=== PATIENT | female | born 1940 | race African-American/Black ===

== ENCOUNTER 2016-11-06 10:58 | Inpatient (IN) ==
[2016-11-06] MEDS ORDERED: ALBUTEROL/IPRATROPIUM 3 ML NEB RESP TX PRN (11:48)
[2016-11-06] MEDS ORDERED: ONDANSETRON 4 MG/2 ML VIAL IV PRN (11:48)
[2016-11-06] MEDS ORDERED: ACETAMINOPHEN 325 MG TABLET PO PRN (11:48)
--- NOTE | 2016-11-06 12:01 | Pulmonology History & Physical ---
History of Present Illness Chief complaint: RLL & RML pneumonia, outpt treatment failure History of present illness: SARA Pearl acting as scribe for Dr. Geo Jimenez. Ms. Boo is a 76 year old /Black female from [place], [place]. She was seen today [facility] for a previously scheduled three month follow up exam, but was found to have an acute RML and RLL infiltrate and a possible early lingular infiltrate also compatible with pneumonia. She had been seen in the Emergency Department Thursday11/02/16 with flu- like symptoms and fever and treated with Tamiflu and Prednisone and f/u with PCP in 2-3 days if no improvement. Today in the office she was hypoxic with o2 sat 89% on room air, normally she is anywhere from 98-99% on room air. She was very SOB and weak, unable to stand for lateral view CXR, cough, congestion, wheezing, and chills. She complained of cough, wheeze, chest congestion, chills. Because of her acute illness, multiple co-morbidities, and advanced age , she has been admitted for further evaluation and care. She reports increased shortness of breath and MORRISSEY of two days duration. She denies any cardiac angina or palpitations. She denies reflux or dysphagia. There has been no bleeding from any site. No change in bowel or bladder habits. No TIA symptoms or syncope. All other systems were reviewed and were negative. Allergies: Bactrim DS hurt her stomach. She does not tolerate Motrin or Benadryl. Cipro hurt her stomach. Cannot tolerate Hydrocodone. Home medications: See list. Immunizations: She takes yearly flu shots. She had a pneumovax in 2010. Past medical history/ Surgical history: [facility] hospitalization 08-02-07 through for RML and RLL pneumonia probably bacterial. She was treated with Merrem during her hospitalization. [facility] hospitalization 03/19/16-03/28/16 under the care of Dr. Jimenez for acute bacterial RML and RLL pneumonia treated with Zithromax and Rocephin initially but cleared after changing to Merrem and Fortaz. Asthma. Esophageal stricture. GERD. High blood pressure. Hypothyroidism. DJD. Gout. Pectus excavatum. History of microaspiration. Cholecystectomy. Near total thyroidectomy 02-23-12 for multinodular goiter. Surgery done by Dr. Marie. Bilateral cataract surgery by Dr. Asif August 2015. Social history: The patient never smoked. She, however, gets a good bit of cigarette exposure due to the fact that her whole family smokes. She does not use alcohol. Family history: Mother and brothers had high blood pressure. Past procedures: She had a barium swallow 12-27-15 which showed timo aspiration. Barium swallow done 02-07-15 showed persistent moderate narrowing of the upper esophagus at C5-C6 levels, a prominent cricopharyngeal muscle impression, and a small sliding hiatal hernia. Esophageal motility study done 07-15, impression was abnormal esophageal motility study with follow-up multiple tertiary contractions. Last esophageal dilatation was 08-15-[address] Bullard. Esophageal dilatation 06-01-[address] Bullard. E-scope done by 02-08-13 showed lower esophageal stricture which was dilated. C- scope done by Dr. Bullard 02-15-13 showed diverticula of the colon and poor prep. Bone densities done 07-02-11 showed AP spine T score of 0.0 and femur T- score of -0.1. Normal bone density. The patient gets yearly mammograms which have been negative for cancer. Laboratory: WBC 6900 with 41.3% segs and 46.2% lymphs. H&H 11.6/37. Electrolytes are normal with normal BUN and Creatinine. Mag is low normal at 1.8. TSH is 5 likely due to her acute illness but we will recheck this. Sputums are pending. CXR. Done 11/06/16 at [facility]. Acute RUL and RLL infiltrate with a possible early lingular infiltrate compatible with pneumonia. Very mild stable cardiomegaly which is accentuated by the patient's body habitus. Pulmonary arteries are top normal in size. There is no hilar adenopathy but the right hilum does contain dense calcifications. This is unchanged from previous studies. The mediastinum is normal. There are scattered areas of interstitial scarring in all five lobes of the lung. Lateral view was not done due to patient inability to stand for XR. Home Medications Medication Instructions Recorded Confirmed Type Clorazepate Dipotassium 3.75 mg PO TID PRN 01/25/15 11/06/16 History Diltiazem HCl [Diltiazem ER (24 360 mg PO DAILY 01/25/15 11/06/16 History hr)] Loratadine [Claritin] 10 mg PO DAILY 01/25/15 11/06/16 History Metoprolol Tartrate 25 mg PO BID 01/25/15 11/06/16 History Montelukast Tab [Singulair Tab] 10 mg PO DAILY 01/25/15 11/06/16 History Omeprazole [Prilosec] 40 mg PO BIDAC 01/25/15 11/06/16 History Theophylline ER Tab 300 mg PO BID W/MEALS 01/25/15 11/06/16 History Triamterene/Hydrochlorothiazid 1 each PO BID PRN 01/25/15 11/06/16 History [Triamterene-Hctz 37.5-25 mg Cp] Fluticasone/Vilanterol [Breo 1 puff INH DAILY 03/19/16 11/06/16 History Ellipta 100-25 Mcg INH] Allopurinol [Zyloprim] 100 mg PO DAILY #30 tablet 03/28/16 11/06/16 Rx Aspirin Chew Tab 81 mg PO DAILY tablet 03/28/16 11/06/16 Rx Benzonatate [Tessalon] 200 mg PO BID PRN #60 capsule 03/28/16 11/06/16 Rx Docusate Sodium Cap [Colace Cap] 200 mg PO DAILY PRN #0 capsule 03/28/16 Rx Magnesium Chloride [Slow Mag] 64 mg PO DAILY #60 tablet 03/28/16 11/06/16 Rx Albuterol Tab [Proventil Tab] 2 mg PO BID 11/02/16 11/06/16 History Iron (Carbonyl) [Feosol Natural 45 mg PO DAILY 11/02/16 11/06/16 History Release Tab] Levothyroxine Tab [Synthroid Tab] 125 mcg PO DAILY 11/02/16 11/06/16 History Oseltamivir Cap [Tamiflu Cap] 75 mg PO DAILY #10 capsule 11/02/16 11/06/16 Rx Potassium Chloride 10 meq PO DAILY 11/02/16 11/06/16 History predniSONE TAB [PredniSONE] 10 mg PO DAILY 11/02/16 11/06/16 History Allergies Allergy/AdvReac Type Severity Reaction Status Date / Time acetaminophen [From Lortab] Allergy Anxiety Verified 11/02/16 17:29 hydrocodone [From Lortab] Allergy Anxiety Verified 11/02/16 17:29 diphenhydramine AdvReac Dry Mucus Verified 11/02/16 17:29 [From Benadryl] Membranes sulfamethoxazole AdvReac Abdominal Verified 11/02/16 17:29 [From Bactrim] Pain trimethoprim [From Bactrim] AdvReac Abdominal Verified 11/02/16 17:29 Pain Medical,Surgical,& Family Hx - Medical History Cardio: History of: CHF, Hypertension Neurology: No history of: Seizures Endocrine: History of: Thyroid Disorder Respiratory: History of: Asthma Gastrointestinal: History of: GERD, GI Problems (dysphagia) Musculoskeletal: History of: Musculoskeletal Problems (shoulder and arms.) - Surgical History Cardiac Surgeries: Sugical HX of: Cardiac Catheterization HEENT Surgeries: Surgical HX of: Eye Surgery (bilat cataract), Thyroid Surgery ( Thyroidectomy) Abdominal Surgeries: Surgical HX of: Cholecystectomy - Social History Smoking Status: Never smoker Results - Labs CBC & BMP: 11/06/16 12:30 11/06/16 12:30 Lab Results: I have reviewed the past 24 hour labs Exam (Pulmonay) H&P - Constitutional Vitals: BP 131/73 Temp: 98.2 oral HR 62 RR 15 o2 98% on 2L/NC Exam: Psych: Oriented x 3; a pleasant and cooperative patient who is acutely ill appearing. HEENT: Pupils, irises, sclera, conjunctiva, and eyelids are normal. The face is symmetrical without rash or masses. Lips, tongue, buccal mucosa, soft and hard palates, and phayrnx are WNL. Neck: Symmetrical. Thyroid gland is surgically absent. Lymphatics: No submandibular, cervical, or supraclavicular adenopathy. Chest: Symmetrical and slightly kyphotic with mild pectus excavatum. There is significant LAW congestion and expiratory wheeze bilaterally. Breasts: Deferred CV: Regular with a slightly lateral PMI, positive S4, increased P2. There is no murmur, gallop, or rub. Arterial: Carotids with a fair upstroke. There is no bruit. Upper extremity pulses are palpable. Lower extremity pulses are palpable. Venous: Exam of the neck, upper, and lower extremities is normal Abd: No appreciable organomegaly, masses, tenderness, or bruit; Bowel sounds are positive x 4; The aorta was not palpated /Rectal: Deferred Extremities: No clubbing, cyanosis, edema, or obvious DVT Skin: No cancerous or infectious lesions of the exposed, examined skin; the perineal area was not examined M/S: Age appropriate loss of the normal curvature of the cervical, thoracic, and lumbar spine. Pectus excavatum is noted. Neurological: Cranial nerves are intact, Long tract motor function is intact; Sensory exam was not done; gait was not tested. The remainder of the exam was noncontributory. Impression: #1 Acute right middle and right lower lobe infiltrate with possible early lingular infiltrate, compatible pneumonia most likely bacterial component sputums are pending. #2 Shortness of breath with wheezing #3 GERD #4 Bronchitis with bronchospasm #5 Mild cardiomegaly #6 Hypothyroidism #7 See past history Plan #1 Admit to inpatient for further evaluation and treatment #2 IV antibiotics and steroids as ordered #3 Inhalation therapy with Duonebs QID and PRN #4 Sputum for gram stain C&S, labs as ordered #5 Repeat CXR in AM #6 Continue home meds as ordered #7 See orders.
--- NOTE | 2016-11-06 12:26 | EKG Report ---
Stationary ECG Study [facility] Test Date: 11/06/2016 12:24:19 PM Pat Name: LINH ARMENDARIZ Department: Room: 537 Gender: F Underwriting Assistant: TOSIN : 1940 Requested by: Za Marshall Order Number: [id number] Reading MD: AKBAR BATES Intervals [place] Rate: 59 P: 68 OR: 198 QRS: 98 QRSD: 81 T: 49 QT: 402 QTc: 402 Interpretive Statements (DR. AKBAR BATES TO INTERP) SINUS RHYTHM BORDERLINE RIGHT AXIS DEVIATION NONSPECIFIC T-WAVE ABNORMALITY Electronically Signed On 11-09-16 17:50:06 CDT by AKBAR BATES [email or web address]
[2016-11-06 12:39] LABS: Basophils % 0.4 % (0.0-0.8); Eosinophils # 0.3 10*3/uL (0.0-0.87); Eosinophils % 3.6 % (0.00-10.9); Hemoglobin 11.6 GM/DL (12.0-16.0); Immature Granulocytes % 0.6 %; Immature Granulocytes Absolute 0.04 #; Lymphocytes # 3.2 10*3/uL (1.4-4.0); Lymphocytes % 46.2 % (21.3-54.2); Mean Corpuscular HGB Conc 31.4 GM/DL (32-36); Mean Corpuscular Hemoglobin 30 PG (27-34); Mean Corpuscular Volume 96.1 FL (87-102); Mean Platelet Volume 10.1 FL (9.6-12.0); Monocytes # 0.6 10*3/uL (0.11-0.8); Monocytes % 7.9 % (1.7-12.7); Neutrophils # 2.9 10*3/uL (1.4-7.4); Neutrophils % 41.3 % (38.7-73.9); Platelet Count 203 T/CUMM (130-400); Red Blood Count 3.85 MC/CUMM (3.8-5.5); Red Cell Distribution Width 15.6 % (9.3-17.3); White Blood Count 6.9 T/CUMM (4-12)
[2016-11-06 13:10] LABS: Band Neutrophils 1 % (0-10); Eosinophils 5 % (0-10); Hypochromasia 1+; Lymphocytes 39 % (20-55); Platelet Estimate Adequate; Segmented Neutrophils 49 % (50-85); Total Cells Counted 100
[2016-11-06 13:25] LABS: Albumin 3.4 G/DL (3.4-5.0); Bilirubin,Total 0.4 MG/DL (0.2-1.0); Calcium 9.2 MG/DL (8.5-10.1); Magnesium 1.8 MG/DL (1.8-2.4); Osmolality,Calculated 288.7 MOS/KG (273-304); Potassium 4.1 MMOL/L (3.5-5.1); Thyroid Stimulating Hormone 5.99 uIU/ml (0.358-3.74); Total Protein 6.3 G/DL (6.4-8.3)
[2016-11-06] MEDS: ALBUTEROL/IPRATROPIUM 3 ML NEB RESP TX SCH ×2 (14:20→19:49)
[2016-11-06] MEDS: methylPREDNISolone SOD SUC 40 MG/1 ML VIAL IV SCH ×2 (16:13→23:50)
[2016-11-06] MEDS: CLINDAMYCIN INJ 300 MG in PREMIX 1 EACH IV SCH ×3 (16:18→23:52)
[2016-11-06] MEDS: MEROPENEM 500 MG in SODIUM CHLORIDE 0.9% 100 ML IV SCH ×2 (16:26→21:10)
[2016-11-06] MEDS: THEOPHYLLINE ER 300 MG TABLET PO SCH (17:03)
[2016-11-06 17:06] LABS: Apearance,Urine CLEAR (Clear); Bacteria,Urine Occasional /HPF (Few); Bilirubin,Urine Negative (Negative); Blood, Urine Negative (Negative); Glucose,Urine (UA) Negative (Negative); Ketones,Urine Negative (Negative); Nitrite,Urine Negative (Negative); Protein,Urine Negative; RBC,Urine 1 /HPF (0-4); Squamous Epithelial Cell,Urine Occasional /HPF (0-10); Urine Color Yellow (Yellow); Urine Specific Gravity 1.013 (1.001-1.035); Urine Urobilinogen < 2.0 EU/DL (0.2-1.0); WBC,Urine 2 /HPF (0-6)
[2016-11-06] MEDS: METOPROLOL TARTRATE 25 MG TABLET PO SCH (21:07)
[2016-11-06] MEDS: ALBUTEROL 2 MG TABLET PO SCH (21:07)
[2016-11-06] MEDS: MONTELUKAST 10 MG TABLET PO SCH (21:07)
[2016-11-07] MEDS: MEROPENEM 500 MG in SODIUM CHLORIDE 0.9% 100 ML IV SCH ×3 (04:15→20:56)
[2016-11-07 06:42] LABS: Basophils % 0.2 % (0.0-0.8); Hematocrit 33.9 VOL% (35.7-47.0); Hemoglobin 10.6 GM/DL (12.0-16.0); Immature Granulocytes Absolute 0.09 #; Lymphocytes # 1.2 10*3/uL (1.4-4.0); Lymphocytes % 26.7 % (21.3-54.2); Mean Corpuscular HGB Conc 31.3 GM/DL (32-36); Mean Corpuscular Hemoglobin 30 PG (27-34); Mean Corpuscular Volume 94.7 FL (87-102); Mean Platelet Volume 10.8 FL (9.6-12.0); Monocytes # 0.1 10*3/uL (0.11-0.8); Monocytes % 1.3 % (1.7-12.7); Neutrophils # 3.2 10*3/uL (1.4-7.4); Neutrophils % 69.8 % (38.7-73.9); Platelet Count 192 T/CUMM (130-400); Red Blood Count 3.58 MC/CUMM (3.8-5.5); Red Cell Distribution Width 15.5 % (9.3-17.3); White Blood Count 4.5 T/CUMM (4-12)
[2016-11-07] MEDS: CLINDAMYCIN INJ 300 MG in PREMIX 1 EACH IV SCH ×3 (06:50→17:19)
[2016-11-07] MEDS: LEVOTHYROXINE 125 MCG TABLET PO SCH (06:50)
[2016-11-07 07:04] LABS: Band Neutrophils 1 % (0-10); Hypochromasia 1+; Lymphocytes 13 % (20-55); Platelet Estimate Adequate; Segmented Neutrophils 85 % (50-85); Total Cells Counted 100
[2016-11-07 07:11] LABS: Calcium 8.7 MG/DL (8.5-10.1); Osmolality,Calculated 296.6 MOS/KG (273-304)
[2016-11-07] MEDS: ALBUTEROL/IPRATROPIUM 3 ML NEB RESP TX SCH ×4 (07:41→19:53)
--- NOTE | 2016-11-07 07:57 | XRay Report ---
Referring Physician: Geo Jimenez Exam: XR chest 1V portable Date: November 07, 2016 at 7:07 AM Reason: Shortness of breath Comparison: Chest one view portable March 28, 2016 Findings: The cardiac silhouette is again enlarged. The interstitial markings are prominent bilaterally, and there are bibasilar opacities. This is concerning for pulmonary edema and atelectasis, but superimposed pneumonia is not excluded. No pneumothorax is identified, but there is mild bilateral pleural fluid. The osseous structures appear stable. A surgical clip is noted at the right neck. Impression: There has been no significant change. PROCEDURE INTERPRETED AT [facility] DEPARTMENT OF RADIOLOGY Final Report Signed by: Dr. Natalia River
[2016-11-07] MEDS: DILTIAZEM CD 180 MG CAPSULE PO SCH (09:30)
[2016-11-07] MEDS: POTASSIUM CHLORIDE 10 MEQ TABLET PO SCH (09:33)
[2016-11-07] MEDS: ASPIRIN CHEW 81 MG TABLET PO SCH (09:33)
[2016-11-07] MEDS: CLORAZEPATE 3.75 MG TABLET PO PRN ×2 (09:33→20:57)
[2016-11-07] MEDS: DOCUSATE SODIUM 100 MG CAPSULE PO PRN (09:33)
[2016-11-07] MEDS: TRIAMTERENE/HCTZ 37.5-25 MG CAPSULE PO PRN ×2 (09:33→20:51)
[2016-11-07] MEDS: ALLOPURINOL 100 MG TABLET PO SCH (09:33)
[2016-11-07] MEDS: THEOPHYLLINE ER 300 MG TABLET PO SCH ×2 (09:34→17:19)
[2016-11-07] MEDS: IRON (CARBONYL) 45 MG TABLET PO SCH (09:34)
[2016-11-07] MEDS: PANTOPRAZOLE 40 MG TABLET PO SCH (09:34)
[2016-11-07] MEDS: MAGNESIUM CHLORIDE 64 MG TABLET PO SCH (09:34)
[2016-11-07] MEDS: MONTELUKAST 10 MG TABLET PO SCH ×2 (11:01→20:56)
[2016-11-07] MEDS: METOPROLOL TARTRATE 25 MG TABLET PO SCH ×2 (11:01→20:56)
[2016-11-07] MEDS: methylPREDNISolone SOD SUC 40 MG/1 ML VIAL IV SCH (12:19)
--- NOTE | 2016-11-07 13:24 | Pulmonology Progress Note ---
Pulmonary - PN: Subj Interval history: Henri Pedro, ANP-BC, GNP-BC, acting as scribe for Dr. Geo Jimenez Mrs. Boo is a 76-year-old -[place] female who is [facility] for an acute right middle lobe and right lower lobe infiltrate and possible early lingular infiltrate compatible with pneumonia. Patient was seen today along with Brii Garcia RN. The patient is in isolation cart outside of her room. When asked about this, the patient had told nursing staff that she was influenza positive. She was seen at [facility] on 11/02/2016. Influenza a and B were both negative. The patient was treated prophylactically with Tamiflu 75 mg daily for 5 days. Without a positive test, the patient's isolation cart can be removed. Today's chest x-ray continues to show bibasilar infiltrates. We will repeat a chest x-ray on Thursday. Ms. Fields feels that she is breathing slightly better. We will continue her present treatment. Note, she is receiving albuterol tablets, inhalation therapy , Solu-Medrol, Singulair, PPI, theophylline, and IV antibiotics of Cleocin and Merrem. Sputum Gram stain showed many gram-positive cocci, few gram-negative rods, and few gram-positive rods. Sputum culture is pending. Blood cultures are negative at 1 day. Urine cultures growing no organisms. Medications have been reviewed. We made no changes today. Labs been reviewed. White count is 4500 with a normal differential; H&H 10.6/ 33.9; platelet count 192,000; creatinine 1.20, BUN 20, sodium 146, potassium 5.0 ; TSH was elevated at 5.990 however free T4 was normal at 1.10; liver function tests within normal limits; BNP 6; calcium 8.7, albumin 3.4, total protein 6.3; theophylline level 17.9. Exam (Progress Note) - Constitutional Vitals: Period Temp Pulse Resp BP Sys/Mayers Pulse Ox Last 24 Hr 97.2 F-99.0 F 55-82 15-22 112-140/54-75 89-100 Exam: Chest... See above Heart no gallop Abdomen is nontender and nondistended; bowel sounds are positive 4 Extremities with nothing to suggest acute deep venous femoral phlebitis Psychiatric oriented 3 Neurologic long-term motor function is intact Plan: Continue present treatment. Repeat chest x-ray and CBC on Thursday. See orders. Results - Labs CBC & BMP: 11/07/16 05:26 11/07/16 05:25
[2016-11-08] MEDS: CLINDAMYCIN INJ 300 MG in PREMIX 1 EACH IV SCH ×4 (01:01→17:30)
[2016-11-08] MEDS: methylPREDNISolone SOD SUC 40 MG/1 ML VIAL IV SCH ×2 (01:02→13:52)
[2016-11-08] MEDS: MEROPENEM 500 MG in SODIUM CHLORIDE 0.9% 100 ML IV SCH ×3 (04:10→20:30)
[2016-11-08] MEDS: ALBUTEROL 2 MG TABLET PO SCH ×4 (05:14→20:30)
[2016-11-08] MEDS: LEVOTHYROXINE 125 MCG TABLET PO SCH (06:30)
[2016-11-08 06:37] LABS: Basophils % 0.1 % (0.0-0.8); Hematocrit 31.4 VOL% (35.7-47.0); Hemoglobin 9.9 GM/DL (12.0-16.0); Immature Granulocytes % 5.5 %; Immature Granulocytes Absolute 0.64 #; Lymphocytes # 1.7 10*3/uL (1.4-4.0); Lymphocytes % 14.5 % (21.3-54.2); Mean Corpuscular HGB Conc 31.5 GM/DL (32-36); Mean Corpuscular Hemoglobin 30 PG (27-34); Mean Corpuscular Volume 95.2 FL (87-102); Mean Platelet Volume 10.3 FL (9.6-12.0); Monocytes # 0.2 10*3/uL (0.11-0.8); Monocytes % 1.9 % (1.7-12.7); Platelet Count 192 T/CUMM (130-400); Red Cell Distribution Width 15.3 % (9.3-17.3); White Blood Count 11.6 T/CUMM (4-12)
[2016-11-08 07:05] LABS: Lymphocytes 9 % (20-55); Metamyelocytes 1 %; Segmented Neutrophils 87 % (50-85); Total Cells Counted 100
[2016-11-08 07:06] LABS: Hypochromasia 2+; Platelet Estimate Normal
[2016-11-08 07:11] LABS: Calcium 8.6 MG/DL (8.5-10.1); Osmolality,Calculated 294.8 MOS/KG (273-304); Potassium 4.9 MMOL/L (3.5-5.1)
[2016-11-08] MEDS: ALBUTEROL/IPRATROPIUM 3 ML NEB RESP TX SCH ×4 (07:18→19:54)
[2016-11-08] MEDS: MONTELUKAST 10 MG TABLET PO SCH ×2 (08:54→20:30)
[2016-11-08] MEDS: MAGNESIUM CHLORIDE 64 MG TABLET PO SCH (08:54)
[2016-11-08] MEDS: ALLOPURINOL 100 MG TABLET PO SCH (08:55)
[2016-11-08] MEDS: THEOPHYLLINE ER 300 MG TABLET PO SCH ×2 (08:55→16:28)
[2016-11-08] MEDS: DILTIAZEM CD 180 MG CAPSULE PO SCH (08:55)
[2016-11-08] MEDS: POTASSIUM CHLORIDE 10 MEQ TABLET PO SCH (08:55)
[2016-11-08] MEDS: IRON (CARBONYL) 45 MG TABLET PO SCH (08:55)
[2016-11-08] MEDS: PANTOPRAZOLE 40 MG TABLET PO SCH (08:57)
[2016-11-08] MEDS: ASPIRIN CHEW 81 MG TABLET PO SCH (08:58)
[2016-11-08] MEDS: METOPROLOL TARTRATE 25 MG TABLET PO SCH ×2 (10:29→20:30)
--- NOTE | 2016-11-08 14:32 | Pulmonology Progress Note ---
Pulmonary - PN: Subj Interval history: Mrs. Boo is a 76-year-old -[place] female who is admitted 11/06/2016 [facility] for an acute right middle lobe and right lower lobe infiltrate and possible early lingular infiltrate compatible with pneumonia. Patient was seen today along with Brii Garcia RN. The patient is in isolation cart outside of her room. When asked about this, the patient had told nursing staff that she was influenza positive. She was seen at [facility] on 11/02/2016. Influenza a and B were both negative. The patient was treated prophylactically with Tamiflu 75 mg daily for 5 days. Without a positive test, the patient's isolation cart can be removed. Today's chest x-ray continues to show bibasilar infiltrates. We will repeat a chest x-ray on Thursday. Ms. Fields feels that she is breathing slightly better. We will continue her present treatment. Note, she is receiving albuterol tablets, inhalation therapy , Solu-Medrol, Singulair, PPI, theophylline, and IV antibiotics of Cleocin and Merrem. Sputum Gram stain showed many gram-positive cocci, few gram-negative rods, and few gram-positive rods. Sputum culture is pending. Blood cultures are negative at 1 day. Urine cultures growing no organisms. Medications have been reviewed. We made no changes today. Labs been reviewed. White count is 4500 with a normal differential; H&H 10.6/ 33.9; platelet count 192,000; creatinine 1.20, BUN 20, sodium 146, potassium 5.0 ; TSH was elevated at 5.990 however free T4 was normal at 1.10; liver function tests within normal limits; BNP 6; calcium 8.7, albumin 3.4, total protein 6.3; theophylline level 17.9. 11/08/2016. Patient continues to improve. Her breathing is better every day. She is mobilized and thick tenacious brownish sputum. So far she has no positive cultures. White blood cell count is 11,678 segs and 14.5 lymphocytes. H&H is 9.9/31.4. Platelets are 192,000. Electrolytes are normal. Creatinine is 1.1 with a BUN of 30. Last theophylline level was 17.9. Physical exam. Vital signs. See below Psychiatric. Oriented 3 Neurologic. Cranial nerves are intact with chronic hoarseness. Long track motor functions intact. Neck. Symmetrical. No meningismus Lymphatics. No submandibular cervical supraclavicular or epitrochlear adenopathy. Chest. Inspiratory squeaks at the right base. Slight large airway congestion on the right. No wheezes. No chest wall tenderness. Heart. No gallop. Abdomen. Nondistended. Positive bowel sounds Extremities. Nothing to suggest deep venous thrombophlebitis. Musculoskeletal. Age-appropriate loss normal curvature cervical thoracic lumbar spine Skin of the face hands showed no infectious or cancerous lesions. The remainder the physical exam is negative Plan. Number continue present regimen. Patient is making good improvement. 2. In a few days will need follow-up CBC and chest x-ray Exam (Progress Note) - Constitutional Vitals: Period Temp Pulse Resp BP Sys/Mayers Pulse Ox Last 24 Hr 97.4 F-98.6 F 59-83 16-20 128-151/55-77 93-100 Results - Labs CBC & BMP: 11/08/16 06:05 11/08/16 06:05
[2016-11-08] MEDS: TRIAMTERENE/HCTZ 37.5-25 MG CAPSULE PO PRN (20:30)
[2016-11-08] MEDS: CLORAZEPATE 3.75 MG TABLET PO PRN (20:30)
[2016-11-08] MEDS: DOCUSATE SODIUM 100 MG CAPSULE PO PRN (20:30)
[2016-11-09] MEDS: methylPREDNISolone SOD SUC 40 MG/1 ML VIAL IV SCH ×2 (00:35→11:41)
[2016-11-09] MEDS: CLINDAMYCIN INJ 300 MG in PREMIX 1 EACH IV SCH ×4 (00:35→17:01)
[2016-11-09] MEDS: MEROPENEM 500 MG in SODIUM CHLORIDE 0.9% 100 ML IV SCH (04:57)
[2016-11-09] MEDS: LEVOTHYROXINE 125 MCG TABLET PO SCH (06:38)
[2016-11-09] MEDS: ALBUTEROL/IPRATROPIUM 3 ML NEB RESP TX SCH ×4 (07:43→19:33)
[2016-11-09 08:03] LABS: Basophils % 0.2 % (0.0-0.8); Hematocrit 33.8 VOL% (35.7-47.0); Hemoglobin 10.8 GM/DL (12.0-16.0); Immature Granulocytes % 10.2 %; Immature Granulocytes Absolute 1.31 #; Lymphocytes % 7.8 % (21.3-54.2); Mean Corpuscular Hemoglobin 30 PG (27-34); Mean Corpuscular Volume 94.7 FL (87-102); Monocytes # 0.2 10*3/uL (0.11-0.8); Monocytes % 1.6 % (1.7-12.7); NRBC # 0.02 10*3/uL; Neutrophils # 10.3 10*3/uL (1.4-7.4); Neutrophils % 80.2 % (38.7-73.9); Platelet Count 234 T/CUMM (130-400); Red Blood Count 3.57 MC/CUMM (3.8-5.5); Red Cell Distribution Width 15.5 % (9.3-17.3); White Blood Count 12.8 T/CUMM (4-12)
[2016-11-09 08:25] LABS: Band Neutrophils 5 % (0-10); Hypochromasia 1+; Lymphocytes 6 % (20-55); Ovalocytes Slight; Platelet Estimate Adequate; Segmented Neutrophils 88 % (50-85); Total Cells Counted 100
[2016-11-09 08:28] LABS: Calcium 9.2 MG/DL (8.5-10.1); Osmolality,Calculated 296.8 MOS/KG (273-304); Potassium 4.6 MMOL/L (3.5-5.1)
[2016-11-09] MEDS: THEOPHYLLINE ER 300 MG TABLET PO SCH ×2 (09:21→17:04)
[2016-11-09] MEDS: MAGNESIUM CHLORIDE 64 MG TABLET PO SCH (09:21)
[2016-11-09] MEDS: IRON (CARBONYL) 45 MG TABLET PO SCH (09:21)
[2016-11-09] MEDS: ALBUTEROL 2 MG TABLET PO SCH ×2 (09:21→20:05)
[2016-11-09] MEDS: MONTELUKAST 10 MG TABLET PO SCH ×2 (09:21→20:05)
[2016-11-09] MEDS: POTASSIUM CHLORIDE 10 MEQ TABLET PO SCH (09:21)
[2016-11-09] MEDS: ALLOPURINOL 100 MG TABLET PO SCH (09:21)
[2016-11-09] MEDS: ASPIRIN CHEW 81 MG TABLET PO SCH (09:22)
[2016-11-09] MEDS: BENZONATATE 100 MG CAPSULE PO PRN ×2 (09:22→17:04)
[2016-11-09] MEDS: METOPROLOL TARTRATE 25 MG TABLET PO SCH ×2 (09:22→20:05)
[2016-11-09] MEDS: PANTOPRAZOLE 40 MG TABLET PO SCH (09:22)
[2016-11-09] MEDS: DILTIAZEM CD 180 MG CAPSULE PO SCH (09:29)
[2016-11-09] MEDS: VANCOMYCIN INJ 1,000 MG in SODIUM CHLORIDE 0.9% 250 ML IV SCH (12:52)
--- NOTE | 2016-11-09 13:15 | Pulmonology Progress Note ---
Pulmonary - PN: Subj Interval history: Mrs. Boo is a 76-year-old -[place] female who is admitted 11/06/2016 [facility] for an acute right middle lobe and right lower lobe infiltrate and possible early lingular infiltrate compatible with pneumonia. Patient was seen today along with Brii Garcia RN. The patient is in isolation cart outside of her room. When asked about this, the patient had told nursing staff that she was influenza positive. She was seen at [place] ER on 11/02/2016. Influenza a and B were both negative. The patient was treated prophylactically with Tamiflu 75 mg daily for 5 days. Without a positive test, the patient's isolation cart can be removed. Today's chest x-ray continues to show bibasilar infiltrates. We will repeat a chest x-ray on Thursday. Ms. Fields feels that she is breathing slightly better. We will continue her present treatment. Note, she is receiving albuterol tablets, inhalation therapy , Solu-Medrol, Singulair, PPI, theophylline, and IV antibiotics of Cleocin and Merrem. Sputum Gram stain showed many gram-positive cocci, few gram-negative rods, and few gram-positive rods. Sputum culture is pending. Blood cultures are negative at 1 day. Urine cultures growing no organisms. Medications have been reviewed. We made no changes today. Labs been reviewed. White count is 4500 with a normal differential; H&H 10.6/ 33.9; platelet count 192,000; creatinine 1.20, BUN 20, sodium 146, potassium 5.0 ; TSH was elevated at 5.990 however free T4 was normal at 1.10; liver function tests within normal limits; BNP 6; calcium 8.7, albumin 3.4, total protein 6.3; theophylline level 17.9. 11/08/2016. Patient continues to improve. Her breathing is better every day. She is mobilized and thick tenacious brownish sputum. So far she has no positive cultures. White blood cell count is 11,678 segs and 14.5 lymphocytes. H&H is 9.9/31.4. Platelets are 192,000. Electrolytes are normal. Creatinine is 1.1 with a BUN of 30. Last theophylline level was 17.9. 11/09/2016. Patient is a good bit of large airway congestion over her right upper and right lower lung. Sputum's have come back today growing methicillin- resistant staph aureus. This is exquisitely sensitive to Cleocin which she is on. I have added vancomycin for the time being. I have stopped meropenem. Follow-up chest x-ray has been ordered for tomorrow. Creatinine is 1.2. Electrolytes are normal. White blood cell count is 12,800 with 86 8 lymphs. H& H is stable at 10.8/33.8 and platelets of 234,000 Physical exam. Vital signs. See below Psychiatric. Oriented 3 Neurologic. Cranial nerves are intact with chronic hoarseness. Long track motor functions intact. Neck. Symmetrical. No meningismus Lymphatics. No submandibular cervical supraclavicular or epitrochlear adenopathy. Chest. Inspiratory squeaks at the right base. Slight large airway congestion on the right. No wheezes. No chest wall tenderness. Heart. No gallop. Abdomen. Nondistended. Positive bowel sounds Extremities. Nothing to suggest deep venous thrombophlebitis. Musculoskeletal. Age-appropriate loss normal curvature cervical thoracic lumbar spine Skin of the face hands showed no infectious or cancerous lesions. The remainder the physical exam is negative Plan. #1. See my note 11/09/2016. About Exam (Progress Note) - Constitutional Vitals: Period Temp Pulse Resp BP Sys/Mayers Pulse Ox Last 24 Hr 97.4 F-98.2 F 65-80 16-18 118-142/58-69 94-99 Results - Labs CBC & BMP: 11/09/16 07:46 11/09/16 07:46
[2016-11-09] MEDS: CLORAZEPATE 3.75 MG TABLET PO PRN (20:05)
[2016-11-09] MEDS: TRIAMTERENE/HCTZ 37.5-25 MG CAPSULE PO PRN (20:05)
[2016-11-10] MEDS: CLINDAMYCIN INJ 300 MG in PREMIX 1 EACH IV SCH ×4 (00:21→17:13)
[2016-11-10] MEDS: methylPREDNISolone SOD SUC 40 MG/1 ML VIAL IV SCH ×2 (00:22→13:47)
[2016-11-10] MEDS: LEVOTHYROXINE 125 MCG TABLET PO SCH (06:22)
[2016-11-10 06:56] LABS: Basophils % 0.3 % (0.0-0.8); Hematocrit 32.6 VOL% (35.7-47.0); Hemoglobin 10.3 GM/DL (12.0-16.0); Immature Granulocytes % 12.9 %; Immature Granulocytes Absolute 1.59 #; Lymphocytes # 1.4 10*3/uL (1.4-4.0); Lymphocytes % 10.9 % (21.3-54.2); Mean Corpuscular HGB Conc 31.6 GM/DL (32-36); Mean Corpuscular Hemoglobin 30 PG (27-34); Mean Corpuscular Volume 94.8 FL (87-102); Mean Platelet Volume 10.1 FL (9.6-12.0); Monocytes # 0.3 10*3/uL (0.11-0.8); Monocytes % 2.7 % (1.7-12.7); NRBC # 0.03 10*3/uL; Neutrophils % 73.2 % (38.7-73.9); Platelet Count 247 T/CUMM (130-400); Red Blood Count 3.44 MC/CUMM (3.8-5.5); Red Cell Distribution Width 15.7 % (9.3-17.3); White Blood Count 12.3 T/CUMM (4-12)
[2016-11-10 07:46] LABS: Hypochromasia 1+; Lymphocytes 13 % (20-55); Microcytosis 1+; Myelocytes 3 %; Segmented Neutrophils 80 % (50-85); Total Cells Counted 100
[2016-11-10 07:47] LABS: Acanthocytes Few; Ovalocytes Slight; Platelet Estimate Adequate
[2016-11-10] MEDS: ALBUTEROL/IPRATROPIUM 3 ML NEB RESP TX SCH ×4 (07:52→19:26)
[2016-11-10] MEDS: THEOPHYLLINE ER 300 MG TABLET PO SCH ×2 (08:18→16:52)
[2016-11-10] MEDS: IRON (CARBONYL) 45 MG TABLET PO SCH (08:18)
[2016-11-10] MEDS: METOPROLOL TARTRATE 25 MG TABLET PO SCH ×2 (08:18→22:19)
[2016-11-10] MEDS: MONTELUKAST 10 MG TABLET PO SCH ×2 (08:18→22:19)
[2016-11-10] MEDS: MAGNESIUM CHLORIDE 64 MG TABLET PO SCH (08:19)
[2016-11-10] MEDS: PANTOPRAZOLE 40 MG TABLET PO SCH (08:19)
[2016-11-10] MEDS: POTASSIUM CHLORIDE 10 MEQ TABLET PO SCH (08:19)
[2016-11-10] MEDS: ASPIRIN CHEW 81 MG TABLET PO SCH (08:19)
[2016-11-10] MEDS: ALBUTEROL 2 MG TABLET PO SCH ×2 (08:19→22:20)
[2016-11-10] MEDS: ALLOPURINOL 100 MG TABLET PO SCH (08:19)
[2016-11-10] MEDS: DILTIAZEM CD 180 MG CAPSULE PO SCH (08:20)
--- NOTE | 2016-11-10 09:34 | XRay Report ---
XR chest 1V portable Indication: Pneumonia. Chest one view: Comparison 11/07/2016. Cardiomegaly, normal mediastinal contour and calcified atheromatous disease are stable. Cluster of calcified nodules within the right middle lobe again noted as well. Given variation in technique, bibasilar infiltrates or atelectasis are stable. No new infiltrates are seen. Impression: No appreciable change overall. PROCEDURE INTERPRETED AT [facility] DEPARTMENT OF RADIOLOGY Final Report Signed by: Jossue Mckeon M.D.
--- NOTE | 2016-11-10 12:44 | Pulmonology Progress Note ---
Pulmonary - PN: Subj Interval history: Henri Pedro, ANP-BC, GNP-BC, acting as scribe for Dr. Geo Jimenez Mrs. Boo is a 76-year-old -[place] female who is admitted 11/[facility] for an acute right middle lobe and right lower lobe infiltrate and possible early lingular infiltrate compatible with pneumonia. Patient was seen today along with Jane Rosales RN. She was seen at [facility] ER on 11/02/2016. Influenza a and B were both negative. The patient was treated prophylactically with Tamiflu 75 mg daily for 5 days. Today's chest x-ray continues to show a RLL infiltrate, but the previously noted LLL infiltrate has nearly resolved. Note, she is receiving albuterol tablets, inhalation therapy, Solu-Medrol, Singulair, PPI, theophylline, and IV antibiotics of Cleocin and Vancomycin. Sputum Gram stain showed many gram-positive cocci, few gram-negative rods, and few gram-positive rods. Sputum culture grew MRSA. Blood cultures are negative at day three. Urine cultures growing no organisms. Medications have been reviewed. We made no changes today. Labs been reviewed. White count is 12,300 with 73.2% segs; H&H 10.3/32.6; platelet count 247,000 Exam (Progress Note) - Constitutional Vitals: Period Temp Pulse Resp BP Sys/Mayers Pulse Ox Last 24 Hr 97.7 F-97.9 F 52-88 17-18 119-132/52-69 96-100 Exam: Chest much less wheeze; still with loose LAW congestion Heart no gallop Abdomen is nontender and nondistended; bowel sounds are positive 4 Extremities with nothing to suggest acute deep venous femoral phlebitis Psychiatric oriented 3 Neurologic long-term motor function is intact Plan: Continue present treatment including Cleocin and Vancomycin for MRSA in sputum. See orders. Results - Labs CBC & BMP: 11/10/16 06:17 11/09/16 07:46
[2016-11-10] MEDS: VANCOMYCIN INJ 1,000 MG in SODIUM CHLORIDE 0.9% 250 ML IV SCH (13:47)
[2016-11-11] MEDS: methylPREDNISolone SOD SUC 40 MG/1 ML VIAL IV SCH ×2 (01:01→11:25)
[2016-11-11] MEDS: CLINDAMYCIN INJ 300 MG in PREMIX 1 EACH IV SCH ×4 (01:01→16:59)
[2016-11-11] MEDS: ALBUTEROL/IPRATROPIUM 3 ML NEB RESP TX SCH ×4 (07:50→19:19)
[2016-11-11] MEDS: LEVOTHYROXINE 125 MCG TABLET PO SCH (08:12)
[2016-11-11] MEDS: IRON (CARBONYL) 45 MG TABLET PO SCH (09:03)
[2016-11-11] MEDS: THEOPHYLLINE ER 300 MG TABLET PO SCH ×2 (09:04→17:00)
[2016-11-11] MEDS: POTASSIUM CHLORIDE 10 MEQ TABLET PO SCH (09:05)
[2016-11-11] MEDS: MONTELUKAST 10 MG TABLET PO SCH ×2 (09:05→21:58)
[2016-11-11] MEDS: METOPROLOL TARTRATE 25 MG TABLET PO SCH ×2 (09:05→21:59)
[2016-11-11] MEDS: DILTIAZEM CD 180 MG CAPSULE PO SCH (09:05)
[2016-11-11] MEDS: PANTOPRAZOLE 40 MG TABLET PO SCH (09:05)
[2016-11-11] MEDS: ASPIRIN CHEW 81 MG TABLET PO SCH (09:05)
[2016-11-11] MEDS: ALLOPURINOL 100 MG TABLET PO SCH (09:06)
[2016-11-11] MEDS: MAGNESIUM CHLORIDE 64 MG TABLET PO SCH (09:09)
[2016-11-11] MEDS: ALBUTEROL 2 MG TABLET PO SCH ×2 (09:30→21:58)
--- NOTE | 2016-11-11 11:11 | Pulmonology Progress Note ---
Pulmonary - PN: Subj Interval history: JAN Pearl-Valentine acting as scribe for Dr. Geo Jimenez Mrs. Boo is a 76-year-old -Citizen Of [place] female who is admitted 11/[facility] for an acute right middle lobe and right lower lobe infiltrate and possible early lingular infiltrate compatible with pneumonia. She was seen at [facility] ER on 11/02/2016. Influenza a and B were both negative. The patient was treated prophylactically with Tamiflu 75 mg daily for 5 days. Patient was seen today along with Jane Rosales RN. She is doing well today has been up and ambulatory with physical therapy. Today's chest x-ray continues to show a RLL infiltrate that is resolving. The previously noted LLL infiltrate has resolved. She is receiving albuterol tablets, inhalation therapy, Solu-Medrol, Singulair, PPI, theophylline, and IV antibiotics of Cleocin and Vancomycin. Sputum Gram stain showed many gram-positive cocci, few gram-negative rods, and few gram-positive rods. Sputum culture grew MRSA. Blood cultures are negative. Urine cultures growing no organisms. Medications have been reviewed. We made no changes today. Labs been reviewed. White count is 12,300 with 73.2% segs; H&H 10.3/32.6; platelet count 247,000. Exam (Progress Note) - Constitutional Vitals: Period Temp Pulse Resp BP Sys/Mayers Pulse Ox Last 24 Hr 97.7 F-98.7 F 61-85 15-20 126-168/66-89 95-100 Exam: Chest Slight wheezing that is improved still with loose LAW congestion. Heart no gallop Abdomen is nontender and nondistended; bowel sounds are positive 4 Extremities with nothing to suggest acute deep venous thrombophlebitis. Psychiatric oriented 3 Neurologic long-term motor function is intact Plan: Repeat CXR tomorrow. Continue present treatment including Cleocin and Vancomycin for MRSA in sputum. See orders. Results - Labs CBC & BMP: 11/10/16 06:17 11/09/16 07:46
[2016-11-11] MEDS: VANCOMYCIN INJ 1,000 MG in SODIUM CHLORIDE 0.9% 250 ML IV SCH (13:25)
--- NOTE | 2016-11-11 13:30 | Physician Query Form ---
CLICK EDIT DOCUMENT TO SELECT QUERY ANSWER --> OK --> SIGN Sammi Jules RN [employer] W) [phone] (f) [phone] [email or web address] PROVIDERS: Make your selection(s) from the choices in EACH section by typing an "x" and enter comments in the comment section. Please use your independent medical judgment in providing your response. This request does not imply that any particular answer is desired or expected. CLINICAL INDICATORS: (Providers should not edit this section) Based on documentation of "Acute Right lower lobe and Right middle lobe pneumonia" "Sputums have come back today growing methicillin resistant staph aureus" "This is exquisitely sensitive to Cleocin which she is on. I have added vancomycin for the time being" Based on the above, could you clarify the appropriate diagnosis, if significant , that supports the above abnormalities and additional evaluation, monitoring, and/or treatment rendered: (X ) Treating for MRSA Pneumonia ( ) NOT Treating for MRSA Pneumonia ( ) Other, please specify: ( ) Clinically unable to determine COMMENTS: Use of terms such as suspected, likely, or probable (associated with a specific diagnosis that is being evaluated, monitored, or treated as if it exists) are acceptable and can be restated in the discharge summary if not ruled out. [facility]
[2016-11-12] MEDS: methylPREDNISolone SOD SUC 40 MG/1 ML VIAL IV SCH ×2 (00:56→11:39)
[2016-11-12] MEDS: CLINDAMYCIN INJ 300 MG in PREMIX 1 EACH IV SCH ×4 (00:59→17:31)
--- NOTE | 2016-11-12 05:45 | Pulmonology Progress Note ---
Pulmonary - PN: Subj Interval history: Mrs. Boo is a 76-year-old -Greek female who is admitted 11/06/2016 [facility] for an acute right middle lobe and right lower lobe infiltrate and possible early lingular infiltrate compatible with pneumonia. Patient was seen today along with Brii Garcia RN. The patient is in isolation cart outside of her room. When asked about this, the patient had told nursing staff that she was influenza positive. She was seen at [place]'s ER on 11/02/2016. Influenza a and B were both negative. The patient was treated prophylactically with Tamiflu 75 mg daily for 5 days. Without a positive test, the patient's isolation cart can be removed. Today's chest x-ray continues to show bibasilar infiltrates. We will repeat a chest x-ray on Thursday. Ms. Fields feels that she is breathing slightly better. We will continue her present treatment. Note, she is receiving albuterol tablets, inhalation therapy , Solu-Medrol, Singulair, PPI, theophylline, and IV antibiotics of Cleocin and Merrem. Sputum Gram stain showed many gram-positive cocci, few gram-negative rods, and few gram-positive rods. Sputum culture is pending. Blood cultures are negative at 1 day. Urine cultures growing no organisms. Medications have been reviewed. We made no changes today. Labs been reviewed. White count is 4500 with a normal differential; H&H 10.6/ 33.9; platelet count 192,000; creatinine 1.20, BUN 20, sodium 146, potassium 5.0 ; TSH was elevated at 5.990 however free T4 was normal at 1.10; liver function tests within normal limits; BNP 6; calcium 8.7, albumin 3.4, total protein 6.3; theophylline level 17.9. 11/08/2016. Patient continues to improve. Her breathing is better every day. She is mobilized and thick tenacious brownish sputum. So far she has no positive cultures. White blood cell count is 11,678 segs and 14.5 lymphocytes. H&H is 9.9/31.4. Platelets are 192,000. Electrolytes are normal. Creatinine is 1.1 with a BUN of 30. Last theophylline level was 17.9. 11/09/2016. Patient is a good bit of large airway congestion over her right upper and right lower lung. Sputum's have come back today growing methicillin- resistant staph aureus. This is exquisitely sensitive to Cleocin which she is on. I have added vancomycin for the time being. I have stopped meropenem. Follow-up chest x-ray has been ordered for tomorrow. Creatinine is 1.2. Electrolytes are normal. White blood cell count is 12,800 with 86 8 lymphs. H& H is stable at 10.8/33.8 and platelets of 234,000 11/12/2016 this patient is being treated for methicillin-resistant staph aureus pneumonia. She has underlying bronchospastic disease. She says she is beginning to feel a lot better. She has chest x-ray and labs scheduled for today but these are not yet done. Medicines have been reviewed no changes have been made. Physical exam. Vital signs. See below Psychiatric. Oriented 3 Neurologic. Cranial nerves are intact with chronic hoarseness. Long track motor functions intact. Neck. Symmetrical. No meningismus Lymphatics. No submandibular cervical supraclavicular or epitrochlear adenopathy. Chest. Inspiratory squeaks at the right base. Slight large airway congestion on the right. No wheezes. No chest wall tenderness. Heart. No gallop. Abdomen. Nondistended. Positive bowel sounds Extremities. Nothing to suggest deep venous thrombophlebitis. Musculoskeletal. Age-appropriate loss normal curvature cervical thoracic lumbar spine Skin of the face hands showed no infectious or cancerous lesions. The remainder the physical exam is negative Plan. #1. See my note 11/09/2016. 2. See my note 11/12/2016. MRSA pneumonia. Improved. Exam (Progress Note) - Constitutional Vitals: Period Temp Pulse Resp BP Sys/Mayers Pulse Ox Last 24 Hr 97.7 F-98.3 F 61-87 18-20 133-168/65-89 97-100 Results - Labs CBC & BMP: 11/10/16 06:17 11/09/16 07:46
[2016-11-12] MEDS: LEVOTHYROXINE 125 MCG TABLET PO SCH (06:57)
[2016-11-12] MEDS: ALBUTEROL/IPRATROPIUM 3 ML NEB RESP TX SCH ×4 (07:45→20:07)
--- NOTE | 2016-11-12 08:22 | XRay Report ---
Exam: XR chest 2V Indication: Pneumonia, cardiomegaly Comparison study: 11/10/2016 Findings: Coaxial is mildly enlarged, similar to prior. There is slight improved aeration within the lung bases with residual patchy basilar opacities may represent residual infectious/inflammatory infiltrates and trace pleural effusions. Upper lungs are predominantly clear. Punctate nodular opacities within the right lower lobe are decreased in prominence from prior. There is no pneumothorax. Osseous structures appear stable from prior. Cholecystectomy clips are noted. Impression: Partial clearing of basilar opacities with stable cardiomegaly. PROCEDURE INTERPRETED AT [facility] DEPARTMENT OF RADIOLOGY Final Report Signed by: Jabier Miranda
[2016-11-12] MEDS: THEOPHYLLINE ER 300 MG TABLET PO SCH ×2 (09:06→17:31)
[2016-11-12] MEDS: DILTIAZEM CD 180 MG CAPSULE PO SCH (09:06)
[2016-11-12] MEDS: ALBUTEROL 2 MG TABLET PO SCH ×2 (09:06→21:49)
[2016-11-12] MEDS: ASPIRIN CHEW 81 MG TABLET PO SCH (09:08)
[2016-11-12] MEDS: POTASSIUM CHLORIDE 10 MEQ TABLET PO SCH (09:08)
[2016-11-12] MEDS: MONTELUKAST 10 MG TABLET PO SCH ×2 (09:08→21:49)
[2016-11-12] MEDS: METOPROLOL TARTRATE 25 MG TABLET PO SCH ×2 (09:08→21:49)
[2016-11-12] MEDS: MAGNESIUM CHLORIDE 64 MG TABLET PO SCH (09:08)
[2016-11-12] MEDS: PANTOPRAZOLE 40 MG TABLET PO SCH (09:08)
[2016-11-12] MEDS: ALLOPURINOL 100 MG TABLET PO SCH (09:08)
[2016-11-12] MEDS: IRON (CARBONYL) 45 MG TABLET PO SCH (09:08)
[2016-11-12] MEDS: VANCOMYCIN INJ 1,000 MG in SODIUM CHLORIDE 0.9% 250 ML IV SCH (14:09)
[2016-11-12] MEDS: NON-FORMULARY MEDICATION (Fluticasone/Vilanterol [Breo Ellipta 100-25 Mcg Inh] 1 PUFF) INH SCH (15:12)
[2016-11-13] MEDS: methylPREDNISolone SOD SUC 40 MG/1 ML VIAL IV SCH ×2 (00:36→11:52)
[2016-11-13] MEDS: CLINDAMYCIN INJ 300 MG in PREMIX 1 EACH IV SCH ×4 (00:36→17:00)
[2016-11-13] MEDS: LEVOTHYROXINE 125 MCG TABLET PO SCH (06:34)
[2016-11-13] MEDS: ALBUTEROL/IPRATROPIUM 3 ML NEB RESP TX SCH ×4 (07:35→20:24)
[2016-11-13] MEDS: ALLOPURINOL 100 MG TABLET PO SCH (09:44)
[2016-11-13] MEDS: ASPIRIN CHEW 81 MG TABLET PO SCH (09:44)
[2016-11-13] MEDS: METOPROLOL TARTRATE 25 MG TABLET PO SCH ×2 (09:44→20:55)
[2016-11-13] MEDS: PANTOPRAZOLE 40 MG TABLET PO SCH (09:44)
[2016-11-13] MEDS: MAGNESIUM CHLORIDE 64 MG TABLET PO SCH (09:44)
[2016-11-13] MEDS: IRON (CARBONYL) 45 MG TABLET PO SCH (09:44)
[2016-11-13] MEDS: DILTIAZEM CD 180 MG CAPSULE PO SCH (09:44)
[2016-11-13] MEDS: THEOPHYLLINE ER 300 MG TABLET PO SCH ×2 (09:45→16:55)
[2016-11-13] MEDS: POTASSIUM CHLORIDE 10 MEQ TABLET PO SCH (09:45)
[2016-11-13] MEDS: MONTELUKAST 10 MG TABLET PO SCH ×2 (09:45→20:55)
[2016-11-13] MEDS: ALBUTEROL 2 MG TABLET PO SCH ×2 (09:45→20:55)
--- NOTE | 2016-11-13 10:22 | Pulmonology Progress Note ---
Pulmonary - PN: Subj Interval history: Henri Pedro, ANP-BC, GNP-BC, acting as scribe for Dr. Geo Jimenez Mrs. Boo is a 76-year-old -Zimbabwean female who is admitted 11/06/2016 from [facility] for an acute right middle lobe and right lower lobe infiltrate and possible early lingular infiltrate compatible with pneumonia. Patient was seen today along with Jane Rosales RN. She was seen at [place]'s ER on 11/02/2016. Influenza a and B were both negative. The patient was treated prophylactically with Tamiflu 75 mg daily for 5 days. Most recent chest x-ray showed bibasilar infiltrates. Note, she is receiving albuterol tablets, inhalation therapy, Solu-Medrol, Singulair, PPI, theophylline , and IV antibiotics of Cleocin and Vancomycin. She, however, states her breathing has markedly improved. Sputum Gram stain showed many gram-positive cocci, few gram-negative rods, and few gram-positive rods. Sputum culture grew MRSA. Blood cultures are negative at day five. Urine cultures growing no organisms. Medications have been reviewed. We made no changes today. Labs been reviewed. No new labs were drawn today. micrographics services supervisor inquired about swing bed placement on discharge. The patient has been significantly ill and is too weak to care for herself at home at the present time. She was agreeable to swing bed placement and has requested [facility] swing bed. A referral has been sent and we are awaiting response back. Exam (Progress Note) - Constitutional Vitals: Period Temp Pulse Resp BP Sys/Mayers Pulse Ox Last 24 Hr 96.6 F-98.9 F 58-88 16-20 126-147/55-80 92-100 Exam: Chest much less wheeze; still with loose LAW congestion Heart no gallop Abdomen is nontender and nondistended; bowel sounds are positive 4 Extremities with nothing to suggest acute deep venous femoral phlebitis Psychiatric oriented 3 Neurologic long-term motor function is intact Plan: Continue present treatment including Cleocin and Vancomycin for MRSA in sputum. Await swing bed decision. Repeat CXR, CBC, and BMP in the morning. See orders. Results - Labs CBC & BMP: 11/10/16 06:17 11/09/16 07:46
[2016-11-13] MEDS: VANCOMYCIN INJ 1,000 MG in SODIUM CHLORIDE 0.9% 250 ML IV SCH (12:24)
[2016-11-14] MEDS: methylPREDNISolone SOD SUC 40 MG/1 ML VIAL IV SCH ×3 (01:54→23:24)
[2016-11-14] MEDS: CLINDAMYCIN INJ 300 MG in PREMIX 1 EACH IV SCH ×6 (01:55→23:24)
[2016-11-14 05:41] LABS: Basophils % 0.1 % (0.0-0.8); Hematocrit 30.4 VOL% (35.7-47.0); Immature Granulocytes % 6.4 %; Immature Granulocytes Absolute 0.77 #; Lymphocytes % 8.1 % (21.3-54.2); Mean Corpuscular HGB Conc 32.9 GM/DL (32-36); Mean Corpuscular Hemoglobin 30 PG (27-34); Mean Corpuscular Volume 91.8 FL (87-102); Mean Platelet Volume 9.9 FL (9.6-12.0); Monocytes # 0.4 10*3/uL (0.11-0.8); Monocytes % 3.5 % (1.7-12.7); NRBC # 0.04 10*3/uL; Neutrophils # 9.8 10*3/uL (1.4-7.4); Neutrophils % 81.9 % (38.7-73.9); Platelet Count 256 T/CUMM (130-400); Red Blood Count 3.31 MC/CUMM (3.8-5.5); Red Cell Distribution Width 16.1 % (9.3-17.3)
[2016-11-14 06:08] LABS: Band Neutrophils 4 % (0-10); Lymphocytes 9 % (20-55); Segmented Neutrophils 85 % (50-85); Total Cells Counted 100
[2016-11-14 06:09] LABS: Burr Cells Slight; Hypochromasia 1+; Microcytosis 1+; Ovalocytes Slight; Platelet Estimate Adequate
[2016-11-14 06:10] LABS: Calcium 9.1 MG/DL (8.5-10.1); Magnesium 2.1 MG/DL (1.8-2.4); Osmolality,Calculated 302.6 MOS/KG (273-304); Potassium 4.9 MMOL/L (3.5-5.1)
[2016-11-14] MEDS: LEVOTHYROXINE 125 MCG TABLET PO SCH (06:53)
[2016-11-14] MEDS: ALBUTEROL/IPRATROPIUM 3 ML NEB RESP TX SCH ×5 (08:02→19:33)
[2016-11-14] MEDS: DILTIAZEM CD 180 MG CAPSULE PO SCH (08:35)
[2016-11-14] MEDS: THEOPHYLLINE ER 300 MG TABLET PO SCH ×2 (08:35→16:19)
[2016-11-14] MEDS: ASPIRIN CHEW 81 MG TABLET PO SCH (08:36)
[2016-11-14] MEDS: MAGNESIUM CHLORIDE 64 MG TABLET PO SCH (08:36)
[2016-11-14] MEDS: METOPROLOL TARTRATE 25 MG TABLET PO SCH ×2 (08:36→21:05)
[2016-11-14] MEDS: MONTELUKAST 10 MG TABLET PO SCH ×2 (08:36→21:05)
[2016-11-14] MEDS: IRON (CARBONYL) 45 MG TABLET PO SCH (08:36)
[2016-11-14] MEDS: ALBUTEROL 2 MG TABLET PO SCH ×2 (08:36→21:05)
[2016-11-14] MEDS: PANTOPRAZOLE 40 MG TABLET PO SCH (08:36)
[2016-11-14] MEDS: ALLOPURINOL 100 MG TABLET PO SCH (08:36)
[2016-11-14] MEDS: POTASSIUM CHLORIDE 10 MEQ TABLET PO SCH (08:37)
--- NOTE | 2016-11-14 09:02 | XRay Report ---
XR chest 2V Date: 11/14/2016 4:00 AM History: Pneumonia Comparison: 11/12/2016 Technique: PA and lateral chest Findings: The heart is minimally enlarged calculation aortic knob. Persistent diffuse parenchymal findings in the lower lung zones with small pleural effusions. Symmetric pleural scarring at the lung apices. Stable mediastinum. Osteopenia with degenerative changes. Prior cholecystectomy. Impression: Fairly stable atelectasis/infiltration/edema with small pleural effusions and underlying chronic scarring. PROCEDURE INTERPRETED AT [facility] DEPARTMENT OF RADIOLOGY Final Report Signed by: Dr. Sindhu George
--- NOTE | 2016-11-14 10:10 | Pulmonology Progress Note ---
Pulmonary - PN: Subj Interval history: Henri Pedro, ANP-BC, GNP-BC, acting as scribe for Dr. Geo Jimenez Mrs. Boo is a 76-year-old -[place] female who is admitted 11/06/2016 from [facility] for an acute right middle lobe and right lower lobe infiltrate and possible early lingular infiltrate compatible with pneumonia. Patient was seen today along with Jane Rosales RN. She was seen at [place]'s ER on 11/02/2016. Influenza a and B were both negative. The patient was treated prophylactically with Tamiflu 75 mg daily for 5 days. Her CXR is improving. She states her breathing has markedly improved. Sputum Gram stain showed many gram-positive cocci, few gram-negative rods, and few gram-positive rods. Sputum culture grew MRSA. Blood cultures were negative at day five. Urine cultures growing no organisms. Medications have been reviewed. We made no changes today. She continues on Solumedrol 20mg IV Q12H, Cleocin, and Merrem. Labs been reviewed. No new labs were drawn today. business services representative inquired about swing bed placement on discharge. The patient has been significantly ill and is too weak to care for herself at home at the present time. She was agreeable to swing bed placement and [facility]. A referral has been sent and we are awaiting response back. I 've informed her that if she cannot be accepted today then she will be here at least until Thursday. She is agreeable. She has a history of swallowing difficulties. She states her swallowing is doing okay, but asked about thickened liquids. I will order this. Exam (Progress Note) - Constitutional Vitals: Period Temp Pulse Resp BP Sys/Mayers Pulse Ox Last 24 Hr 97.6 F-98.7 F 60-79 18-22 133-145/57-72 96-100 Exam: Chest is wheeze free; still with mild loose LAW congestion Heart no gallop Abdomen is nontender and nondistended; bowel sounds are positive 4 Extremities with nothing to suggest acute deep venous femoral phlebitis Psychiatric oriented 3 Neurologic long-term motor function is intact Plan: Continue present treatment including Cleocin and Vancomycin for MRSA in sputum. Await swing bed decision. See orders. Results - Labs CBC & BMP: 11/14/16 05:24 11/14/16 05:24
[2016-11-14] MEDS: VANCOMYCIN INJ 1,000 MG in SODIUM CHLORIDE 0.9% 250 ML IV SCH (12:21)
[2016-11-14] MEDS: CLORAZEPATE 3.75 MG TABLET PO PRN (16:19)
[2016-11-15] MEDS: CLINDAMYCIN INJ 300 MG in PREMIX 1 EACH IV SCH ×4 (06:15→23:16)
[2016-11-15] MEDS: LEVOTHYROXINE 125 MCG TABLET PO SCH (06:15)
[2016-11-15] MEDS: ALBUTEROL/IPRATROPIUM 3 ML NEB RESP TX SCH ×4 (07:50→19:59)
[2016-11-15] MEDS: MONTELUKAST 10 MG TABLET PO SCH ×2 (09:04→20:23)
[2016-11-15] MEDS: IRON (CARBONYL) 45 MG TABLET PO SCH (09:04)
[2016-11-15] MEDS: METOPROLOL TARTRATE 25 MG TABLET PO SCH ×2 (09:04→20:23)
[2016-11-15] MEDS: ASPIRIN CHEW 81 MG TABLET PO SCH (09:04)
[2016-11-15] MEDS: PANTOPRAZOLE 40 MG TABLET PO SCH (09:04)
[2016-11-15] MEDS: ALLOPURINOL 100 MG TABLET PO SCH (09:04)
[2016-11-15] MEDS: POTASSIUM CHLORIDE 10 MEQ TABLET PO SCH (09:04)
[2016-11-15] MEDS: THEOPHYLLINE ER 300 MG TABLET PO SCH ×2 (09:04→17:05)
[2016-11-15] MEDS: MAGNESIUM CHLORIDE 64 MG TABLET PO SCH (09:04)
--- NOTE | 2016-11-15 09:07 | Pulmonology Progress Note ---
Pulmonary - PN: Subj Interval history: Patient is a 76-year-old black lady that came in with mild pneumonia. She has a history of asthma and hypertension and hypothyroidism. She feels like her breathing is doing okay and she is not wheezing too badly. She is tolerating her treatments. She says she had a fairly good night. Exam (Progress Note) - Constitutional Vitals: Period Temp Pulse Resp BP Sys/Mayers Pulse Ox Last 24 Hr 97.5 F-98.8 F 55-87 18-20 122-140/59-87 96-100 General appearance: normal weight, no acute distress - Head Head exam: Present: normal inspection, normocephalic - Eye Eye exam: Present: EOMI. Absent: scleral icterus Pupils: Present: MELBA - ENT ENT exam: Present: normal exam - Neck Neck exam: Present: normal inspection. Absent: lymphadenopathy, thyromegaly - Respiratory Respiratory exam: Present: rhonchi, other (She has pectus excavatum. She has fairly good breath sounds bilaterally). Absent: accessory muscle use, wheezes - Cardiovascular Cardiovascular exam: Present: regular rate and rhythm. Absent: gallop, systolic murmur - GI/Abdominal GI/Abdominal exam: Present: normal bowel sounds, soft. Absent: organomegaly, tenderness - Extremities Exam Extremities exam: Absent: calf tenderness, edema - Neurological Exam Neurological exam: Present: alert, oriented X3 - Psychiatric Psychiatric exam: Present: normal affect - Skin Skin exam: Present: warm, dry Results - Labs CBC & BMP: 11/14/16 05:24 11/14/16 05:24 Assessment and Plan (1) Right upper lobe pneumonia Status: Acute Assessment and plan: The patient has MRSA growing on sputum. She will continue with her antibiotics. She says she is feeling better. Current Visit: No (2) Chronic asthma Status: Acute Assessment and plan: She is getting respiratory therapy but she seemed to be breathing well Current Visit: No (3) Hypertension Status: Acute Assessment and plan: She will continue with her blood pressure medicines. Current Visit: No (4) GERD (gastroesophageal reflux disease) Status: Acute Assessment and plan: She will continue with antireflux measures. Current Visit: No
[2016-11-15] MEDS: DILTIAZEM CD 180 MG CAPSULE PO SCH (09:47)
[2016-11-15] MEDS: ALBUTEROL 2 MG TABLET PO SCH ×2 (09:47→20:23)
[2016-11-15] MEDS: VANCOMYCIN INJ 1,000 MG in SODIUM CHLORIDE 0.9% 250 ML IV SCH (11:16)
[2016-11-15] MEDS: methylPREDNISolone SOD SUC 40 MG/1 ML VIAL IV SCH ×2 (11:17→23:13)
[2016-11-16] MEDS: CLINDAMYCIN INJ 300 MG in PREMIX 1 EACH IV SCH ×4 (06:23→23:46)
[2016-11-16] MEDS: LEVOTHYROXINE 125 MCG TABLET PO SCH (06:23)
[2016-11-16] MEDS: ALBUTEROL/IPRATROPIUM 3 ML NEB RESP TX SCH ×4 (07:38→20:14)
[2016-11-16] MEDS: DILTIAZEM CD 180 MG CAPSULE PO SCH (08:59)
[2016-11-16] MEDS: THEOPHYLLINE ER 300 MG TABLET PO SCH ×2 (08:59→17:41)
[2016-11-16] MEDS: IRON (CARBONYL) 45 MG TABLET PO SCH (08:59)
[2016-11-16] MEDS: ALBUTEROL 2 MG TABLET PO SCH ×2 (08:59→20:51)
[2016-11-16] MEDS: MAGNESIUM CHLORIDE 64 MG TABLET PO SCH (08:59)
[2016-11-16] MEDS: METOPROLOL TARTRATE 25 MG TABLET PO SCH ×2 (08:59→20:51)
[2016-11-16] MEDS: MONTELUKAST 10 MG TABLET PO SCH ×2 (08:59→20:51)
[2016-11-16] MEDS: ASPIRIN CHEW 81 MG TABLET PO SCH (09:00)
[2016-11-16] MEDS: PANTOPRAZOLE 40 MG TABLET PO SCH (09:00)
[2016-11-16] MEDS: ALLOPURINOL 100 MG TABLET PO SCH (09:00)
[2016-11-16] MEDS: POTASSIUM CHLORIDE 10 MEQ TABLET PO SCH (09:00)
--- NOTE | 2016-11-16 10:47 | Pulmonology Progress Note ---
Pulmonary - PN: Subj Interval history: Patient is a 76-year-old black lady that came in with mild pneumonia. She has a history of asthma and hypertension and hypothyroidism. She feels like her breathing is doing okay and she is not wheezing too badly. She is tolerating her treatments. She says she had a fairly good night. Today she is sitting up eating breakfast and says she feels much better. She still has a mild cough but overall her breathing is improving. Exam (Progress Note) - Constitutional Vitals: Period Temp Pulse Resp BP Sys/Mayers Pulse Ox Last 24 Hr 97.6 F-99 F 57-89 16-20 123-165/55-74 95-100 Exam: General appearance: normal weight, no acute distress, she looks comfortable sitting up in bed today. - Head Head exam: Present: normal inspection, normocephalic - Eye Eye exam: Present: EOMI. Absent: scleral icterus Pupils: Present: MELBA - ENT ENT exam: Present: normal exam - Neck Neck exam: Present: normal inspection. Absent: lymphadenopathy, thyromegaly - Respiratory Respiratory exam: Present: rhonchi, she has some mild crackles in the bases. other (She has pectus excavatum. She has fairly good breath sounds bilaterally) . Absent: accessory muscle use, wheezes - Cardiovascular Cardiovascular exam: Present: regular rate and rhythm. Absent: gallop, systolic murmur - GI/Abdominal GI/Abdominal exam: Present: normal bowel sounds, soft. Absent: organomegaly, tenderness - Extremities Exam Extremities exam: Absent: calf tenderness, edema - Neurological Exam Neurological exam: Present: alert, oriented X3, no focal deficits. - Psychiatric Psychiatric exam: Present: normal affect - Skin Skin exam: Present: warm, dry Results - Labs CBC & BMP: 11/14/16 05:24 11/14/16 05:24 Assessment and Plan (1) Right upper lobe pneumonia Status: Acute Assessment and plan: The patient has MRSA growing on sputum. She will continue with her antibiotics. She says she is feeling better. She feels like her breathing is better Current Visit: No (2) Chronic asthma Status: Acute Assessment and plan: She is getting respiratory therapy but she seemed to be breathing well. She is not really having any wheezing at present. Current Visit: No (3) Hypertension Status: Acute Assessment and plan: She will continue with her blood pressure medicines. Current Visit: No (4) GERD (gastroesophageal reflux disease) Status: Acute Assessment and plan: She will continue with antireflux measures. Current Visit: No
[2016-11-16] MEDS: methylPREDNISolone SOD SUC 40 MG/1 ML VIAL IV SCH ×2 (11:23→23:43)
[2016-11-16] MEDS: VANCOMYCIN INJ 1,000 MG in SODIUM CHLORIDE 0.9% 250 ML IV SCH (12:02)
[2016-11-17] MEDS: CLINDAMYCIN INJ 300 MG in PREMIX 1 EACH IV SCH ×3 (05:33→23:47)
[2016-11-17] MEDS: LEVOTHYROXINE 125 MCG TABLET PO SCH (05:59)
[2016-11-17] MEDS: ALBUTEROL/IPRATROPIUM 3 ML NEB RESP TX SCH ×4 (07:40→19:24)
[2016-11-17] MEDS: METOPROLOL TARTRATE 25 MG TABLET PO SCH ×2 (09:52→20:40)
[2016-11-17] MEDS: MAGNESIUM CHLORIDE 64 MG TABLET PO SCH (09:52)
[2016-11-17] MEDS: IRON (CARBONYL) 45 MG TABLET PO SCH (09:52)
[2016-11-17] MEDS: ALLOPURINOL 100 MG TABLET PO SCH (09:52)
[2016-11-17] MEDS: THEOPHYLLINE ER 300 MG TABLET PO SCH ×2 (09:52→17:04)
[2016-11-17] MEDS: PANTOPRAZOLE 40 MG TABLET PO SCH (09:52)
[2016-11-17] MEDS: ASPIRIN CHEW 81 MG TABLET PO SCH (09:53)
[2016-11-17] MEDS: MONTELUKAST 10 MG TABLET PO SCH ×2 (09:53→20:40)
[2016-11-17] MEDS: POTASSIUM CHLORIDE 10 MEQ TABLET PO SCH (09:53)
[2016-11-17] MEDS: DILTIAZEM CD 180 MG CAPSULE PO SCH (09:55)
[2016-11-17] MEDS: ALBUTEROL 2 MG TABLET PO SCH ×2 (09:59→20:40)
--- NOTE | 2016-11-17 09:59 | XRay Report ---
History: Pneumonia Date: 11/17/2016 Study: Chest x-ray PA and lateral Comparison exam: 11/14/2016 There is continued cardiomegaly. The mediastinal contours are unchanged. The pulmonary vasculature is not engorged. There is persistent but improving mild hazy right lower lung infiltrate on the current exam. There is persistent but improving platelike atelectasis in the right lower lobe. Platelike scar and/or atelectasis in the left lower lobe is noted as before. There is no interval worsening. The osseous structures are unchanged. Impression: Mildly improved right basilar pneumonia and atelectasis compared to the previous study PROCEDURE INTERPRETED AT [facility] DEPARTMENT OF RADIOLOGY Final Report Signed by: Dr. Cady Linda
--- NOTE | 2016-11-17 10:22 | Pulmonology Progress Note ---
Pulmonary - PN: Subj Interval history: Henri Pedro, ANP-BC, GNP-BC, acting as scribe for Dr. Geo Jimenez Mrs. Boo is a 76-year-old -Sudanese female who is admitted 11/06/2016 from [facility] for an acute right middle lobe and right lower lobe infiltrate and possible early lingular infiltrate compatible with pneumonia. Patient was seen today along with Brii Garcia RN. She was seen at [place]'s ER on 11/02/2016. Influenza a and B were both negative. The patient was treated prophylactically with Tamiflu 75 mg daily for 5 days. She has done well since without any complaints of body aches. Her CXR is improving. She states her breathing has markedly improved. Today's CXR is pending. Sputum Gram stain showed many gram-positive cocci, few gram-negative rods, and few gram-positive rods. Sputum culture grew MRSA. She has been on Cleocin and Vancomycin. At discharge, she will continue Cleocin for a few more days. She will not require Vancomycin on discharge. 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 She has been seen previously from a GI standpoint by Dr. Bullard and more recently by Dr. Ramos. In the past she refused PEG tube placement. Last week I asked for thickened liquids on her trays, and I'm unsure if this is being done. We will ask speech therapy to see her today for any more recommendations they may have. Blood cultures were negative at day five. Urine cultures grew no organisms. Medications have been reviewed. We made no changes today. She continues on Solumedrol 20mg IV Q12H, Cleocin, and Vancomycin. Pharmacology is managing the Vancomycin. Note, she has not had a trough level since 11/12/16 and at that time it was 13.3. Labs been reviewed. No new labs were drawn today. account services analyst inquired about swing bed placement on discharge. The patient has been significantly ill and is too weak to care for herself at home at the present time. She was agreeable to swing bed placement and has requested [facility] swing bed. A referral has been sent and we are awaiting response back. I 've been told today that we are awaiting her insurance to approve placement. Exam (Progress Note) - Constitutional Vitals: Period Temp Pulse Resp BP Sys/Mayers Pulse Ox Last 24 Hr 97.5 F-99.2 F 55-89 18-20 130-156/59-72 95-100 Exam: Chest is wheeze free; still with mild loose LAW congestion Heart no gallop Abdomen is nontender and nondistended; bowel sounds are positive 4 Extremities with nothing to suggest acute deep venous thrombophlebitis Psychiatric oriented 3 Neurologic long-term motor function is intact Plan: Continue present treatment including Cleocin and Vancomycin for MRSA in sputum. Await swing bed decision. Speech therapy consult today for evaluation and treatment. See orders. Results - Labs CBC & BMP: 11/14/16 05:24 11/14/16 05:24
[2016-11-17] MEDS: methylPREDNISolone SOD SUC 40 MG/1 ML VIAL IV SCH ×2 (12:08→23:47)
[2016-11-17] MEDS: VANCOMYCIN INJ 1,000 MG in SODIUM CHLORIDE 0.9% 250 ML IV SCH (15:43)
[2016-11-18] MEDS: LEVOTHYROXINE 125 MCG TABLET PO SCH (06:56)
[2016-11-18] MEDS: CLINDAMYCIN INJ 300 MG in PREMIX 1 EACH IV SCH ×2 (06:56→14:30)
[2016-11-18] MEDS: ALBUTEROL/IPRATROPIUM 3 ML NEB RESP TX SCH ×2 (07:46→11:22)
--- NOTE | 2016-11-18 09:39 | Pulmonology Progress Note ---
Pulmonary - PN: Subj Interval history: Henri Pedro, ANP-BC, GNP-BC, acting as scribe for Dr. Geo Jimenez Mrs. Boo was seen today along with her daughter and Brii Garcia RN. Mrs. Boo has been accepted by [facility] swing bed today. She states that her breathing is markedly improved since admission. She no longer has a productive cough. At discharge, we will continue Cleocin and Doxycycline for another 10 days. She was seen by speech therapy yesterday. It has been recommended that she has nectar consistency liquids. CXR yesterday showed a faint amount of infiltrate on the right. It is lagging behind her clinical improvement. Medications have been reviewed. Labs have been reviewed. No new labs were drawn today. Exam (Progress Note) - Constitutional Vitals: Period Temp Pulse Resp BP Sys/Mayers Pulse Ox Last 24 Hr 97.8 F-98.5 F 52-83 16-20 127-153/52-73 96-100 Exam: Chest is wheeze free; still with mild loose LAW congestion Heart no gallop Abdomen is nontender and nondistended; bowel sounds are positive 4 Extremities with nothing to suggest acute deep venous thrombophlebitis Psychiatric oriented 3 Neurologic long-term motor function is intact Plan: [facility] Please see the discharge summary for more information. Results - Labs CBC & BMP: 11/14/16 05:24 11/14/16 05:24 Specialty Discharge - Follow Up or Referrals
--- NOTE | 2016-11-18 09:40 | Discharge Summary ---
Hospital Course - Hospital Course Hospital Course: Henri Pedro, ANP-BC, GNP-BC, acting as scribe for Dr. Geo Jimenez Mrs. Boo is a 76-year-old -[place] female who is admitted 11/06/2016 [facility] for an acute right middle lobe and right lower lobe infiltrate and possible early lingular infiltrate compatible with pneumonia. Sputum Gram stain showed many gram-positive cocci, few gram-negative rods, and few gram-positive rods. Sputum culture grew MRSA. She has been on Cleocin and Vancomycin. At discharge, she will continue Cleocin and doxycycline for 10 more days. Cleocin has an REGINALDO of less than 0.5 and tetracycline has an REGINALDO of less than 4. She was seen at [facility] on 11/02/2016 (prior to admission). Influenza A and B were both negative. The patient was treated prophylactically with Tamiflu 75 mg daily for 5 days. She has done well since without any complaints of body aches. Her CXR is improving. Chest x-ray done 11/18/2016 continues to show a faint infiltrate on the right, but this is lagging behind clinical improvement. 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 She has been seen previously from a GI standpoint by Dr. Bullard and more recently by Dr. Ramos. In the past she refused PEG tube placement. She was seen in consultation by speech therapy and it was recommended that the patient have nectar consistency liquids. Blood cultures grew no organisms. Urine culture grew no organisms. Cold agglutinins were negative at 1:8. Legionella was negative. The patient has been accepted in transfer to swing bed today. She has been severely and acutely ill and will benefit from continued physical therapy efforts prior to discharge to her home. At discharge, white count is 12,000 with 81.9% segs, 8.1% lymphs, and 3.5% monos ; H&H 10.0/30.4 with normal indices and top normal red blood cell distribution width; platelet count 256,000; creatinine 1.00, BUN 40, sodium 146, potassium 4.9, magnesium 2.1; liver function tests within normal limits; calcium 9.1, albumin 3.4, total protein 6.3; BNP 6; TSH was elevated at 5.990 but free T4 was normal at 1.10; theophylline level on 11/06/2016 was 17.9; urinalysis showed no evidence of infection. For more information regarding Mrs. Boo's past medical history, surgical history, social history, family history, past procedures, admit labs, admit x- rays and admit exam, please see the admission note dated 11/06/2016. Impression: #1 Acute right middle and right lower lobe infiltrate with possible early lingular infiltrate compatible with pneumonia and secondary to MRSA; improved #2 Acute bronchitis with acute bronchospasm #3 GERD #4 Asthma #5 Mild cardiomegaly #6 Hypothyroidism #7 DJD #8 See past history Plan: Cleocin 300 mg p.o. 3 times daily 10 days, Doxycycline 100 mg p.o. twice daily 10 days, albuterol 2 mg p.o. twice daily, allopurinol 100 mg p.o. daily, Tranxene 3.75 mg p.o. 3 times daily as needed, Tessalon 200 mg p.o. twice daily as needed cough, chewable aspirin 81 mg p.o. daily, Colace 200 mg p.o. daily as needed, diltiazem ER 360 mg p.o. daily, Synthroid 125 g p.o. daily, Feosol 45 mg p.o. daily, Brio elliptical 100/25 g 1 inhalation daily, metoprolol tartrate 25 mg p.o. twice daily, Slow-Mag 64 mg p.o. daily, Claritin 10 mg p.o. daily, Prilosec 40 mg p.o. twice daily before meals, Singulair 10 mg p.o. twice daily, theophylline 300 mg p.o. twice daily with meals, K-Dur 10 mEq p.o. daily , Mucinex 600 mg p.o. twice daily, Dyazide 1 capsule p.o. twice daily as needed , DuoNeb's 4 times daily and as needed, and prednisone 20 mg p.o. daily for 10 days then 10 mg p.o. daily until her follow-up appointment at our clinic. She has been scheduled to see in Ema Marshall, nurse practitioner, in approximately 2 months with a CBC, BMP, and chest x-ray. She can be seen sooner as needed. Specialty Discharge - Follow Up or Referrals Follow up with: Ema Marshall CFNP [Advanced Practice Nurse] - (Two months with CBC, BMP, and CXR ) Discharge Plan - Discharge Data Disposition: Swing Bed, Hos Based, [facility] Condition at Discharge: Stable - Discharge Medications New Albuterol/Ipratropium Neb [Duoneb] 3 ml RESP TX RT QID Albuterol/Ipratropium Neb [Duoneb] 3 ml RESP TX RT Q4H PRN #0 PRN Reason: Shortness Of Breath/Wheezing Benzonatate [Tessalon] 200 mg PO TID PRN #0 capsule PRN Reason: Cough Clorazepate [Tranxene] 3.75 mg PO TID PRN #0 tablet PRN Reason: Anxiety Docusate Sodium Cap [Colace Cap] 100 mg PO BID PRN #0 capsule PRN Reason: Constipation Doxycycline Hyclate 100 mg PO BID #20 tablet Clindamycin Cap [Cleocin Cap] 300 mg PO Q8HR #30 capsule Montelukast Tab [Singulair Tab] 10 mg PO BID tablet Continue Omeprazole [Prilosec] 40 mg PO BIDAC Theophylline ER Tab 300 mg PO BID W/MEALS Clorazepate Dipotassium 3.75 mg PO TID PRN PRN Reason: Anxiety Diltiazem HCl [Diltiazem ER (24 hr)] 360 mg PO DAILY Triamterene/Hydrochlorothiazid [Triamterene-Hctz 37.5-25 mg Cp] 1 each PO BID PRN PRN Reason: Edema Metoprolol Tartrate 25 mg PO BID Loratadine [Claritin] 10 mg PO DAILY Fluticasone/Vilanterol [Breo Ellipta 100-25 Mcg INH] 1 puff INH DAILY Allopurinol [Zyloprim] 100 mg PO DAILY #30 tablet Aspirin Chew Tab 81 mg PO DAILY tablet Benzonatate [Tessalon] 200 mg PO BID PRN #60 capsule PRN Reason: Cough Docusate Sodium Cap [Colace Cap] 200 mg PO DAILY PRN #0 capsule PRN Reason: Constipation Magnesium Chloride [Slow Mag] 64 mg PO DAILY #60 tablet Iron (Carbonyl) [Feosol Natural Release Tab] 45 mg PO DAILY Albuterol Tab [Proventil Tab] 2 mg PO BID Potassium Chloride 10 meq PO DAILY Changed predniSONE TAB [PredniSONE] 10 mg PO DIRECTED #60 tablet Discontinued Montelukast Tab [Singulair Tab] 10 mg PO DAILY Levothyroxine Tab [Synthroid Tab] 125 mcg PO DAILY Oseltamivir Cap [Tamiflu Cap] 75 mg PO DAILY #10 capsule - Follow Up or Referral - Forms/Instructions Instructions: Asthma (DC), Pneumonia (DC) Exam - Constitutional Vitals: Period Temp Pulse Resp BP Sys/Mayers Pulse Ox Last 24 Hr 97.8 F-98.5 F 52-83 16-20 127-153/52-73 96-100 DS: Provider Date of admission: 11/06/16 11:48 Primary care physician: Geo Jimenez MD Attending physician on admission: Geo Jimenez MD Consults: 11/06/16 12:40 Consult to Physical Therapy [CONS] Routine Reason for Physical Therapy: Evaluate and Treat 11/06/16 12:46 Consult to Pharmacy [CONS] Routine Reason for Pharmacy Consult: Adjust Meds Renal Funct 11/09/16 11:06 Consult to Pharmacy [CONS] Routine Reason for Pharmacy Consult: Dose/Manage Vancomycin Discharging clinician: NAI Monzon
[2016-11-18] MEDS: THEOPHYLLINE ER 300 MG TABLET PO SCH (09:44)
[2016-11-18] MEDS: DILTIAZEM CD 180 MG CAPSULE PO SCH (09:45)
[2016-11-18] MEDS: ALLOPURINOL 100 MG TABLET PO SCH (09:47)
[2016-11-18] MEDS: PANTOPRAZOLE 40 MG TABLET PO SCH (09:47)
[2016-11-18] MEDS: ALBUTEROL 2 MG TABLET PO SCH (09:47)
[2016-11-18] MEDS: MAGNESIUM CHLORIDE 64 MG TABLET PO SCH (09:47)
[2016-11-18] MEDS: IRON (CARBONYL) 45 MG TABLET PO SCH (09:47)
[2016-11-18] MEDS: POTASSIUM CHLORIDE 10 MEQ TABLET PO SCH (09:47)
[2016-11-18] MEDS: MONTELUKAST 10 MG TABLET PO SCH (09:47)
[2016-11-18] MEDS: ASPIRIN CHEW 81 MG TABLET PO SCH (09:47)
[2016-11-18] MEDS: METOPROLOL TARTRATE 25 MG TABLET PO SCH (09:47)
[2016-11-18 12:20] VITALS: BP 137/58
[2016-11-18] MEDS: methylPREDNISolone SOD SUC 40 MG/1 ML VIAL IV SCH (14:30)
== END 2016-11-18 12:30 | disposition swing bed (61) | DRG 179 ==
LOC: N.5E 11:36
PROVIDERS: ADMIT Internal Medicine Pulmonary Disease; ATTEND Internal Medicine Pulmonary Disease

== ENCOUNTER 2017-07-21 06:23 | Observation (INO) ==
[2017-07-21] MEDS ORDERED: ENOXAPARIN 100 MG/ML SYRINGE SUBCUT STA (06:40)
[2017-07-21] MEDS ORDERED: ONDANSETRON 4 MG/2 ML VIAL IV STA (06:40)
[2017-07-21] MEDS ORDERED: ASPIRIN 325 MG TABLET PO STA (06:40)
[2017-07-21] MEDS ORDERED: ALUM/MAG/SIMETH/LIDO VISC 1:1 30 ML BOTTLE PO STA (06:40)
[2017-07-21 06:48] LABS: Basophils % 0.3 % (0.0-0.8); Eosinophils # 0.1 10*3/uL (0.0-0.87); Eosinophils % 1.3 % (0.00-10.9); Hematocrit 33.4 VOL% (35.7-47.0); Hemoglobin 11.1 GM/DL (12.0-16.0); Immature Granulocytes % 0.4 %; Immature Granulocytes Absolute 0.04 #; Lymphocytes # 2.2 10*3/uL (1.4-4.0); Lymphocytes % 24.4 % (21.3-54.2); Mean Corpuscular HGB Conc 33.2 GM/DL (32-36); Mean Corpuscular Hemoglobin 31 PG (27-34); Mean Corpuscular Volume 94.6 FL (87-102); Mean Platelet Volume 10.3 FL (9.6-12.0); Monocytes # 0.7 10*3/uL (0.11-0.8); Neutrophils # 5.9 10*3/uL (1.4-7.4); Neutrophils % 65.6 % (38.7-73.9); Platelet Count 186 T/CUMM (130-400); Red Blood Count 3.53 MC/CUMM (3.8-5.5); Red Cell Distribution Width 14.3 % (9.3-17.3)
[2017-07-21 06:52] LABS: INR 0.9; PT Patient Result 9.7 SECS; Partial Thromboplastin Time 27.3 SECS (0-40)
[2017-07-21] MEDS ORDERED: ENOXAPARIN 80 MG/0.8 ML SYRINGE SUBCUT ONE (07:02)
[2017-07-21] MEDS ORDERED: ALUM/MAG/SIMETH/LIDO VISC 1:1 30 ML BOTTLE PO ONE (07:02)
[2017-07-21] MEDS ORDERED: ONDANSETRON 4 MG/2 ML VIAL ONE (07:02)
[2017-07-21] MEDS ORDERED: ASPIRIN 325 MG TABLET ONE (07:02)
[2017-07-21 07:26] LABS: Albumin 3.1 G/DL (3.4-5.0); Bilirubin,Total 0.5 MG/DL (0.2-1.0); Osmolality,Calculated 288.8 MOS/KG (273-304); Potassium 3.9 MMOL/L (3.5-5.1); Total Protein 5.7 G/DL (6.4-8.3)
[2017-07-21] MEDS ORDERED: ONDANSETRON 4 MG/2 ML VIAL IV PRN (09:01)
[2017-07-21] MEDS ORDERED: ALBUTEROL/IPRATROPIUM 3 ML NEB RESP TX PRN (17:21)
[2017-07-21] MEDS ORDERED: CLORAZEPATE 3.75 MG TABLET PO PRN (17:21)
[2017-07-21] MEDS ORDERED: ALREX BOTH EYES PRN (17:28)
[2017-07-21] MEDS ORDERED: ALBUTEROL 2.5 MG/3 ML NEB RESP TX PRN (17:28)
[2017-07-21] MEDS: ALBUTEROL 2 MG TABLET PO SCH (21:15)
[2017-07-21] MEDS: METOPROLOL TARTRATE 25 MG TABLET PO SCH (21:15)
[2017-07-21] MEDS: cycloSPORINE OPH EMUL 1 VIAL BOTH EYES SCH (21:15)
[2017-07-21 23:50] LABS: Apearance,Urine CLEAR (Clear); Bilirubin,Urine Negative (Negative); Blood, Urine Negative (Negative); Glucose,Urine (UA) Negative (Negative); Ketones,Urine Negative (Negative); Mucus,Urine Occasional /LPF (Occasional); Nitrite,Urine Negative (Negative); Protein,Urine Negative; RBC,Urine <1 /HPF (0-4); Renal Epithelial Cells,Urine Occasional /HPF (<1); Squamous Epithelial Cell,Urine Occasional /HPF (0-10); Urine Color Yellow (Yellow); Urine Specific Gravity 1.011 (1.001-1.035); Urine Urobilinogen < 2.0 EU/DL (0.2-1.0); WBC,Urine 1 /HPF (0-6)
[2017-07-22 05:56] LABS: Basophils # 0.1 10*3/uL (0.0-0.2); Basophils % 0.9 % (0.0-0.8); Eosinophils # 0.1 10*3/uL (0.0-0.87); Eosinophils % 2.2 % (0.00-10.9); Hemoglobin 11.1 GM/DL (12.0-16.0); Immature Granulocytes % 0.4 %; Immature Granulocytes Absolute 0.02 #; Lymphocytes # 2.6 10*3/uL (1.4-4.0); Lymphocytes % 46.7 % (21.3-54.2); Mean Corpuscular HGB Conc 32.6 GM/DL (32-36); Mean Corpuscular Hemoglobin 31 PG (27-34); Mean Corpuscular Volume 95.8 FL (87-102); Mean Platelet Volume 10.8 FL (9.6-12.0); Monocytes # 0.4 10*3/uL (0.11-0.8); Monocytes % 7.7 % (1.7-12.7); Neutrophils # 2.3 10*3/uL (1.4-7.4); Neutrophils % 42.1 % (38.7-73.9); Platelet Count 174 T/CUMM (130-400); Red Blood Count 3.55 MC/CUMM (3.8-5.5); Red Cell Distribution Width 14.2 % (9.3-17.3); White Blood Count 5.6 T/CUMM (4-12)
[2017-07-22] MEDS ORDERED: LEVOTHYROXINE 125 MCG TABLET PO SCH (06:30)
[2017-07-22 06:45] LABS: CKMB % 11.9 %; Troponin I Only < 0.015 NG/ML (0.00-0.045)
[2017-07-22 07:01] LABS: Osmolality,Calculated 288.7 MOS/KG (273-304); Thyroid Stimulating Hormone 0.328 uIU/ml (0.358-3.74)
[2017-07-22] MEDS ORDERED: POTASSIUM CHLORIDE 10 MEQ TABLET PO SCH (09:00)
[2017-07-22] MEDS ORDERED: ASPIRIN CHEW 81 MG TABLET PO SCH (09:00)
[2017-07-22] MEDS ORDERED: FERROUS SULFATE 325 MG TABLET PO SCH (09:00)
[2017-07-22] MEDS ORDERED: NON-FORMULARY MEDICATION (Fluticasone/Vilanterol [Breo Ellipta 100-25 Mcg Inh] 1 PUFF) INH SCH (09:00)
[2017-07-22] MEDS ORDERED: DILTIAZEM CD 240 MG CAPSULE PO SCH (09:00)
[2017-07-22] MEDS ORDERED: MONTELUKAST 10 MG TABLET PO SCH (09:00)
[2017-07-22] MEDS ORDERED: PANTOPRAZOLE 40 MG TABLET PO SCH (09:00)
[2017-07-22] MEDS ORDERED: MAGNESIUM CHLORIDE 64 MG TABLET PO SCH (09:00)
[2017-07-22] MEDS ORDERED: THEOPHYLLINE ER 300 MG TABLET PO SCH (09:00)
[2017-07-22] MEDS: METOPROLOL TARTRATE 25 MG TABLET PO SCH (09:51)
[2017-07-22] MEDS: ALBUTEROL 2 MG TABLET PO SCH (09:51)
[2017-07-22] MEDS: cycloSPORINE OPH EMUL 1 VIAL BOTH EYES SCH (09:52)
[2017-07-22 12:26] VITALS: BP 128/70
[2017-07-22] MEDS ORDERED: DICLOFENAC 1% GEL 100 GM TUBE TOP SCH (13:00)
== END 2017-07-22 13:30 | disposition home or self-care (01) ==
LOC: N.EDINP 06:23 → N.ED 06:23 → N.EDINP 09:55 → N.2E 10:08
PROVIDERS: ADMIT Internal Medicine; ATTEND Internal Medicine

== ENCOUNTER 2018-07-31 16:32 | Inpatient (IN) ==
[2018-07-31 17:17] LABS: Basophils # 0.1 10*3/uL (0.0-0.2); Basophils % 0.4 % (0.0-0.8); Hemoglobin 11.1 GM/DL (12.0-16.0); Immature Granulocytes % 0.4 %; Immature Granulocytes Absolute 0.05 #; Lymphocytes % 16.2 % (21.3-54.2); Mean Corpuscular HGB Conc 31.7 GM/DL (32-36); Mean Corpuscular Hemoglobin 30 PG (27-34); Mean Corpuscular Volume 95.6 FL (87-102); Mean Platelet Volume 10.2 FL (9.6-12.0); Monocytes # 0.7 10*3/uL (0.11-0.8); Monocytes % 5.4 % (1.7-12.7); Neutrophils # 9.3 10*3/uL (1.4-7.4); Neutrophils % 77.6 % (38.7-73.9); Platelet Count 217 T/CUMM (130-400); Red Blood Count 3.66 MC/CUMM (3.8-5.5); Red Cell Distribution Width 14.2 % (9.3-17.3)
[2018-07-31 17:40] LABS: Albumin 3.4 G/DL (3.4-5.0); Bilirubin,Total 0.4 MG/DL (0.2-1.0); Calcium 9.8 MG/DL (8.5-10.1); Lactic Acid 1.7 MMOL/L (0.4-2.0); Osmolality,Calculated 285.1 MOS/KG (273-304); Potassium 4.1 MMOL/L (3.5-5.1)
[2018-07-31 17:50] LABS: Apearance,Urine CLEAR (Clear); Bilirubin,Urine Negative (Negative); Blood, Urine Negative (Negative); Glucose,Urine (UA) Negative (Negative); Ketones,Urine Negative (Negative); Mucus,Urine Occasional /LPF (Occasional); Nitrite,Urine Negative (Negative); Protein,Urine Negative; RBC,Urine <1 /HPF (0-4); Squamous Epithelial Cell,Urine Occasional /HPF (0-10); Urine Color Yellow (Yellow); Urine Urobilinogen < 2.0 EU/DL (0.2-1.0); WBC,Urine 1 /HPF (0-6)
[2018-07-31] MEDS ORDERED: IBUPROFEN 600 MG TABLET PO STA (18:05)
[2018-07-31] MEDS ORDERED: IBUPROFEN 100 MG/5 ML UDCUP ONE (18:16)
[2018-07-31] MEDS ORDERED: LEVOFLOXACIN INJ 500 MG in PREMIX 1 EACH IV STA (18:37)
[2018-07-31] MEDS ORDERED: methylPREDNISolone SOD SUC 125 MG/2 ML VIAL IV STA (18:38)
[2018-07-31] MEDS ORDERED: ALBUTEROL/IPRATROPIUM 3 ML NEB RESP TX STA (18:39)
[2018-07-31] MEDS ORDERED: CLORAZEPATE 3.75 MG TABLET PO PRN (21:30)
[2018-07-31] MEDS ORDERED: TRIAMTERENE/HCTZ 37.5-25 MG CAPSULE PO PRN (21:30)
[2018-07-31] MEDS ORDERED: CARBOXYMETHYLCELLULOSE 1% OPH SOLN BOTH EYES PRN (21:30)
[2018-07-31] MEDS ORDERED: guaiFENesin/DM ER 600-30 MG TABLET PO PRN (21:30)
[2018-07-31] MEDS ORDERED: IBUPROFEN 600 MG TABLET PO PRN (21:30)
[2018-07-31] MEDS ORDERED: MICONAZOLE 2% CREAM 57 GM TUBE TOP PRN (21:30)
[2018-07-31] MEDS ORDERED: ONDANSETRON 4 MG/2 ML VIAL IV PRN (21:30)
[2018-07-31] MEDS: cefTRIAXone 1,000 MG in SYRINGE 1 EACH IV SCH (22:15)
[2018-07-31 22:21] LABS: Hemoglobin A1C 5.5 % (4.2-6.3); Theophylline 9.4 UG/ML (10-20)
[2018-07-31 22:26] LABS: Thyroid Stimulating Hormone 0.129 uIU/ml (0.358-3.74); Troponin I 0.027 NG/ML (0.00-0.045)
[2018-07-31] MEDS: METOPROLOL TARTRATE 50 MG TABLET PO SCH (22:28)
[2018-07-31] MEDS: FAMOTIDINE 20 MG TABLET PO SCH (22:28)
[2018-07-31] MEDS: ENOXAPARIN 40 MG/0.4 ML SYRINGE SUBCUT SCH (22:33)
[2018-07-31] MEDS: AZITHROMYCIN INJ 500 MG in SODIUM CHLORIDE 0.9% 250 ML IV SCH (23:55)
[2018-07-31] MEDS: THEOPHYLLINE ER 300 MG TABLET PO SCH (23:59)
[2018-08-01] MEDS: prednisoLONE ACETATE 1% OPH SUSP 5 ML BOTTLE LEFT EYE SCH ×5 (00:01→23:10)
[2018-08-01] MEDS: cycloSPORINE OPH EMUL 1 VIAL BOTH EYES SCH ×3 (00:02→23:19)
[2018-08-01] MEDS: ALBUTEROL/IPRATROPIUM 3 ML NEB RESP TX SCH ×4 (00:41→19:22)
[2018-08-01] MEDS ORDERED: methylPREDNISolone SOD SUC 40 MG/1 ML VIAL IV SCH (03:00)
[2018-08-01 06:13] LABS: Basophils % 0.2 % (0.0-0.8); Hemoglobin 10.4 GM/DL (12.0-16.0); Immature Granulocytes % 0.5 %; Immature Granulocytes Absolute 0.09 #; Lymphocytes % 11.4 % (21.3-54.2); Mean Corpuscular HGB Conc 31.5 GM/DL (32-36); Mean Corpuscular Hemoglobin 30 PG (27-34); Mean Corpuscular Volume 95.4 FL (87-102); Mean Platelet Volume 10.8 FL (9.6-12.0); Monocytes # 0.2 10*3/uL (0.11-0.8); Neutrophils # 14.8 10*3/uL (1.4-7.4); Neutrophils % 86.9 % (38.7-73.9); Platelet Count 193 T/CUMM (130-400); Red Blood Count 3.46 MC/CUMM (3.8-5.5); Red Cell Distribution Width 14.3 % (9.3-17.3); White Blood Count 17.1 T/CUMM (4-12)
[2018-08-01] MEDS: LEVOTHYROXINE 112 MCG TABLET PO SCH (06:35)
[2018-08-01 06:38] LABS: Alanine Aminotransferase 15 U/L (13-56); Albumin 2.8 G/DL (3.4-5.0); Alkaline Phosphatase 50 U/L (45-117); Aspartate Amino Transferase 26 U/L (0-37); Blood Urea Nitrogen 22 MG/DL (7-18); Calcium 9.1 MG/DL (8.5-10.1); Cholesterol 170 MG/DL (50-200); Glucose 133 MG/DL (74-106); HDL Cholesterol 70 MG/DL (40-60); Osmolality,Calculated 285.3 MOS/KG (273-304); Potassium 4.3 MMOL/L (3.5-5.1); Risk Ratio 2.43; Sodium 141 MMOL/L (136-145); Total Protein 6.5 G/DL (6.4-8.3); Triglycerides 54 MG/DL (2-150); Troponin I < 0.015 NG/ML (0.00-0.045); VLDL CHOLESTEROL 10.8 MG/DL
[2018-08-01] MEDS: ALLOPURINOL 100 MG TABLET PO SCH (08:39)
[2018-08-01] MEDS: PANTOPRAZOLE 40 MG TABLET PO SCH (08:39)
[2018-08-01] MEDS: ALBUTEROL 2 MG TABLET PO SCH ×3 (08:39→23:09)
[2018-08-01] MEDS: MAGNESIUM CHLORIDE 64 MG TABLET PO SCH (08:39)
[2018-08-01] MEDS: CHOLECALCIFEROL 400 UNIT TABLET PO SCH (08:39)
[2018-08-01] MEDS: FAMOTIDINE 20 MG TABLET PO SCH ×2 (08:39→23:10)
[2018-08-01] MEDS: MONTELUKAST 10 MG TABLET PO SCH (08:40)
[2018-08-01] MEDS: amLODIPine 5 MG TABLET PO SCH (08:40)
[2018-08-01] MEDS: ASPIRIN EC 81 MG TABLET PO SCH (08:40)
[2018-08-01] MEDS: FERROUS SULFATE 325 MG TABLET PO SCH (08:40)
[2018-08-01] MEDS: METOPROLOL TARTRATE 50 MG TABLET PO SCH ×2 (08:40→23:09)
[2018-08-01] MEDS: THEOPHYLLINE ER 300 MG TABLET PO SCH ×2 (08:41→16:34)
[2018-08-01] MEDS ORDERED: NON-FORMULARY MEDICATION (Fluticasone/Vilanterol [Breo Ellipta 100-25 Mcg Inh] 1 PUFF) INH SCH (09:00)
[2018-08-01] MEDS ORDERED: BISACODYL 10 MG SUPP RECTAL PRN (14:36)
[2018-08-01] MEDS: POLYETHYLENE GLYCOL POWDER 17 GM PACK PO SCH (14:56)
[2018-08-01] MEDS: methylPREDNISolone SOD SUC 40 MG/1 ML VIAL IV SCH (14:56)
[2018-08-01] MEDS: cefTRIAXone 1,000 MG in SYRINGE 1 EACH IV SCH (22:55)
[2018-08-01] MEDS: AZITHROMYCIN INJ 500 MG in SODIUM CHLORIDE 0.9% 250 ML IV SCH (23:05)
[2018-08-01] MEDS: BENZONATATE 100 MG CAPSULE PO PRN (23:09)
[2018-08-01] MEDS: ENOXAPARIN 40 MG/0.4 ML SYRINGE SUBCUT SCH (23:11)
[2018-08-02] MEDS: ALBUTEROL/IPRATROPIUM 3 ML NEB RESP TX SCH ×4 (00:23→20:04)
[2018-08-02] MEDS: methylPREDNISolone SOD SUC 40 MG/1 ML VIAL IV SCH ×2 (02:39→17:19)
[2018-08-02] MEDS: LEVOTHYROXINE 112 MCG TABLET PO SCH (06:10)
[2018-08-02] MEDS: ASPIRIN EC 81 MG TABLET PO SCH (11:13)
[2018-08-02] MEDS: FERROUS SULFATE 325 MG TABLET PO SCH (11:13)
[2018-08-02] MEDS: MONTELUKAST 10 MG TABLET PO SCH (11:13)
[2018-08-02] MEDS: THEOPHYLLINE ER 300 MG TABLET PO SCH ×2 (11:13→17:19)
[2018-08-02] MEDS: PANTOPRAZOLE 40 MG TABLET PO SCH (11:14)
[2018-08-02] MEDS: MAGNESIUM CHLORIDE 64 MG TABLET PO SCH (11:14)
[2018-08-02] MEDS: FAMOTIDINE 20 MG TABLET PO SCH ×2 (11:14→21:40)
[2018-08-02] MEDS: CHOLECALCIFEROL 400 UNIT TABLET PO SCH (11:14)
[2018-08-02] MEDS: DOCUSATE SODIUM 100 MG CAPSULE PO SCH (11:14)
[2018-08-02] MEDS: METOPROLOL TARTRATE 50 MG TABLET PO SCH ×2 (11:14→21:40)
[2018-08-02] MEDS: ALBUTEROL 2 MG TABLET PO SCH ×2 (11:14→21:40)
[2018-08-02] MEDS: POLYETHYLENE GLYCOL POWDER 17 GM PACK PO SCH (11:15)
[2018-08-02] MEDS: cycloSPORINE OPH EMUL 1 VIAL BOTH EYES SCH ×2 (11:15→21:41)
[2018-08-02] MEDS: prednisoLONE ACETATE 1% OPH SUSP 5 ML BOTTLE LEFT EYE SCH ×4 (11:15→21:41)
[2018-08-02] MEDS: ALLOPURINOL 100 MG TABLET PO SCH (11:15)
[2018-08-02] MEDS: amLODIPine 5 MG TABLET PO SCH (11:15)
[2018-08-02 11:49] LABS: Basophils % 0.1 % (0.0-0.8); Hematocrit 36.7 VOL% (35.7-47.0); Hemoglobin 11.6 GM/DL (12.0-16.0); Immature Granulocytes % 0.8 %; Immature Granulocytes Absolute 0.12 #; Lymphocytes # 0.9 10*3/uL (1.4-4.0); Lymphocytes % 6.4 % (21.3-54.2); Mean Corpuscular HGB Conc 31.6 GM/DL (32-36); Mean Corpuscular Hemoglobin 30 PG (27-34); Mean Corpuscular Volume 95.1 FL (87-102); Mean Platelet Volume 10.2 FL (9.6-12.0); Monocytes # 0.2 10*3/uL (0.11-0.8); Monocytes % 1.3 % (1.7-12.7); Neutrophils # 13.1 10*3/uL (1.4-7.4); Neutrophils % 91.4 % (38.7-73.9); Platelet Count 217 T/CUMM (130-400); Red Blood Count 3.86 MC/CUMM (3.8-5.5); Red Cell Distribution Width 14.6 % (9.3-17.3); White Blood Count 14.3 T/CUMM (4-12)
[2018-08-02 12:14] LABS: Band Neutrophils 1 % (0-10); Hypochromasia 1+; Lymphocytes 9 % (20-55); Platelet Estimate Adequate; Segmented Neutrophils 89 % (50-85); Total Cells Counted 100
[2018-08-02 12:16] LABS: Calcium 9.2 MG/DL (8.5-10.1); Osmolality,Calculated 292.8 MOS/KG (273-304); Potassium 3.9 MMOL/L (3.5-5.1)
[2018-08-02] MEDS: AZITHROMYCIN 250 MG TABLET PO SCH (21:41)
[2018-08-02] MEDS: cefTRIAXone 1,000 MG in SYRINGE 1 EACH IV SCH (21:42)
[2018-08-03] MEDS: ALBUTEROL/IPRATROPIUM 3 ML NEB RESP TX SCH ×4 (00:13→19:23)
[2018-08-03 04:00] LABS: Basophils % 0.1 % (0.0-0.8); Hematocrit 35.1 VOL% (35.7-47.0); Hemoglobin 10.9 GM/DL (12.0-16.0); Immature Granulocytes Absolute 0.11 #; Lymphocytes % 8.9 % (21.3-54.2); Mean Corpuscular HGB Conc 31.1 GM/DL (32-36); Mean Corpuscular Hemoglobin 29 PG (27-34); Mean Corpuscular Volume 94.4 FL (87-102); Mean Platelet Volume 11.2 FL (9.6-12.0); Monocytes # 0.1 10*3/uL (0.11-0.8); Monocytes % 1.2 % (1.7-12.7); Neutrophils # 9.7 10*3/uL (1.4-7.4); Neutrophils % 88.8 % (38.7-73.9); Platelet Count 236 T/CUMM (130-400); Red Blood Count 3.72 MC/CUMM (3.8-5.5); Red Cell Distribution Width 14.6 % (9.3-17.3)
[2018-08-03 04:22] LABS: Calcium 9.2 MG/DL (8.5-10.1); Osmolality,Calculated 293.7 MOS/KG (273-304); Potassium 4.2 MMOL/L (3.5-5.1)
[2018-08-03] MEDS: LEVOTHYROXINE 112 MCG TABLET PO SCH (06:13)
[2018-08-03] MEDS ORDERED: LIDOCAINE 2% 5 ML VIAL ONE (10:00)
[2018-08-03] MEDS ORDERED: PROPOFOL 200 MG/20 ML VIAL IV ONE (10:00)
[2018-08-03] MEDS: POLYETHYLENE GLYCOL POWDER 17 GM PACK PO SCH (10:20)
[2018-08-03] MEDS: cycloSPORINE OPH EMUL 1 VIAL BOTH EYES SCH ×2 (10:20→21:57)
[2018-08-03] MEDS: prednisoLONE ACETATE 1% OPH SUSP 5 ML BOTTLE LEFT EYE SCH ×4 (10:20→21:57)
[2018-08-03] MEDS: PANTOPRAZOLE 40 MG TABLET PO SCH (10:21)
[2018-08-03] MEDS: ASPIRIN EC 81 MG TABLET PO SCH (10:21)
[2018-08-03] MEDS: THEOPHYLLINE ER 300 MG TABLET PO SCH (10:21)
[2018-08-03] MEDS: amLODIPine 5 MG TABLET PO SCH (10:21)
[2018-08-03] MEDS: DOCUSATE SODIUM 100 MG CAPSULE PO SCH (10:21)
[2018-08-03] MEDS: METOPROLOL TARTRATE 50 MG TABLET PO SCH ×2 (10:21→21:53)
[2018-08-03] MEDS: ALLOPURINOL 100 MG TABLET PO SCH (10:21)
[2018-08-03] MEDS: FAMOTIDINE 20 MG TABLET PO SCH ×2 (10:21→21:52)
[2018-08-03] MEDS: MONTELUKAST 10 MG TABLET PO SCH (10:21)
[2018-08-03] MEDS: ALBUTEROL 2 MG TABLET PO SCH ×2 (10:21→21:53)
[2018-08-03] MEDS: FERROUS SULFATE 325 MG TABLET PO SCH (10:21)
[2018-08-03] MEDS: MAGNESIUM CHLORIDE 64 MG TABLET PO SCH (10:22)
[2018-08-03] MEDS: CHOLECALCIFEROL 400 UNIT TABLET PO SCH (10:22)
[2018-08-03] MEDS: methylPREDNISolone SOD SUC 40 MG/1 ML VIAL IV SCH ×2 (10:22→21:53)
[2018-08-03] MEDS: AZITHROMYCIN 250 MG TABLET PO SCH (21:53)
[2018-08-03] MEDS: cefTRIAXone 1,000 MG in SYRINGE 1 EACH IV SCH (21:56)
[2018-08-04] MEDS: ALBUTEROL/IPRATROPIUM 3 ML NEB RESP TX SCH ×4 (00:01→20:30)
[2018-08-04 05:53] LABS: Hematocrit 33.1 VOL% (35.7-47.0); Hemoglobin 10.2 GM/DL (12.0-16.0); Immature Granulocytes Absolute 0.07 #; Lymphocytes % 13.6 % (21.3-54.2); Mean Corpuscular HGB Conc 30.8 GM/DL (32-36); Mean Corpuscular Hemoglobin 30 PG (27-34); Mean Corpuscular Volume 95.7 FL (87-102); Mean Platelet Volume 11.4 FL (9.6-12.0); Monocytes # 0.1 10*3/uL (0.11-0.8); Monocytes % 0.8 % (1.7-12.7); Neutrophils # 6.1 10*3/uL (1.4-7.4); Neutrophils % 84.6 % (38.7-73.9); Platelet Count 240 T/CUMM (130-400); Red Blood Count 3.46 MC/CUMM (3.8-5.5); Red Cell Distribution Width 14.7 % (9.3-17.3); White Blood Count 7.2 T/CUMM (4-12)
[2018-08-04] MEDS: LEVOTHYROXINE 112 MCG TABLET PO SCH (06:10)
[2018-08-04 06:25] LABS: Calcium 8.8 MG/DL (8.5-10.1); Osmolality,Calculated 297.6 MOS/KG (273-304); Potassium 4.4 MMOL/L (3.5-5.1)
[2018-08-04] MEDS: FERROUS SULFATE 325 MG TABLET PO SCH (08:47)
[2018-08-04] MEDS: methylPREDNISolone SOD SUC 40 MG/1 ML VIAL IV SCH ×2 (08:47→21:27)
[2018-08-04] MEDS: DOCUSATE SODIUM 100 MG CAPSULE PO SCH (08:47)
[2018-08-04] MEDS: amLODIPine 5 MG TABLET PO SCH (08:47)
[2018-08-04] MEDS: THEOPHYLLINE ER 300 MG TABLET PO SCH ×2 (08:48→16:31)
[2018-08-04] MEDS: ALBUTEROL 2 MG TABLET PO SCH ×2 (08:48→22:39)
[2018-08-04] MEDS: PANTOPRAZOLE 40 MG TABLET PO SCH (08:48)
[2018-08-04] MEDS: MAGNESIUM CHLORIDE 64 MG TABLET PO SCH (08:48)
[2018-08-04] MEDS: METOPROLOL TARTRATE 50 MG TABLET PO SCH ×2 (08:48→22:40)
[2018-08-04] MEDS: FAMOTIDINE 20 MG TABLET PO SCH ×2 (08:48→22:40)
[2018-08-04] MEDS: MONTELUKAST 10 MG TABLET PO SCH (08:48)
[2018-08-04] MEDS: POLYETHYLENE GLYCOL POWDER 17 GM PACK PO SCH (08:49)
[2018-08-04] MEDS: ASPIRIN EC 81 MG TABLET PO SCH (08:49)
[2018-08-04] MEDS: CHOLECALCIFEROL 400 UNIT TABLET PO SCH (08:49)
[2018-08-04] MEDS: ALLOPURINOL 100 MG TABLET PO SCH (08:49)
[2018-08-04] MEDS: prednisoLONE ACETATE 1% OPH SUSP 5 ML BOTTLE LEFT EYE SCH ×4 (08:49→22:39)
[2018-08-04] MEDS: cycloSPORINE OPH EMUL 1 VIAL BOTH EYES SCH ×2 (08:49→22:38)
[2018-08-04] MEDS: DICLOFENAC 1.3% PATCH 5/PACK TRANSDERM SCH ×2 (11:52→22:25)
[2018-08-04] MEDS: cefTRIAXone 1,000 MG in SYRINGE 1 EACH IV SCH (22:29)
[2018-08-04] MEDS: AZITHROMYCIN 250 MG TABLET PO SCH (22:39)
[2018-08-05] MEDS: ALBUTEROL/IPRATROPIUM 3 ML NEB RESP TX SCH ×4 (00:14→19:10)
[2018-08-05 04:59] LABS: Basophils % 0.2 % (0.0-0.8); Hematocrit 37.2 VOL% (35.7-47.0); Hemoglobin 11.6 GM/DL (12.0-16.0); Immature Granulocytes % 2.8 %; Immature Granulocytes Absolute 0.25 #; Lymphocytes # 1.5 10*3/uL (1.4-4.0); Lymphocytes % 16.2 % (21.3-54.2); Mean Corpuscular HGB Conc 31.2 GM/DL (32-36); Mean Corpuscular Hemoglobin 29 PG (27-34); Mean Corpuscular Volume 94.2 FL (87-102); Mean Platelet Volume 10.8 FL (9.6-12.0); Monocytes # 0.2 10*3/uL (0.11-0.8); Monocytes % 1.9 % (1.7-12.7); NRBC # 0.02 10*3/uL; Neutrophils # 7.2 10*3/uL (1.4-7.4); Neutrophils % 78.9 % (38.7-73.9); Platelet Count 261 T/CUMM (130-400); Red Blood Count 3.95 MC/CUMM (3.8-5.5); Red Cell Distribution Width 14.4 % (9.3-17.3); White Blood Count 9.1 T/CUMM (4-12)
[2018-08-05 05:12] LABS: INR 0.9; PT Patient Result 9.5 SECS; Partial Thromboplastin Time 25.6 SECS (0-40)
[2018-08-05] MEDS: LEVOTHYROXINE 112 MCG TABLET PO SCH (06:29)
[2018-08-05] MEDS ORDERED: BENZONATATE 100 MG CAPSULE PO ONE (08:00)
[2018-08-05] MEDS ORDERED: diphenhydrAMINE 50 MG/1 ML VIAL IM ONE (08:00)
[2018-08-05] MEDS ORDERED: MIDAZOLAM 2 MG/2 ML VIAL ONE (08:10)
[2018-08-05] MEDS ORDERED: LIDOCAINE 1% 20 ML VIAL MISC INJ ONE (08:30)
[2018-08-05] MEDS ORDERED: LIDOCAINE 2% VISCOUS 100 ML BOTTLE SWISH/SPIT ONE (08:30)
[2018-08-05] MEDS ORDERED: LIDOCAINE 2% 20 ML VIAL RESP TX ONE (08:30)
[2018-08-05] MEDS: DICLOFENAC 1.3% PATCH 5/PACK TRANSDERM SCH ×2 (11:39→22:39)
[2018-08-05] MEDS: MAGNESIUM CHLORIDE 64 MG TABLET PO SCH (11:40)
[2018-08-05] MEDS: CHOLECALCIFEROL 400 UNIT TABLET PO SCH (11:40)
[2018-08-05] MEDS: THEOPHYLLINE ER 300 MG TABLET PO SCH ×2 (11:40→16:24)
[2018-08-05] MEDS: ASPIRIN EC 81 MG TABLET PO SCH (11:40)
[2018-08-05] MEDS: FAMOTIDINE 20 MG TABLET PO SCH ×2 (11:40→22:31)
[2018-08-05] MEDS: POLYETHYLENE GLYCOL POWDER 17 GM PACK PO SCH (11:40)
[2018-08-05] MEDS: FERROUS SULFATE 325 MG TABLET PO SCH (11:40)
[2018-08-05] MEDS: MONTELUKAST 10 MG TABLET PO SCH (11:40)
[2018-08-05] MEDS: amLODIPine 5 MG TABLET PO SCH (11:40)
[2018-08-05] MEDS: METOPROLOL TARTRATE 50 MG TABLET PO SCH ×2 (11:40→22:31)
[2018-08-05] MEDS: ALBUTEROL 2 MG TABLET PO SCH ×2 (11:40→22:31)
[2018-08-05] MEDS: methylPREDNISolone SOD SUC 40 MG/1 ML VIAL IV SCH ×2 (11:41→22:00)
[2018-08-05] MEDS: ALLOPURINOL 100 MG TABLET PO SCH (11:41)
[2018-08-05] MEDS: PANTOPRAZOLE 40 MG TABLET PO SCH (11:41)
[2018-08-05] MEDS: prednisoLONE ACETATE 1% OPH SUSP 5 ML BOTTLE LEFT EYE SCH ×4 (11:41→22:30)
[2018-08-05] MEDS: DOCUSATE SODIUM 100 MG CAPSULE PO SCH (11:41)
[2018-08-05] MEDS: cycloSPORINE OPH EMUL 1 VIAL BOTH EYES SCH ×2 (11:42→22:32)
[2018-08-05] MEDS: cefTRIAXone 1,000 MG in SYRINGE 1 EACH IV SCH (22:05)
[2018-08-05] MEDS: BENZONATATE 100 MG CAPSULE PO PRN (22:31)
[2018-08-05] MEDS: ENOXAPARIN 40 MG/0.4 ML SYRINGE SUBCUT SCH (22:42)
[2018-08-06] MEDS: ALBUTEROL/IPRATROPIUM 3 ML NEB RESP TX SCH ×4 (00:57→20:53)
[2018-08-06] MEDS: LEVOTHYROXINE 112 MCG TABLET PO SCH (07:10)
[2018-08-06] MEDS: DICLOFENAC 1.3% PATCH 5/PACK TRANSDERM SCH (09:52)
[2018-08-06] MEDS: THEOPHYLLINE ER 300 MG TABLET PO SCH ×2 (09:53→18:18)
[2018-08-06] MEDS: ASPIRIN EC 81 MG TABLET PO SCH (09:53)
[2018-08-06] MEDS: cycloSPORINE OPH EMUL 1 VIAL BOTH EYES SCH ×2 (09:53→21:48)
[2018-08-06] MEDS: FERROUS SULFATE 325 MG TABLET PO SCH (09:53)
[2018-08-06] MEDS: DOCUSATE SODIUM 100 MG CAPSULE PO SCH (09:53)
[2018-08-06] MEDS: MAGNESIUM CHLORIDE 64 MG TABLET PO SCH (09:53)
[2018-08-06] MEDS: amLODIPine 5 MG TABLET PO SCH (09:54)
[2018-08-06] MEDS: ALBUTEROL 2 MG TABLET PO SCH ×2 (09:54→21:48)
[2018-08-06] MEDS: CHOLECALCIFEROL 400 UNIT TABLET PO SCH (09:54)
[2018-08-06] MEDS: ALLOPURINOL 100 MG TABLET PO SCH (09:54)
[2018-08-06] MEDS: prednisoLONE ACETATE 1% OPH SUSP 5 ML BOTTLE LEFT EYE SCH ×4 (09:54→21:48)
[2018-08-06] MEDS: POLYETHYLENE GLYCOL POWDER 17 GM PACK PO SCH (09:54)
[2018-08-06] MEDS: MONTELUKAST 10 MG TABLET PO SCH (09:54)
[2018-08-06] MEDS: methylPREDNISolone SOD SUC 40 MG/1 ML VIAL IV SCH ×2 (09:54→22:04)
[2018-08-06] MEDS: PANTOPRAZOLE 40 MG TABLET PO SCH (09:54)
[2018-08-06] MEDS: FAMOTIDINE 20 MG TABLET PO SCH ×2 (09:54→21:48)
[2018-08-06] MEDS: METOPROLOL TARTRATE 50 MG TABLET PO SCH ×2 (09:54→21:48)
[2018-08-06] MEDS: ALBUTEROL 2.5 MG/3 ML NEB RESP TX PRN (16:29)
[2018-08-06] MEDS: DORNASE ALFA 2.5 MG/2.5 ML VIAL RESP TX SCH (20:54)
[2018-08-06] MEDS: cefTRIAXone 1,000 MG in SYRINGE 1 EACH IV SCH (21:47)
[2018-08-06] MEDS: ENOXAPARIN 40 MG/0.4 ML SYRINGE SUBCUT SCH (21:48)
[2018-08-07] MEDS: DICLOFENAC 1.3% PATCH 5/PACK TRANSDERM SCH ×3 (00:35→21:48)
[2018-08-07] MEDS: ALBUTEROL/IPRATROPIUM 3 ML NEB RESP TX SCH ×4 (01:06→19:17)
[2018-08-07 05:39] LABS: Prealbumin 20.8 MG/DL (20-40)
[2018-08-07] MEDS: LEVOTHYROXINE 112 MCG TABLET PO SCH (06:37)
[2018-08-07] MEDS: DORNASE ALFA 2.5 MG/2.5 ML VIAL RESP TX SCH ×2 (07:06→19:17)
[2018-08-07] MEDS: FAMOTIDINE 20 MG TABLET PO SCH ×2 (09:56→21:47)
[2018-08-07] MEDS: PANTOPRAZOLE 40 MG TABLET PO SCH (09:56)
[2018-08-07] MEDS: THEOPHYLLINE ER 300 MG TABLET PO SCH ×2 (09:56→16:32)
[2018-08-07] MEDS: prednisoLONE ACETATE 1% OPH SUSP 5 ML BOTTLE LEFT EYE SCH ×4 (09:57→21:47)
[2018-08-07] MEDS: CHOLECALCIFEROL 400 UNIT TABLET PO SCH (09:57)
[2018-08-07] MEDS: ASPIRIN EC 81 MG TABLET PO SCH (09:57)
[2018-08-07] MEDS: METOPROLOL TARTRATE 50 MG TABLET PO SCH ×2 (09:57→21:47)
[2018-08-07] MEDS: amLODIPine 5 MG TABLET PO SCH (09:57)
[2018-08-07] MEDS: FERROUS SULFATE 325 MG TABLET PO SCH (09:57)
[2018-08-07] MEDS: MAGNESIUM CHLORIDE 64 MG TABLET PO SCH (09:57)
[2018-08-07] MEDS: ALLOPURINOL 100 MG TABLET PO SCH (09:57)
[2018-08-07] MEDS: DOCUSATE SODIUM 100 MG CAPSULE PO SCH (09:57)
[2018-08-07] MEDS: MONTELUKAST 10 MG TABLET PO SCH (09:57)
[2018-08-07] MEDS: ALBUTEROL 2 MG TABLET PO SCH ×2 (09:57→21:47)
[2018-08-07] MEDS: POLYETHYLENE GLYCOL POWDER 17 GM PACK PO SCH (09:58)
[2018-08-07] MEDS: cycloSPORINE OPH EMUL 1 VIAL BOTH EYES SCH ×2 (09:58→21:47)
[2018-08-07] MEDS: methylPREDNISolone SOD SUC 40 MG/1 ML VIAL IV SCH ×2 (10:21→21:49)
[2018-08-07] MEDS: ALBUTEROL 2.5 MG/3 ML NEB RESP TX PRN ×2 (10:44→17:10)
[2018-08-07] MEDS: cefTRIAXone 1,000 MG in SYRINGE 1 EACH IV SCH (21:46)
[2018-08-07] MEDS: ENOXAPARIN 40 MG/0.4 ML SYRINGE SUBCUT SCH (21:47)
[2018-08-08] MEDS: ALBUTEROL/IPRATROPIUM 3 ML NEB RESP TX SCH ×5 (00:27→19:23)
[2018-08-08 04:55] LABS: Basophils % 0.2 % (0.0-0.8); Hematocrit 38.6 VOL% (35.7-47.0); Hemoglobin 11.8 GM/DL (12.0-16.0); Immature Granulocytes % 4.8 %; Immature Granulocytes Absolute 0.57 #; Lymphocytes # 1.6 10*3/uL (1.4-4.0); Lymphocytes % 13.9 % (21.3-54.2); Mean Corpuscular HGB Conc 30.6 GM/DL (32-36); Mean Corpuscular Hemoglobin 29 PG (27-34); Mean Corpuscular Volume 94.6 FL (87-102); Mean Platelet Volume 10.9 FL (9.6-12.0); Monocytes # 0.6 10*3/uL (0.11-0.8); Monocytes % 5.3 % (1.7-12.7); Neutrophils # 8.9 10*3/uL (1.4-7.4); Neutrophils % 75.8 % (38.7-73.9); Platelet Count 300 T/CUMM (130-400); Red Blood Count 4.08 MC/CUMM (3.8-5.5); Red Cell Distribution Width 14.6 % (9.3-17.3); White Blood Count 11.8 T/CUMM (4-12)
[2018-08-08 05:25] LABS: Calcium 8.9 MG/DL (8.5-10.1); Potassium 4.5 MMOL/L (3.5-5.1)
[2018-08-08] MEDS: LEVOTHYROXINE 112 MCG TABLET PO SCH (06:33)
[2018-08-08] MEDS: DORNASE ALFA 2.5 MG/2.5 ML VIAL RESP TX SCH ×3 (06:50→19:24)
[2018-08-08 07:04] LABS: Band Neutrophils 3 % (0-10); Hypochromasia Slight; Lymphocytes 12 % (20-55); Segmented Neutrophils 81 % (50-85)
[2018-08-08 07:05] LABS: Platelet Estimate Normal; Total Cells Counted 100
[2018-08-08] MEDS: DICLOFENAC 1.3% PATCH 5/PACK TRANSDERM SCH ×2 (09:36→22:22)
[2018-08-08] MEDS: prednisoLONE ACETATE 1% OPH SUSP 5 ML BOTTLE LEFT EYE SCH ×4 (09:37→22:22)
[2018-08-08] MEDS: POLYETHYLENE GLYCOL POWDER 17 GM PACK PO SCH (09:37)
[2018-08-08] MEDS: PANTOPRAZOLE 40 MG TABLET PO SCH (09:37)
[2018-08-08] MEDS: cycloSPORINE OPH EMUL 1 VIAL BOTH EYES SCH ×2 (09:37→22:24)
[2018-08-08] MEDS: DOCUSATE SODIUM 100 MG CAPSULE PO SCH (09:37)
[2018-08-08] MEDS: amLODIPine 5 MG TABLET PO SCH (09:38)
[2018-08-08] MEDS: CHOLECALCIFEROL 400 UNIT TABLET PO SCH (09:38)
[2018-08-08] MEDS: FAMOTIDINE 20 MG TABLET PO SCH ×2 (09:38→22:21)
[2018-08-08] MEDS: ALBUTEROL 2 MG TABLET PO SCH ×2 (09:38→22:21)
[2018-08-08] MEDS: THEOPHYLLINE ER 300 MG TABLET PO SCH ×2 (09:38→16:56)
[2018-08-08] MEDS: MAGNESIUM CHLORIDE 64 MG TABLET PO SCH (09:38)
[2018-08-08] MEDS: METOPROLOL TARTRATE 50 MG TABLET PO SCH ×2 (09:38→22:22)
[2018-08-08] MEDS: ASPIRIN EC 81 MG TABLET PO SCH (09:38)
[2018-08-08] MEDS: ALLOPURINOL 100 MG TABLET PO SCH (09:38)
[2018-08-08] MEDS: MONTELUKAST 10 MG TABLET PO SCH (09:38)
[2018-08-08] MEDS: methylPREDNISolone SOD SUC 40 MG/1 ML VIAL IV SCH ×2 (09:38→22:24)
[2018-08-08] MEDS: FERROUS SULFATE 325 MG TABLET PO SCH (09:38)
[2018-08-08] MEDS: ALBUTEROL 2.5 MG/3 ML NEB RESP TX PRN ×2 (15:25→15:45)
[2018-08-08] MEDS: cefTRIAXone 1,000 MG in SYRINGE 1 EACH IV SCH (22:22)
[2018-08-09] MEDS: ALBUTEROL/IPRATROPIUM 3 ML NEB RESP TX SCH ×4 (00:18→20:05)
[2018-08-09 05:07] LABS: Basophils % 0.4 % (0.0-0.8); Eosinophils % 0.1 % (0.00-10.9); Hematocrit 37.9 VOL% (35.7-47.0); Hemoglobin 11.9 GM/DL (12.0-16.0); Immature Granulocytes % 6.2 %; Immature Granulocytes Absolute 0.53 #; Lymphocytes # 1.1 10*3/uL (1.4-4.0); Lymphocytes % 13.2 % (21.3-54.2); Mean Corpuscular HGB Conc 31.4 GM/DL (32-36); Mean Corpuscular Hemoglobin 30 PG (27-34); Mean Platelet Volume 10.3 FL (9.6-12.0); Monocytes # 0.3 10*3/uL (0.11-0.8); Neutrophils # 6.6 10*3/uL (1.4-7.4); Neutrophils % 77.1 % (38.7-73.9); Platelet Count 281 T/CUMM (130-400); Red Blood Count 3.99 MC/CUMM (3.8-5.5); Red Cell Distribution Width 14.7 % (9.3-17.3); White Blood Count 8.5 T/CUMM (4-12)
[2018-08-09 05:14] LABS: INR 0.9; PT Patient Result 9.3 SECS
[2018-08-09 05:41] LABS: Band Neutrophils 2 % (0-10); Hypochromasia 1+; Lymphocytes 18 % (20-55); Platelet Estimate Adequate; Segmented Neutrophils 77 % (50-85); Total Cells Counted 100
[2018-08-09 05:44] LABS: Calcium 8.9 MG/DL (8.5-10.1); Osmolality,Calculated 288.1 MOS/KG (273-304); Potassium 5.1 MMOL/L (3.5-5.1)
[2018-08-09] MEDS ORDERED: ceFAZolin 1,000 MG in SYRINGE 1 EACH IV ONE (06:00)
[2018-08-09] MEDS: DORNASE ALFA 2.5 MG/2.5 ML VIAL RESP TX SCH ×2 (07:20→20:05)
[2018-08-09] MEDS ORDERED: BENZONATATE 100 MG CAPSULE PO ONE (08:00)
[2018-08-09] MEDS ORDERED: diphenhydrAMINE 50 MG/1 ML VIAL IM ONE (08:00)
[2018-08-09] MEDS ORDERED: LIDOCAINE 1% 20 ML VIAL MISC INJ ONE (08:30)
[2018-08-09] MEDS ORDERED: LIDOCAINE 2% VISCOUS 100 ML BOTTLE SWISH/SPIT ONE (08:30)
[2018-08-09] MEDS ORDERED: LIDOCAINE 2% 20 ML VIAL RESP TX ONE (08:30)
[2018-08-09] MEDS ORDERED: PROPOFOL 200 MG/20 ML VIAL IV ONE (08:50)
[2018-08-09] MEDS ORDERED: ETOMIDATE 20 MG/10 ML VIAL IV ONE (08:50)
[2018-08-09] MEDS ORDERED: LIDOCAINE 100 MG/5 ML SYRINGE ONE (08:50)
[2018-08-09] MEDS: prednisoLONE ACETATE 1% OPH SUSP 5 ML BOTTLE LEFT EYE SCH ×4 (10:51→21:32)
[2018-08-09] MEDS: FERROUS SULFATE 325 MG TABLET PO SCH (13:19)
[2018-08-09] MEDS: ASPIRIN EC 81 MG TABLET PO SCH (13:19)
[2018-08-09] MEDS: ALLOPURINOL 100 MG TABLET PO SCH (13:20)
[2018-08-09] MEDS: METOPROLOL TARTRATE 50 MG TABLET PO SCH ×2 (13:20→21:29)
[2018-08-09] MEDS: ALBUTEROL 2 MG TABLET PO SCH ×2 (13:20→21:30)
[2018-08-09] MEDS: THEOPHYLLINE ER 300 MG TABLET PO SCH ×2 (13:20→18:11)
[2018-08-09] MEDS: amLODIPine 5 MG TABLET PO SCH (13:20)
[2018-08-09] MEDS: MAGNESIUM CHLORIDE 64 MG TABLET PO SCH (13:21)
[2018-08-09] MEDS: methylPREDNISolone SOD SUC 40 MG/1 ML VIAL IV SCH ×2 (13:21→21:30)
[2018-08-09] MEDS: DOCUSATE SODIUM 100 MG CAPSULE PO SCH (13:21)
[2018-08-09] MEDS: MONTELUKAST 10 MG TABLET PO SCH (13:21)
[2018-08-09] MEDS: CHOLECALCIFEROL 400 UNIT TABLET PO SCH (13:22)
[2018-08-09] MEDS: LEVOTHYROXINE 112 MCG TABLET PO SCH (13:22)
[2018-08-09] MEDS: cycloSPORINE OPH EMUL 1 VIAL BOTH EYES SCH ×2 (13:23→21:32)
[2018-08-09] MEDS: LANSOPRAZOLE ODT 30 MG TABLET PEG SCH (13:23)
[2018-08-09] MEDS: DICLOFENAC 1.3% PATCH 5/PACK TRANSDERM SCH ×2 (13:23→21:47)
[2018-08-09] MEDS: POLYETHYLENE GLYCOL POWDER 17 GM PACK PO SCH (13:23)
[2018-08-09] MEDS: LEVOFLOXACIN INJ 250 MG in PREMIX 1 EACH IV SCH (13:24)
[2018-08-09] MEDS: FAMOTIDINE 20 MG TABLET PO SCH (14:03)
[2018-08-09] MEDS: PANTOPRAZOLE 40 MG TABLET PO SCH (14:03)
[2018-08-10] MEDS: ALBUTEROL/IPRATROPIUM 3 ML NEB RESP TX SCH ×4 (02:20→19:07)
[2018-08-10 05:47] LABS: Basophils % 0.2 % (0.0-0.8); Hematocrit 36.7 VOL% (35.7-47.0); Hemoglobin 11.5 GM/DL (12.0-16.0); Immature Granulocytes % 3.2 %; Lymphocytes # 1.1 10*3/uL (1.4-4.0); Lymphocytes % 11.6 % (21.3-54.2); Mean Corpuscular HGB Conc 31.3 GM/DL (32-36); Mean Corpuscular Hemoglobin 30 PG (27-34); Mean Corpuscular Volume 94.8 FL (87-102); Mean Platelet Volume 10.5 FL (9.6-12.0); Monocytes # 0.1 10*3/uL (0.11-0.8); Monocytes % 1.5 % (1.7-12.7); Neutrophils # 7.7 10*3/uL (1.4-7.4); Neutrophils % 83.5 % (38.7-73.9); Platelet Count 293 T/CUMM (130-400); Red Blood Count 3.87 MC/CUMM (3.8-5.5); Red Cell Distribution Width 14.6 % (9.3-17.3); White Blood Count 9.2 T/CUMM (4-12)
[2018-08-10 06:31] LABS: Calcium 8.8 MG/DL (8.5-10.1); Osmolality,Calculated 289.5 MOS/KG (273-304); Potassium 4.5 MMOL/L (3.5-5.1)
[2018-08-10] MEDS: LEVOTHYROXINE 112 MCG TABLET PO SCH (06:33)
[2018-08-10] MEDS: DORNASE ALFA 2.5 MG/2.5 ML VIAL RESP TX SCH ×2 (07:36→19:07)
[2018-08-10] MEDS: prednisoLONE ACETATE 1% OPH SUSP 5 ML BOTTLE LEFT EYE SCH ×4 (10:56→22:04)
[2018-08-10] MEDS: cycloSPORINE OPH EMUL 1 VIAL BOTH EYES SCH ×2 (10:56→22:06)
[2018-08-10] MEDS: CHOLECALCIFEROL 400 UNIT TABLET PO SCH (10:57)
[2018-08-10] MEDS: DOCUSATE SODIUM 100 MG CAPSULE PO SCH (10:57)
[2018-08-10] MEDS: THEOPHYLLINE ER 300 MG TABLET PO SCH ×2 (10:57→17:49)
[2018-08-10] MEDS: ALLOPURINOL 100 MG TABLET PO SCH (10:57)
[2018-08-10] MEDS: MAGNESIUM CHLORIDE 64 MG TABLET PO SCH (10:57)
[2018-08-10] MEDS: amLODIPine 5 MG TABLET PO SCH (10:57)
[2018-08-10] MEDS: FERROUS SULFATE 325 MG TABLET PO SCH (10:57)
[2018-08-10] MEDS: LANSOPRAZOLE ODT 30 MG TABLET PEG SCH (10:57)
[2018-08-10] MEDS: MONTELUKAST 10 MG TABLET PO SCH (10:57)
[2018-08-10] MEDS: ALBUTEROL 2 MG TABLET PO SCH ×2 (10:57→22:05)
[2018-08-10] MEDS: ASPIRIN EC 81 MG TABLET PO SCH (10:58)
[2018-08-10] MEDS: METOPROLOL TARTRATE 50 MG TABLET PO SCH ×2 (10:58→22:08)
[2018-08-10] MEDS: methylPREDNISolone SOD SUC 40 MG/1 ML VIAL IV SCH ×2 (10:58→22:08)
[2018-08-10] MEDS: POLYETHYLENE GLYCOL POWDER 17 GM PACK PO SCH (10:58)
[2018-08-10] MEDS: DICLOFENAC 1.3% PATCH 5/PACK TRANSDERM SCH ×2 (10:59→22:06)
[2018-08-10] MEDS: LEVOFLOXACIN INJ 250 MG in PREMIX 1 EACH IV SCH (12:40)
[2018-08-10] MEDS: FLUCONAZOLE 100 MG TABLET PO SCH (12:40)
[2018-08-10] MEDS ORDERED: METOPROLOL TARTRATE 5 MG/5 ML VIAL IV STA (21:25)
[2018-08-10] MEDS: LEVALBUTEROL 1.25 MG/3 ML NEB RESP TX SCH (23:03)
[2018-08-11] MEDS: BENZONATATE 100 MG CAPSULE PO PRN (00:04)
[2018-08-11] MEDS: LEVALBUTEROL 1.25 MG/3 ML NEB RESP TX SCH ×3 (02:51→11:55)
[2018-08-11 05:31] LABS: Basophils % 0.3 % (0.0-0.8); Hematocrit 37.7 VOL% (35.7-47.0); Hemoglobin 11.9 GM/DL (12.0-16.0); Immature Granulocytes % 4.6 %; Immature Granulocytes Absolute 0.47 #; Lymphocytes # 0.9 10*3/uL (1.4-4.0); Lymphocytes % 8.7 % (21.3-54.2); Mean Corpuscular HGB Conc 31.6 GM/DL (32-36); Mean Corpuscular Hemoglobin 30 PG (27-34); Mean Platelet Volume 10.1 FL (9.6-12.0); Monocytes # 0.1 10*3/uL (0.11-0.8); Monocytes % 1.1 % (1.7-12.7); Neutrophils # 8.7 10*3/uL (1.4-7.4); Neutrophils % 85.3 % (38.7-73.9); Platelet Count 302 T/CUMM (130-400); Red Blood Count 4.01 MC/CUMM (3.8-5.5); Red Cell Distribution Width 14.4 % (9.3-17.3); White Blood Count 10.2 T/CUMM (4-12)
[2018-08-11 05:42] LABS: INR 0.9; PT Patient Result 9.4 SECS; Partial Thromboplastin Time 25.8 SECS (0-40)
[2018-08-11] MEDS: LEVOTHYROXINE 112 MCG TABLET PO SCH (06:36)
[2018-08-11] MEDS: DORNASE ALFA 2.5 MG/2.5 ML VIAL RESP TX SCH (07:19)
[2018-08-11] MEDS ORDERED: diphenhydrAMINE 50 MG/1 ML VIAL IM ONE (08:00)
[2018-08-11] MEDS ORDERED: LIDOCAINE 1% 20 ML VIAL MISC INJ ONE (08:30)
[2018-08-11] MEDS ORDERED: LIDOCAINE 2% VISCOUS 100 ML BOTTLE SWISH/SPIT ONE (08:30)
[2018-08-11] MEDS ORDERED: LIDOCAINE 2% 20 ML VIAL RESP TX ONE (08:30)
[2018-08-11] MEDS ORDERED: MIDAZOLAM 2 MG/2 ML VIAL ONE (08:32)
[2018-08-11] MEDS: prednisoLONE ACETATE 1% OPH SUSP 5 ML BOTTLE LEFT EYE SCH ×2 (11:36→12:07)
[2018-08-11] MEDS: DICLOFENAC 1.3% PATCH 5/PACK TRANSDERM SCH (11:37)
[2018-08-11] MEDS: MAGNESIUM CHLORIDE 64 MG TABLET PO SCH (11:53)
[2018-08-11] MEDS: POLYETHYLENE GLYCOL POWDER 17 GM PACK PO SCH (11:53)
[2018-08-11] MEDS: ALBUTEROL 2 MG TABLET PO SCH (11:53)
[2018-08-11] MEDS: THEOPHYLLINE ER 300 MG TABLET PO SCH (11:53)
[2018-08-11] MEDS: CHOLECALCIFEROL 400 UNIT TABLET PO SCH (11:53)
[2018-08-11] MEDS: ALLOPURINOL 100 MG TABLET PO SCH (11:54)
[2018-08-11] MEDS: amLODIPine 5 MG TABLET PO SCH (11:54)
[2018-08-11] MEDS: LANSOPRAZOLE ODT 30 MG TABLET PEG SCH (11:54)
[2018-08-11] MEDS: MONTELUKAST 10 MG TABLET PO SCH (11:54)
[2018-08-11] MEDS: FLUCONAZOLE 100 MG TABLET PO SCH (11:54)
[2018-08-11] MEDS: METOPROLOL TARTRATE 50 MG TABLET PO SCH (11:55)
[2018-08-11] MEDS: DOCUSATE SODIUM 100 MG CAPSULE PO SCH (11:55)
[2018-08-11] MEDS: methylPREDNISolone SOD SUC 40 MG/1 ML VIAL IV SCH (11:55)
[2018-08-11] MEDS: FERROUS SULFATE 325 MG TABLET PO SCH (11:55)
[2018-08-11] MEDS: ASPIRIN EC 81 MG TABLET PO SCH (11:56)
[2018-08-11] MEDS: cycloSPORINE OPH EMUL 1 VIAL BOTH EYES SCH (11:56)
[2018-08-11] MEDS: LEVOFLOXACIN INJ 250 MG in PREMIX 1 EACH IV SCH (11:56)
[2018-08-11 12:01] VITALS: BP 122/74
== END 2018-08-11 14:55 | disposition swing bed (61) | DRG 166 ==
LOC: N.ED 16:32 → SUATTDRO 19:34 → N.EDINP 19:34 → N.2E 20:11
PROVIDERS: ADMIT Internal Medicine; ATTEND Internal Medicine Cardiovascular Disease
PROC: EGDWPEG (ICD-10-PCS; 2018-08-09 08:05)

== ENCOUNTER 2018-10-22 05:05 | Inpatient (IN) ==
[2018-10-22] MEDS ORDERED: ALBUTEROL/IPRATROPIUM 3 ML NEB RESP TX STA (06:11)
[2018-10-22 06:25] LABS: Basophils % 0.2 % (0.0-0.8); Eosinophils % 0.1 % (0.00-10.9); Hematocrit 41.2 VOL% (35.7-47.0); Hemoglobin 12.4 GM/DL (12.0-16.0); Immature Granulocytes % 0.4 %; Immature Granulocytes Absolute 0.07 #; Lymphocytes # 1.6 10*3/uL (1.4-4.0); Lymphocytes % 9.1 % (21.3-54.2); Mean Corpuscular HGB Conc 30.1 GM/DL (32-36); Mean Corpuscular Hemoglobin 31 PG (27-34); Mean Corpuscular Volume 101.5 FL (87-102); Mean Platelet Volume 12.2 FL (9.6-12.0); Monocytes # 0.8 10*3/uL (0.11-0.8); Monocytes % 4.3 % (1.7-12.7); Neutrophils # 15.2 10*3/uL (1.4-7.4); Neutrophils % 85.9 % (38.7-73.9); Platelet Count 103 T/CUMM (130-400); Red Blood Count 4.06 MC/CUMM (3.8-5.5); Red Cell Distribution Width 15.7 % (9.3-17.3); White Blood Count 17.6 T/CUMM (4-12)
[2018-10-22 06:36] LABS: Apearance,Urine CLEAR (Clear); Bilirubin,Urine Negative (Negative); Blood, Urine Negative (Negative); Glucose,Urine (UA) Negative (Negative); Ketones,Urine Negative (Negative); Nitrite,Urine Negative (Negative); Protein,Urine 30 MG/DL; RBC,Urine 1 /HPF (0-4); Urine Color Yellow (Yellow); Urine Specific Gravity 1.023 (1.001-1.035); Urine Urobilinogen < 2.0 EU/DL (0.2-1.0); WBC,Urine 1 /HPF (0-6)
[2018-10-22 06:43] LABS: Band Neutrophils 4 % (0-10); Hypochromasia 1+; Lymphocytes 12 % (20-55); Ovalocytes Slight; Platelet Estimate Decreased; Segmented Neutrophils 83 % (50-85); Total Cells Counted 100
[2018-10-22 06:59] LABS: Albumin 2.8 G/DL (3.4-5.0); Bilirubin,Total 0.4 MG/DL (0.2-1.0); Calcium 9.6 MG/DL (8.5-10.1); Osmolality,Calculated 290.4 MOS/KG (273-304); Potassium 4.3 MMOL/L (3.5-5.1); Total Protein 6.5 G/DL (6.4-8.3)
[2018-10-22] MEDS ORDERED: cefTRIAXone 1,000 MG in SODIUM CHLORIDE 0.9% 100 ML IV STA (08:18)
[2018-10-22 09:46] LABS: ABG Base Excess 10.9 MMOL/L (-2.5-2.5); ABG HCO3 34.6 MMOL/L (20-26); ABG Oxygen Saturation 91.9 % (95-100); ABG PO2 63.6 MM HG (80-95); ABG TCO2 36.8 MMOL/L (23-27)
[2018-10-22] MEDS ORDERED: ALBUTEROL 2.5 MG/3 ML NEB RESP TX STA (09:56)
[2018-10-22] MEDS ORDERED: FUROSEMIDE 40 MG/4 ML VIAL IV STA (09:56)
[2018-10-22 09:59] LABS: ABG PCO2 82.2 MM HG (35-48)
[2018-10-22] MEDS ORDERED: ONDANSETRON 4 MG/2 ML VIAL IV PRN (12:07)
[2018-10-22 12:35] LABS: ABG HCO3 35.7 MMOL/L (20-26); ABG Oxygen Saturation 93.2 % (95-100); ABG PH 7.377 (7.35-7.45); ABG PO2 62.8 MM HG (80-95); ABG TCO2 35.8 MMOL/L (23-27); Pt O2 Delivery Device Other
[2018-10-22] MEDS ORDERED: CARBOXYMETHYLCELLULOSE 1% OPH SOLN BOTH EYES PRN (12:35)
[2018-10-22] MEDS ORDERED: TRIAMTERENE/HCTZ 37.5-25 MG CAPSULE PEG PRN (12:35)
[2018-10-22 12:36] LABS: ABG PCO2 69.2 MM HG (35-48)
[2018-10-22] MEDS ORDERED: BENZONATATE 100 MG CAPSULE PO PRN (12:39)
[2018-10-22] MEDS ORDERED: NITROGLYCERIN SL 0.4 MG TABLET SL PRN (12:39)
[2018-10-22 12:40] LABS: Risk Ratio 1.85; Thyroid Stimulating Hormone 4.23 uIU/ml (0.358-3.74); VLDL CHOLESTEROL 15.8 MG/DL
[2018-10-22] MEDS: methylPREDNISolone SOD SUC 125 MG/2 ML VIAL IV SCH ×2 (13:55→21:47)
[2018-10-22] MEDS: LEVOFLOXACIN INJ 500 MG in PREMIX 1 EACH IV SCH (14:03)
[2018-10-22] MEDS: ALBUTEROL/IPRATROPIUM 3 ML NEB RESP TX SCH ×2 (14:10→18:40)
[2018-10-22 14:12] LABS: Troponin I 0.016 NG/ML (0.00-0.045)
[2018-10-22] MEDS ORDERED: prednisoLONE ACETATE 1% OPH SUSP 5 ML BOTTLE ONE (15:01)
[2018-10-22] MEDS: prednisoLONE ACETATE 1% OPH SUSP 5 ML BOTTLE LEFT EYE SCH ×3 (15:02→21:50)
[2018-10-22] MEDS: PIPERACILLIN/TAZOBACTAM 3,375 MG in SODIUM CHLORIDE 0.9% 100 ML IV SCH (17:38)
[2018-10-22] MEDS: THEOPHYLLINE 5.33 MG/ML 30 ML/BOTTLE PEG SCH (21:49)
[2018-10-22] MEDS: METOPROLOL TARTRATE 50 MG TABLET PEG SCH (21:50)
[2018-10-22] MEDS: ENOXAPARIN 40 MG/0.4 ML SYRINGE SUBCUT SCH (21:50)
[2018-10-22] MEDS: cycloSPORINE OPH EMUL 1 VIAL BOTH EYES SCH (21:50)
[2018-10-23] MEDS: ALBUTEROL/IPRATROPIUM 3 ML NEB RESP TX SCH ×7 (00:13→23:38)
[2018-10-23 00:37] LABS: Troponin I < 0.015 NG/ML (0.00-0.045)
[2018-10-23] MEDS: PIPERACILLIN/TAZOBACTAM 3,375 MG in SODIUM CHLORIDE 0.9% 100 ML IV SCH ×3 (03:48→18:30)
[2018-10-23] MEDS: methylPREDNISolone SOD SUC 125 MG/2 ML VIAL IV SCH ×3 (05:10→21:21)
[2018-10-23 05:12] LABS: Calcium 9.7 MG/DL (8.5-10.1); Osmolality,Calculated 296.4 MOS/KG (273-304); Potassium 4.3 MMOL/L (3.5-5.1)
[2018-10-23 05:29] LABS: Prealbumin 18.5 MG/DL (20-40)
[2018-10-23 06:04] LABS: Basophils % 0.2 % (0.0-0.8); Hematocrit 39.7 VOL% (35.7-47.0); Immature Granulocytes % 0.4 %; Immature Granulocytes Absolute 0.07 #; Lymphocytes # 0.7 10*3/uL (1.4-4.0); Lymphocytes % 3.7 % (21.3-54.2); Mean Corpuscular HGB Conc 30.2 GM/DL (32-36); Mean Corpuscular Hemoglobin 30 PG (27-34); Mean Corpuscular Volume 100.3 FL (87-102); Mean Platelet Volume 11.4 FL (9.6-12.0); Monocytes # 0.1 10*3/uL (0.11-0.8); Monocytes % 0.6 % (1.7-12.7); Neutrophils # 18.9 10*3/uL (1.4-7.4); Neutrophils % 95.1 % (38.7-73.9); Platelet Count 122 T/CUMM (130-400); Red Blood Count 3.96 MC/CUMM (3.8-5.5); Red Cell Distribution Width 15.8 % (9.3-17.3); White Blood Count 19.8 T/CUMM (4-12)
[2018-10-23 06:40] LABS: Band Neutrophils 13 % (0-10); Lymphocytes 2 % (20-55); Segmented Neutrophils 85 % (50-85); Total Cells Counted 100
[2018-10-23 06:41] LABS: Hypochromasia 1+; Macrocytosis Slight
[2018-10-23] MEDS: LEVOTHYROXINE 112 MCG TABLET PEG SCH (07:42)
[2018-10-23] MEDS: MONTELUKAST 10 MG TABLET PEG SCH (09:33)
[2018-10-23] MEDS: ASPIRIN EC 325 MG TABLET PO SCH (09:33)
[2018-10-23] MEDS: CHOLECALCIFEROL 400 UNIT TABLET PEG SCH (09:33)
[2018-10-23] MEDS: METOPROLOL TARTRATE 50 MG TABLET PEG SCH ×2 (09:33→21:21)
[2018-10-23] MEDS: MAGNESIUM OXIDE 400 MG TABLET PEG SCH (09:33)
[2018-10-23] MEDS: ALLOPURINOL 100 MG TABLET PEG SCH (09:33)
[2018-10-23] MEDS: FUROSEMIDE 40 MG/4 ML VIAL IV SCH ×2 (09:34→18:24)
[2018-10-23] MEDS: amLODIPine 5 MG TABLET PEG SCH (09:34)
[2018-10-23] MEDS ORDERED: DEXTROSE 50% 25 GM/50 ML SYRINGE IV PRN (09:41)
[2018-10-23] MEDS ORDERED: GLUCAGON 1 MG VIAL IM PRN (09:41)
[2018-10-23] MEDS: THEOPHYLLINE 5.33 MG/ML 30 ML/BOTTLE PEG SCH ×2 (10:00→21:29)
[2018-10-23] MEDS: cycloSPORINE OPH EMUL 1 VIAL BOTH EYES SCH ×2 (10:01→21:31)
[2018-10-23] MEDS: CLORAZEPATE 3.75 MG TABLET PEG PRN ×2 (10:03→21:21)
[2018-10-23] MEDS: prednisoLONE ACETATE 1% OPH SUSP 5 ML BOTTLE LEFT EYE SCH ×4 (11:08→21:31)
[2018-10-23] MEDS: ROSUVASTATIN 10 MG TABLET PO SCH (11:19)
[2018-10-23] MEDS: LEVOFLOXACIN INJ 500 MG in PREMIX 1 EACH IV SCH ×2 (13:10→14:36)
[2018-10-23] MEDS: INSULIN REGULAR 100 UNIT/ML SUBCUT SCH ×2 (13:11→18:24)
[2018-10-23] MEDS: ENOXAPARIN 40 MG/0.4 ML SYRINGE SUBCUT SCH (21:21)
[2018-10-24] MEDS: INSULIN REGULAR 100 UNIT/ML SUBCUT SCH ×4 (00:05→18:45)
[2018-10-24] MEDS: PIPERACILLIN/TAZOBACTAM 3,375 MG in SODIUM CHLORIDE 0.9% 100 ML IV SCH ×3 (02:17→17:54)
[2018-10-24] MEDS: ALBUTEROL/IPRATROPIUM 3 ML NEB RESP TX SCH ×6 (03:45→23:08)
[2018-10-24] MEDS: methylPREDNISolone SOD SUC 125 MG/2 ML VIAL IV SCH ×3 (04:22→21:28)
[2018-10-24 04:47] LABS: Basophils % 0.2 % (0.0-0.8); Hematocrit 38.7 VOL% (35.7-47.0); Hemoglobin 11.6 GM/DL (12.0-16.0); Immature Granulocytes % 0.4 %; Immature Granulocytes Absolute 0.08 #; Lymphocytes # 0.5 10*3/uL (1.4-4.0); Lymphocytes % 2.8 % (21.3-54.2); Mean Corpuscular Hemoglobin 30 PG (27-34); Mean Corpuscular Volume 101.3 FL (87-102); Mean Platelet Volume 11.7 FL (9.6-12.0); Monocytes # 0.5 10*3/uL (0.11-0.8); Monocytes % 2.6 % (1.7-12.7); Neutrophils # 17.5 10*3/uL (1.4-7.4); Platelet Count 135 T/CUMM (130-400); Red Blood Count 3.82 MC/CUMM (3.8-5.5); Red Cell Distribution Width 15.4 % (9.3-17.3); White Blood Count 18.6 T/CUMM (4-12)
[2018-10-24 05:16] LABS: Band Neutrophils 2 % (0-10); Hypochromasia 1+; Lymphocytes 3 % (20-55); Macrocytosis Slight; Segmented Neutrophils 93 % (50-85); Total Cells Counted 100
[2018-10-24 05:36] LABS: Blood Urea Nitrogen 49 MG/DL (7-18); Calcium 9.5 MG/DL (8.5-10.1); Glucose 153 MG/DL (74-106); Osmolality,Calculated 301.8 MOS/KG (273-304); Potassium 3.1 MMOL/L (3.5-5.1); Sodium 144 MMOL/L (136-145)
[2018-10-24] MEDS: LEVOTHYROXINE 112 MCG TABLET PEG SCH (06:07)
[2018-10-24 07:29] LABS: ABG Base Excess 20.9 MMOL/L (-2.5-2.5); ABG HCO3 45.6 MMOL/L (20-26); ABG Oxygen Saturation 98.4 % (95-100); ABG PH 7.367 (7.35-7.45); ABG TCO2 46.3 MMOL/L (23-27)
[2018-10-24 07:33] LABS: ABG PCO2 90.1 MM HG (35-48)
[2018-10-24] MEDS ORDERED: FUROSEMIDE 20 MG/2 ML VIAL ONE (08:23)
[2018-10-24] MEDS: MONTELUKAST 10 MG TABLET PEG SCH (09:05)
[2018-10-24] MEDS: amLODIPine 5 MG TABLET PEG SCH (09:05)
[2018-10-24] MEDS: POTASSIUM CHLORIDE 20 MEQ/15 ML UDCUP PEG SCH ×3 (09:05→17:30)
[2018-10-24] MEDS: METOPROLOL TARTRATE 50 MG TABLET PEG SCH ×2 (09:05→21:27)
[2018-10-24] MEDS: FUROSEMIDE 40 MG/4 ML VIAL IV SCH ×2 (09:05→17:30)
[2018-10-24] MEDS: CHOLECALCIFEROL 400 UNIT TABLET PEG SCH (09:05)
[2018-10-24] MEDS: MAGNESIUM OXIDE 400 MG TABLET PEG SCH (09:05)
[2018-10-24] MEDS: CLORAZEPATE 3.75 MG TABLET PEG PRN ×3 (09:05→21:27)
[2018-10-24] MEDS: ROSUVASTATIN 10 MG TABLET PO SCH (09:05)
[2018-10-24] MEDS: ASPIRIN EC 325 MG TABLET PO SCH (09:05)
[2018-10-24] MEDS: ALLOPURINOL 100 MG TABLET PEG SCH (09:05)
[2018-10-24] MEDS: cycloSPORINE OPH EMUL 1 VIAL BOTH EYES SCH ×2 (09:06→21:39)
[2018-10-24] MEDS: THEOPHYLLINE 5.33 MG/ML 30 ML/BOTTLE PEG SCH ×2 (09:06→21:35)
[2018-10-24] MEDS: prednisoLONE ACETATE 1% OPH SUSP 5 ML BOTTLE LEFT EYE SCH ×4 (09:07→21:38)
[2018-10-24] MEDS: LEVOFLOXACIN INJ 500 MG in PREMIX 1 EACH IV SCH (15:05)
[2018-10-24] MEDS: ENOXAPARIN 40 MG/0.4 ML SYRINGE SUBCUT SCH (21:27)
[2018-10-25] MEDS: INSULIN REGULAR 100 UNIT/ML SUBCUT SCH ×4 (00:06→18:22)
[2018-10-25] MEDS: PIPERACILLIN/TAZOBACTAM 3,375 MG in SODIUM CHLORIDE 0.9% 100 ML IV SCH ×3 (02:40→18:23)
[2018-10-25] MEDS: ALBUTEROL/IPRATROPIUM 3 ML NEB RESP TX SCH ×5 (03:34→19:13)
[2018-10-25] MEDS: methylPREDNISolone SOD SUC 125 MG/2 ML VIAL IV SCH ×3 (04:27→21:53)
[2018-10-25 04:40] LABS: Basophils % 0.1 % (0.0-0.8); Immature Granulocytes % 0.4 %; Immature Granulocytes Absolute 0.06 #; Lymphocytes # 0.4 10*3/uL (1.4-4.0); Lymphocytes % 2.7 % (21.3-54.2); Mean Corpuscular HGB Conc 28.8 GM/DL (32-36); Mean Corpuscular Hemoglobin 30 PG (27-34); Mean Corpuscular Volume 103.2 FL (87-102); Mean Platelet Volume 11.5 FL (9.6-12.0); Monocytes # 0.5 10*3/uL (0.11-0.8); Monocytes % 3.3 % (1.7-12.7); Neutrophils # 14.3 10*3/uL (1.4-7.4); Neutrophils % 93.5 % (38.7-73.9); Platelet Count 103 T/CUMM (130-400); Red Blood Count 4.04 MC/CUMM (3.8-5.5); Red Cell Distribution Width 15.3 % (9.3-17.3); White Blood Count 15.3 T/CUMM (4-12)
[2018-10-25 04:43] LABS: Hematocrit 41.7 VOL% (35.7-47.0)
[2018-10-25 05:10] LABS: Hypochromasia Slight; Lymphocytes 1 % (20-55); Platelet Estimate Decreased; Segmented Neutrophils 98 % (50-85); Total Cells Counted 100
[2018-10-25 05:35] LABS: Blood Urea Nitrogen 58 MG/DL (7-18); Calcium 10.3 MG/DL (8.5-10.1); Glucose 225 MG/DL (74-106); Osmolality,Calculated 314.4 MOS/KG (273-304); Potassium 3.5 MMOL/L (3.5-5.1); Sodium 147 MMOL/L (136-145)
[2018-10-25] MEDS: LEVOTHYROXINE 112 MCG TABLET PEG SCH (06:23)
[2018-10-25] MEDS: MAGNESIUM OXIDE 400 MG TABLET PEG SCH (08:58)
[2018-10-25] MEDS: METOPROLOL TARTRATE 50 MG TABLET PEG SCH ×2 (08:58→21:53)
[2018-10-25] MEDS: MONTELUKAST 10 MG TABLET PEG SCH (08:58)
[2018-10-25] MEDS: CHOLECALCIFEROL 400 UNIT TABLET PEG SCH (08:58)
[2018-10-25] MEDS: amLODIPine 5 MG TABLET PEG SCH (08:58)
[2018-10-25] MEDS: ALLOPURINOL 100 MG TABLET PEG SCH (08:58)
[2018-10-25] MEDS: prednisoLONE ACETATE 1% OPH SUSP 5 ML BOTTLE LEFT EYE SCH ×4 (08:58→21:57)
[2018-10-25] MEDS: ROSUVASTATIN 10 MG TABLET PO SCH (08:58)
[2018-10-25] MEDS: ASPIRIN EC 325 MG TABLET PO SCH (08:59)
[2018-10-25] MEDS: THEOPHYLLINE 5.33 MG/ML 30 ML/BOTTLE PEG SCH (08:59)
[2018-10-25] MEDS: FUROSEMIDE 40 MG/4 ML VIAL IV SCH (09:06)
[2018-10-25 09:10] LABS: ABG Base Excess 25.1 MMOL/L (-2.5-2.5); ABG HCO3 50.7 MMOL/L (20-26); ABG PH 7.394 (7.35-7.45); ABG PO2 97.2 MM HG (80-95); Allen Test Positive; Pt O2 Delivery Device Other
[2018-10-25] MEDS: cycloSPORINE OPH EMUL 1 VIAL BOTH EYES SCH ×2 (09:29→21:55)
[2018-10-25] MEDS ORDERED: LIDOCAINE 1% 20 ML VIAL MISC INJ ONE (10:02)
[2018-10-25] MEDS ORDERED: LIDOCAINE 2% VISCOUS 100 ML BOTTLE SWISH/SPIT ONE (10:02)
[2018-10-25] MEDS ORDERED: LIDOCAINE 2% 20 ML VIAL RESP TX ONE (10:02)
[2018-10-25 10:21] LABS: ABG Base Excess 26.6 MMOL/L (-2.5-2.5); ABG HCO3 52.3 MMOL/L (20-26); ABG Oxygen Saturation 94.4 % (95-100); ABG PH 7.422 (7.35-7.45); ABG TCO2 50.9 MMOL/L (23-27); Allen Test Positive; Pt O2 Delivery Device Other
[2018-10-25 10:25] LABS: ABG PCO2 88.8 MM HG (35-48)
[2018-10-25 10:34] LABS: INR 0.9; PT Patient Result 9.9 SECS; Partial Thromboplastin Time 25.8 SECS (0-40)
[2018-10-25] MEDS: DEXTROSE 5% NACL 0.45% 1,000 ML IV SCH (11:14)
[2018-10-25] MEDS: LEVOFLOXACIN INJ 500 MG in PREMIX 1 EACH IV SCH (15:21)
[2018-10-25] MEDS: ENOXAPARIN 40 MG/0.4 ML SYRINGE SUBCUT SCH (21:53)
[2018-10-25] MEDS: CLORAZEPATE 3.75 MG TABLET PEG PRN (21:53)
[2018-10-26] MEDS: INSULIN REGULAR 100 UNIT/ML SUBCUT SCH ×4 (00:28→18:14)
[2018-10-26] MEDS: ALBUTEROL/IPRATROPIUM 3 ML NEB RESP TX SCH ×6 (00:30→19:45)
[2018-10-26] MEDS: PIPERACILLIN/TAZOBACTAM 3,375 MG in SODIUM CHLORIDE 0.9% 100 ML IV SCH ×3 (02:15→17:58)
[2018-10-26 04:07] LABS: Allen Test Positive; Pt O2 Delivery Device Other
[2018-10-26 04:18] LABS: ABG HCO3 46.9 MMOL/L (20-26); ABG PH 7.348 (7.35-7.45)
[2018-10-26 04:21] LABS: ABG PCO2 98.4 MM HG (35-48)
[2018-10-26 05:36] LABS: Basophils % 0.2 % (0.0-0.8); Hematocrit 42.4 VOL% (35.7-47.0); Immature Granulocytes % 0.7 %; Immature Granulocytes Absolute 0.04 #; Lymphocytes # 0.3 10*3/uL (1.4-4.0); Lymphocytes % 5.8 % (21.3-54.2); Mean Corpuscular HGB Conc 28.8 GM/DL (32-36); Mean Corpuscular Hemoglobin 30 PG (27-34); Mean Corpuscular Volume 103.9 FL (87-102); Monocytes # 0.2 10*3/uL (0.11-0.8); Monocytes % 3.9 % (1.7-12.7); Neutrophils # 5.1 10*3/uL (1.4-7.4); Neutrophils % 89.4 % (38.7-73.9); Platelet Count 105 T/CUMM (130-400); Red Blood Count 4.08 MC/CUMM (3.8-5.5); Red Cell Distribution Width 15.1 % (9.3-17.3); White Blood Count 5.7 T/CUMM (4-12)
[2018-10-26 05:39] LABS: Hemoglobin 12.2 GM/DL (12.0-16.0)
[2018-10-26] MEDS: LEVOTHYROXINE 112 MCG TABLET PEG SCH (05:56)
[2018-10-26] MEDS: methylPREDNISolone SOD SUC 125 MG/2 ML VIAL IV SCH ×3 (05:56→21:37)
[2018-10-26 06:03] LABS: Platelet Estimate Decreased
[2018-10-26 06:29] LABS: Blood Urea Nitrogen 63 MG/DL (7-18); Calcium 10.1 MG/DL (8.5-10.1); Glucose 195 MG/DL (74-106); Osmolality,Calculated 314.4 MOS/KG (273-304); Sodium 147 MMOL/L (136-145)
[2018-10-26] MEDS: ALLOPURINOL 100 MG TABLET PEG SCH (08:15)
[2018-10-26] MEDS: CHOLECALCIFEROL 400 UNIT TABLET PEG SCH (08:15)
[2018-10-26] MEDS: prednisoLONE ACETATE 1% OPH SUSP 5 ML BOTTLE LEFT EYE SCH ×4 (08:15→21:37)
[2018-10-26] MEDS: MONTELUKAST 10 MG TABLET PEG SCH (08:15)
[2018-10-26] MEDS: ASPIRIN EC 325 MG TABLET PO SCH (08:15)
[2018-10-26] MEDS: METOPROLOL TARTRATE 50 MG TABLET PEG SCH ×2 (08:15→21:37)
[2018-10-26] MEDS: cycloSPORINE OPH EMUL 1 VIAL BOTH EYES SCH ×2 (08:15→21:37)
[2018-10-26] MEDS: THEOPHYLLINE 5.33 MG/ML 30 ML/BOTTLE PEG SCH ×3 (08:16→21:37)
[2018-10-26] MEDS: MAGNESIUM OXIDE 400 MG TABLET PEG SCH (08:16)
[2018-10-26] MEDS: amLODIPine 5 MG TABLET PEG SCH (08:16)
[2018-10-26] MEDS: ROSUVASTATIN 10 MG TABLET PO SCH (08:16)
[2018-10-26] MEDS ORDERED: POTASSIUM CHLORIDE 20 MEQ/15 ML UDCUP PEG ONE (09:00)
[2018-10-26] MEDS: DEXTROSE 5% NACL 0.45% 1,000 ML IV SCH ×4 (09:17→23:53)
[2018-10-26 09:45] LABS: ABG Base Excess 20.8 MMOL/L (-2.5-2.5); ABG HCO3 45.3 MMOL/L (20-26); ABG Oxygen Saturation 91.3 % (95-100); ABG PH 7.356 (7.35-7.45); ABG TCO2 46.4 MMOL/L (23-27); Allen Test Positive
[2018-10-26 09:46] LABS: ABG PCO2 93.8 MM HG (35-48)
[2018-10-26] MEDS: DORNASE ALFA 2.5 MG/2.5 ML VIAL RESP TX SCH ×2 (11:26→19:45)
[2018-10-26] MEDS: LEVOFLOXACIN INJ 500 MG in PREMIX 1 EACH IV SCH (14:33)
[2018-10-26] MEDS: CLORAZEPATE 3.75 MG TABLET PEG PRN (20:17)
[2018-10-26] MEDS: ENOXAPARIN 40 MG/0.4 ML SYRINGE SUBCUT SCH (21:37)
[2018-10-27] MEDS: ALBUTEROL/IPRATROPIUM 3 ML NEB RESP TX SCH ×7 (00:32→22:26)
[2018-10-27] MEDS: INSULIN REGULAR 100 UNIT/ML SUBCUT SCH ×4 (00:36→17:38)
[2018-10-27] MEDS: DEXTROSE 5% NACL 0.45% 1,000 ML IV SCH (02:35)
[2018-10-27] MEDS: PIPERACILLIN/TAZOBACTAM 3,375 MG in SODIUM CHLORIDE 0.9% 100 ML IV SCH ×3 (02:41→17:27)
[2018-10-27 04:21] LABS: ABG Base Excess 15.4 MMOL/L (-2.5-2.5); ABG HCO3 39.3 MMOL/L (20-26); ABG Oxygen Saturation 95.6 % (95-100); ABG PO2 76.8 MM HG (80-95); ABG TCO2 40.9 MMOL/L (23-27); Allen Test Positive
[2018-10-27 04:24] LABS: ABG PCO2 85.1 MM HG (35-48)
[2018-10-27 04:54] LABS: Calcium 9.8 MG/DL (8.5-10.1); Osmolality,Calculated 313.4 MOS/KG (273-304); Potassium 2.9 MMOL/L (3.5-5.1)
[2018-10-27 05:02] LABS: Hemoglobin 11.9 GM/DL (12.0-16.0); Immature Granulocytes % 0.4 %; Immature Granulocytes Absolute 0.02 #; Lymphocytes # 0.3 10*3/uL (1.4-4.0); Lymphocytes % 6.2 % (21.3-54.2); Mean Corpuscular HGB Conc 29.8 GM/DL (32-36); Mean Corpuscular Hemoglobin 30 PG (27-34); Mean Corpuscular Volume 102.3 FL (87-102); Mean Platelet Volume 11.5 FL (9.6-12.0); Monocytes # 0.1 10*3/uL (0.11-0.8); Neutrophils # 4.6 10*3/uL (1.4-7.4); Neutrophils % 91.4 % (38.7-73.9); Platelet Count 161 T/CUMM (130-400); Red Blood Count 3.91 MC/CUMM (3.8-5.5); Red Cell Distribution Width 14.8 % (9.3-17.3)
[2018-10-27 05:06] LABS: Band Neutrophils 3 % (0-10); Hypochromasia 1+; Lymphocytes 6 % (20-55); Segmented Neutrophils 90 % (50-85); Total Cells Counted 100
[2018-10-27 05:08] LABS: Macrocytosis Slight
[2018-10-27] MEDS ORDERED: POTASSIUM CHLORIDE 20 MEQ TABLET PO PRN (05:14)
[2018-10-27] MEDS: methylPREDNISolone SOD SUC 125 MG/2 ML VIAL IV SCH ×3 (05:52→20:39)
[2018-10-27] MEDS: LEVOTHYROXINE 112 MCG TABLET PEG SCH (05:53)
[2018-10-27] MEDS: DORNASE ALFA 2.5 MG/2.5 ML VIAL RESP TX SCH ×2 (07:57→19:10)
[2018-10-27] MEDS ORDERED: LIDOCAINE 1% 20 ML VIAL MISC INJ ONE (08:30)
[2018-10-27] MEDS ORDERED: LIDOCAINE 2% 20 ML VIAL RESP TX ONE (08:30)
[2018-10-27] MEDS ORDERED: LIDOCAINE 2% VISCOUS 100 ML BOTTLE SWISH/SPIT ONE (08:30)
[2018-10-27] MEDS: METOPROLOL TARTRATE 50 MG TABLET PEG SCH ×2 (09:06→20:38)
[2018-10-27] MEDS: amLODIPine 5 MG TABLET PEG SCH (09:06)
[2018-10-27] MEDS: prednisoLONE ACETATE 1% OPH SUSP 5 ML BOTTLE LEFT EYE SCH ×4 (09:06→20:38)
[2018-10-27] MEDS: ASPIRIN EC 325 MG TABLET PO SCH (09:06)
[2018-10-27] MEDS: ROSUVASTATIN 10 MG TABLET PO SCH (09:06)
[2018-10-27] MEDS: CHOLECALCIFEROL 400 UNIT TABLET PEG SCH (09:06)
[2018-10-27] MEDS: MAGNESIUM OXIDE 400 MG TABLET PEG SCH (09:06)
[2018-10-27] MEDS: cycloSPORINE OPH EMUL 1 VIAL BOTH EYES SCH ×2 (09:06→20:38)
[2018-10-27] MEDS: MONTELUKAST 10 MG TABLET PEG SCH (09:06)
[2018-10-27] MEDS: THEOPHYLLINE 5.33 MG/ML 30 ML/BOTTLE PEG SCH ×3 (09:06→20:49)
[2018-10-27] MEDS: ALLOPURINOL 100 MG TABLET PEG SCH (09:07)
[2018-10-27] MEDS ORDERED: POTASSIUM CHLORIDE 20 MEQ/15 ML UDCUP PER TUBE ONE ×2 (10:00→13:00)
[2018-10-27] MEDS ORDERED: DEXT 5% NACL 0.45% KCL 40 MEQ 40 MEQ/1,000 ML BAG IV SCH (10:30)
[2018-10-27] MEDS: CLORAZEPATE 3.75 MG TABLET PEG PRN ×2 (12:33→20:38)
[2018-10-27] MEDS: LEVOFLOXACIN INJ 500 MG in PREMIX 1 EACH IV SCH (14:50)
[2018-10-27] MEDS: DEXTROSE 5% NACL 0.9% 1,000 ML IV SCH (17:25)
[2018-10-27] MEDS: ENOXAPARIN 40 MG/0.4 ML SYRINGE SUBCUT SCH (20:38)
[2018-10-28] MEDS: INSULIN REGULAR 100 UNIT/ML SUBCUT SCH ×4 (01:17→19:13)
[2018-10-28] MEDS: PIPERACILLIN/TAZOBACTAM 3,375 MG in SODIUM CHLORIDE 0.9% 100 ML IV SCH ×3 (01:18→19:13)
[2018-10-28] MEDS: ALBUTEROL/IPRATROPIUM 3 ML NEB RESP TX SCH ×2 (02:30→06:58)
[2018-10-28 03:36] LABS: ABG Base Excess 11.5 MMOL/L (-2.5-2.5); ABG HCO3 40.5 MMOL/L (20-26); ABG Oxygen Saturation 94.7 % (95-100); ABG PH 7.324 (7.35-7.45); ABG PO2 76.3 MM HG (80-95); ABG TCO2 42.9 MMOL/L (23-27); Allen Test Positive
[2018-10-28 03:43] LABS: ABG PCO2 79.6 MM HG (35-48)
[2018-10-28 04:30] LABS: Calcium 9.1 MG/DL (8.5-10.1); Osmolality,Calculated 319.7 MOS/KG (273-304)
[2018-10-28] MEDS: methylPREDNISolone SOD SUC 125 MG/2 ML VIAL IV SCH ×3 (06:24→21:23)
[2018-10-28] MEDS: DEXTROSE 5% NACL 0.9% 1,000 ML IV SCH (06:25)
[2018-10-28] MEDS: LEVOTHYROXINE 112 MCG TABLET PEG SCH (06:32)
[2018-10-28] MEDS: DORNASE ALFA 2.5 MG/2.5 ML VIAL RESP TX SCH ×2 (06:58→20:23)
[2018-10-28] MEDS: MAGNESIUM OXIDE 400 MG TABLET PEG SCH (08:11)
[2018-10-28] MEDS: METOPROLOL TARTRATE 50 MG TABLET PEG SCH ×2 (08:11→21:38)
[2018-10-28] MEDS: ROSUVASTATIN 10 MG TABLET PO SCH (08:11)
[2018-10-28] MEDS: amLODIPine 5 MG TABLET PEG SCH (08:11)
[2018-10-28] MEDS: CHOLECALCIFEROL 400 UNIT TABLET PEG SCH (08:12)
[2018-10-28] MEDS: prednisoLONE ACETATE 1% OPH SUSP 5 ML BOTTLE LEFT EYE SCH ×4 (08:12→22:26)
[2018-10-28] MEDS: MONTELUKAST 10 MG TABLET PEG SCH (08:12)
[2018-10-28] MEDS: ALLOPURINOL 100 MG TABLET PEG SCH (08:12)
[2018-10-28] MEDS: cycloSPORINE OPH EMUL 1 VIAL BOTH EYES SCH ×2 (08:12→22:26)
[2018-10-28] MEDS: THEOPHYLLINE 5.33 MG/ML 30 ML/BOTTLE PEG SCH ×3 (08:13→22:17)
[2018-10-28] MEDS: ASPIRIN EC 325 MG TABLET PO SCH (08:13)
[2018-10-28] MEDS: DEXTROSE 5% 1,000 ML IV SCH (10:09)
[2018-10-28] MEDS: LEVALBUTEROL 1.25 MG/3 ML NEB RESP TX SCH ×4 (10:55→23:52)
[2018-10-28] MEDS: IPRATROPIUM 500 MCG/2.5 ML NEB RESP TX SCH ×4 (10:55→23:52)
[2018-10-28] MEDS: LEVOFLOXACIN INJ 500 MG in PREMIX 1 EACH IV SCH (14:16)
[2018-10-28] MEDS: CLORAZEPATE 3.75 MG TABLET PEG PRN ×2 (15:07→21:38)
[2018-10-28] MEDS: ENOXAPARIN 40 MG/0.4 ML SYRINGE SUBCUT SCH (21:38)
[2018-10-29] MEDS: INSULIN REGULAR 100 UNIT/ML SUBCUT SCH ×4 (01:30→17:54)
[2018-10-29] MEDS: PIPERACILLIN/TAZOBACTAM 3,375 MG in SODIUM CHLORIDE 0.9% 100 ML IV SCH ×3 (01:30→17:54)
[2018-10-29 03:34] LABS: ABG Base Excess 5.8 MMOL/L (-2.5-2.5); ABG HCO3 29.6 MMOL/L (20-26); ABG Oxygen Saturation 95.8 % (95-100); ABG PO2 84.9 MM HG (80-95); ABG TCO2 35.8 MMOL/L (23-27); Allen Test Positive
[2018-10-29] MEDS: LEVALBUTEROL 1.25 MG/3 ML NEB RESP TX SCH ×5 (03:35→19:21)
[2018-10-29] MEDS: IPRATROPIUM 500 MCG/2.5 ML NEB RESP TX SCH ×5 (03:35→19:21)
[2018-10-29 03:37] LABS: ABG PH 7.177 (7.35-7.45)
[2018-10-29] MEDS: methylPREDNISolone SOD SUC 125 MG/2 ML VIAL IV SCH ×3 (05:11→22:16)
[2018-10-29] MEDS: DEXTROSE 5% 1,000 ML IV SCH ×2 (05:13→15:01)
[2018-10-29] MEDS: LEVOTHYROXINE 112 MCG TABLET PEG SCH (06:00)
[2018-10-29 06:38] LABS: INR 0.9; Partial Thromboplastin Time 25.9 SECS (0-40)
[2018-10-29 06:48] LABS: Calcium 9.5 MG/DL (8.5-10.1); Osmolality,Calculated 314.9 MOS/KG (273-304); Potassium 4.2 MMOL/L (3.5-5.1)
[2018-10-29 07:06] LABS: Hemoglobin 11.5 GM/DL (12.0-16.0)
[2018-10-29] MEDS: DORNASE ALFA 2.5 MG/2.5 ML VIAL RESP TX SCH ×2 (07:11→19:21)
[2018-10-29 07:26] LABS: Basophils % 0.1 % (0.0-0.8); Hematocrit 40.5 VOL% (35.7-47.0); Immature Granulocytes Absolute 0.16 #; Lymphocytes # 0.5 10*3/uL (1.4-4.0); Lymphocytes % 6.9 % (21.3-54.2); Mean Corpuscular HGB Conc 28.4 GM/DL (32-36); Mean Corpuscular Hemoglobin 30 PG (27-34); Mean Corpuscular Volume 104.9 FL (87-102); Mean Platelet Volume 10.8 FL (9.6-12.0); Monocytes # 0.2 10*3/uL (0.11-0.8); Monocytes % 2.3 % (1.7-12.7); Neutrophils # 6.9 10*3/uL (1.4-7.4); Neutrophils % 88.7 % (38.7-73.9); Red Blood Count 3.86 MC/CUMM (3.8-5.5); Red Cell Distribution Width 15.5 % (9.3-17.3)
[2018-10-29 07:27] LABS: Platelet Count 203 T/CUMM (130-400); White Blood Count 7.8 T/CUMM (4-12)
[2018-10-29 08:03] LABS: ABG Base Excess 6.9 MMOL/L (-2.5-2.5); ABG HCO3 30.4 MMOL/L (20-26); ABG PH 7.263 (7.35-7.45); ABG PO2 48.2 MM HG (80-95); ABG TCO2 33.9 MMOL/L (23-27)
[2018-10-29] MEDS ORDERED: LIDOCAINE 1% 20 ML VIAL MISC INJ ONE (08:30)
[2018-10-29] MEDS ORDERED: LIDOCAINE 2% 20 ML VIAL RESP TX ONE (08:30)
[2018-10-29] MEDS ORDERED: LIDOCAINE 2% VISCOUS 100 ML BOTTLE SWISH/SPIT ONE (08:30)
[2018-10-29] MEDS: ALLOPURINOL 100 MG TABLET PEG SCH (11:55)
[2018-10-29] MEDS: METOPROLOL TARTRATE 50 MG TABLET PEG SCH ×2 (11:55→22:18)
[2018-10-29] MEDS: cycloSPORINE OPH EMUL 1 VIAL BOTH EYES SCH ×2 (11:55→22:18)
[2018-10-29] MEDS: ROSUVASTATIN 10 MG TABLET PO SCH (11:55)
[2018-10-29] MEDS: CHOLECALCIFEROL 400 UNIT TABLET PEG SCH (11:55)
[2018-10-29] MEDS: amLODIPine 5 MG TABLET PEG SCH (11:55)
[2018-10-29] MEDS: THEOPHYLLINE 5.33 MG/ML 30 ML/BOTTLE PEG SCH ×3 (11:55→22:18)
[2018-10-29] MEDS: ASPIRIN EC 325 MG TABLET PO SCH (11:55)
[2018-10-29] MEDS: MAGNESIUM OXIDE 400 MG TABLET PEG SCH (11:55)
[2018-10-29] MEDS: MONTELUKAST 10 MG TABLET PEG SCH (11:55)
[2018-10-29] MEDS: prednisoLONE ACETATE 1% OPH SUSP 5 ML BOTTLE LEFT EYE SCH ×4 (13:00→22:22)
[2018-10-29] MEDS: LEVOFLOXACIN INJ 500 MG in PREMIX 1 EACH IV SCH (15:26)
[2018-10-29] MEDS: ENOXAPARIN 40 MG/0.4 ML SYRINGE SUBCUT SCH (22:18)
[2018-10-30] MEDS: INSULIN REGULAR 100 UNIT/ML SUBCUT SCH ×4 (00:01→18:33)
[2018-10-30] MEDS: IPRATROPIUM 500 MCG/2.5 ML NEB RESP TX SCH ×7 (00:54→22:54)
[2018-10-30] MEDS: LEVALBUTEROL 1.25 MG/3 ML NEB RESP TX SCH ×7 (00:54→22:54)
[2018-10-30] MEDS: DEXTROSE 5% 1,000 ML IV SCH ×4 (01:46→22:33)
[2018-10-30] MEDS: PIPERACILLIN/TAZOBACTAM 3,375 MG in SODIUM CHLORIDE 0.9% 100 ML IV SCH (01:54)
[2018-10-30 04:00] LABS: ABG Base Excess 6.6 MMOL/L (-2.5-2.5); ABG HCO3 30.4 MMOL/L (20-26); ABG Oxygen Saturation 95.3 % (95-100); ABG PH 7.234 (7.35-7.45); ABG PO2 78.1 MM HG (80-95); ABG TCO2 34.6 MMOL/L (23-27)
[2018-10-30 04:06] LABS: ABG PCO2 88.9 MM HG (35-48)
[2018-10-30 05:31] LABS: Calcium 8.7 MG/DL (8.5-10.1)
[2018-10-30] MEDS: methylPREDNISolone SOD SUC 125 MG/2 ML VIAL IV SCH ×3 (05:57→20:31)
[2018-10-30] MEDS: LEVOTHYROXINE 112 MCG TABLET PEG SCH (05:58)
[2018-10-30] MEDS: DORNASE ALFA 2.5 MG/2.5 ML VIAL RESP TX SCH ×2 (07:55→19:00)
[2018-10-30] MEDS: ROSUVASTATIN 10 MG TABLET PO SCH (09:24)
[2018-10-30] MEDS: MAGNESIUM OXIDE 400 MG TABLET PEG SCH (09:24)
[2018-10-30] MEDS: METOPROLOL TARTRATE 50 MG TABLET PEG SCH ×2 (09:24→20:30)
[2018-10-30] MEDS: ASPIRIN EC 325 MG TABLET PO SCH (09:24)
[2018-10-30] MEDS: THEOPHYLLINE 5.33 MG/ML 30 ML/BOTTLE PEG SCH ×3 (09:24→20:31)
[2018-10-30] MEDS: amLODIPine 5 MG TABLET PEG SCH (09:24)
[2018-10-30] MEDS: ALLOPURINOL 100 MG TABLET PEG SCH (09:25)
[2018-10-30] MEDS: MONTELUKAST 10 MG TABLET PEG SCH (09:25)
[2018-10-30] MEDS: cycloSPORINE OPH EMUL 1 VIAL BOTH EYES SCH ×2 (09:25→20:34)
[2018-10-30] MEDS: prednisoLONE ACETATE 1% OPH SUSP 5 ML BOTTLE LEFT EYE SCH ×4 (09:25→20:34)
[2018-10-30] MEDS: CHOLECALCIFEROL 400 UNIT TABLET PEG SCH (09:25)
[2018-10-30] MEDS: HydrOXYzine PAMOATE 25 MG CAPSULE PO PRN (20:30)
[2018-10-30] MEDS: ENOXAPARIN 40 MG/0.4 ML SYRINGE SUBCUT SCH (20:31)
[2018-10-31] MEDS: INSULIN REGULAR 100 UNIT/ML SUBCUT SCH ×5 (00:09→23:37)
[2018-10-31] MEDS: IPRATROPIUM 500 MCG/2.5 ML NEB RESP TX SCH ×6 (02:36→23:07)
[2018-10-31] MEDS: LEVALBUTEROL 1.25 MG/3 ML NEB RESP TX SCH ×6 (02:36→23:02)
[2018-10-31 05:01] LABS: Allen Test Positive; Pt O2 Delivery Device Room Air
[2018-10-31 05:02] LABS: ABG Base Excess 10.5 MMOL/L (-2.5-2.5); ABG HCO3 37.7 MMOL/L (20-26); ABG PCO2 63.1 MM HG (35-48); ABG PH 7.394 (7.35-7.45); ABG PO2 54.7 MM HG (80-95); ABG TCO2 39.6 MMOL/L (23-27)
[2018-10-31 06:13] LABS: Osmolality,Calculated 295.4 MOS/KG (273-304)
[2018-10-31] MEDS ORDERED: ETOMIDATE 20 MG/10 ML VIAL IV ONE ×2 (06:26→06:33)
[2018-10-31] MEDS ORDERED: SUCCINYLCHOLINE 200 MG/10 ML VIAL ONE (06:27)
[2018-10-31] MEDS ORDERED: PROPOFOL 1,000 MG/100 ML BOTTLE IV ONE (06:35)
[2018-10-31] MEDS: PROPOFOL 1,000 MG/100 ML BOTTLE IV SCH (06:40)
[2018-10-31] MEDS: methylPREDNISolone SOD SUC 125 MG/2 ML VIAL IV SCH ×3 (07:07→20:05)
[2018-10-31] MEDS: LEVOTHYROXINE 112 MCG TABLET PEG SCH (07:08)
[2018-10-31 07:20] LABS: ABG Base Excess 5.8 MMOL/L (-2.5-2.5); ABG HCO3 29.7 MMOL/L (20-26); ABG PH 7.309 (7.35-7.45); ABG TCO2 31.1 MMOL/L (23-27)
[2018-10-31] MEDS: DORNASE ALFA 2.5 MG/2.5 ML VIAL RESP TX SCH ×2 (07:32→19:30)
[2018-10-31] MEDS ORDERED: SODIUM CHLORIDE 0.45% 500 ML IV ONE (07:50)
[2018-10-31] MEDS: SODIUM CHLORIDE 0.45% 1,000 ML IV SCH ×3 (08:19→22:40)
[2018-10-31] MEDS: METOPROLOL TARTRATE 50 MG TABLET PEG SCH ×2 (08:20→20:14)
[2018-10-31] MEDS: amLODIPine 5 MG TABLET PEG SCH (08:21)
[2018-10-31] MEDS: cycloSPORINE OPH EMUL 1 VIAL BOTH EYES SCH ×2 (08:41→20:13)
[2018-10-31] MEDS: prednisoLONE ACETATE 1% OPH SUSP 5 ML BOTTLE LEFT EYE SCH ×4 (08:41→20:13)
[2018-10-31 08:58] LABS: Basophils % 0.1 % (0.0-0.8); Hematocrit 31.7 VOL% (35.7-47.0); Hemoglobin 9.7 GM/DL (12.0-16.0); Immature Granulocytes % 1.1 %; Immature Granulocytes Absolute 0.09 #; Lymphocytes # 0.5 10*3/uL (1.4-4.0); Mean Corpuscular HGB Conc 30.6 GM/DL (32-36); Mean Corpuscular Hemoglobin 30 PG (27-34); Mean Corpuscular Volume 99.4 FL (87-102); Mean Platelet Volume 10.8 FL (9.6-12.0); Monocytes # 0.3 10*3/uL (0.11-0.8); Monocytes % 3.4 % (1.7-12.7); Neutrophils # 7.2 10*3/uL (1.4-7.4); Neutrophils % 89.4 % (38.7-73.9); Platelet Count 137 T/CUMM (130-400); Red Blood Count 3.19 MC/CUMM (3.8-5.5); Red Cell Distribution Width 14.5 % (9.3-17.3)
[2018-10-31 09:05] LABS: Apearance,Urine CLEAR (Clear); Bilirubin,Urine Negative (Negative); Blood, Urine Negative (Negative); Glucose,Urine (UA) Negative (Negative); Ketones,Urine Negative (Negative); Nitrite,Urine Negative (Negative); Protein,Urine Negative; RBC,Urine 1 /HPF (0-4); Urine Color Straw (Yellow); Urine Specific Gravity 1.005 (1.001-1.035); Urine Urobilinogen < 2.0 EU/DL (0.2-1.0); WBC,Urine 1 /HPF (0-6)
[2018-10-31] MEDS: MAGNESIUM OXIDE 400 MG TABLET PEG SCH (09:17)
[2018-10-31] MEDS: CHOLECALCIFEROL 400 UNIT TABLET PEG SCH (09:17)
[2018-10-31] MEDS: THEOPHYLLINE 5.33 MG/ML 30 ML/BOTTLE PEG SCH ×3 (09:17→20:11)
[2018-10-31] MEDS: MONTELUKAST 10 MG TABLET PEG SCH (09:17)
[2018-10-31] MEDS: ALLOPURINOL 100 MG TABLET PEG SCH (09:17)
[2018-10-31] MEDS: ROSUVASTATIN 10 MG TABLET PO SCH (09:17)
[2018-10-31] MEDS ORDERED: SODIUM CHLORIDE 0.9% 500 ML IV ONE ×2 (09:41→12:55)
[2018-10-31] MEDS: PANTOPRAZOLE 40 MG VIAL IV SCH ×2 (10:04→20:08)
[2018-10-31] MEDS: HydrOXYzine PAMOATE 25 MG CAPSULE PO PRN (20:11)
[2018-10-31] MEDS ORDERED: fentaNYL 100 MCG/2 ML VIAL IV SCH (21:00)
[2018-10-31] MEDS: fentaNYL 100 MCG/2 ML VIAL IV PRN (21:25)
[2018-11-01] MEDS: SODIUM CHLORIDE 0.45% 1,000 ML IV SCH ×4 (03:06→19:49)
[2018-11-01] MEDS: IPRATROPIUM 500 MCG/2.5 ML NEB RESP TX SCH ×5 (03:33→19:46)
[2018-11-01] MEDS: LEVALBUTEROL 1.25 MG/3 ML NEB RESP TX SCH ×5 (03:33→19:46)
[2018-11-01] MEDS: PROPOFOL 1,000 MG/100 ML BOTTLE IV SCH ×2 (04:00→06:04)
[2018-11-01 04:39] LABS: Allen Test Positive; Pt O2 Delivery Device Ventilator
[2018-11-01 04:40] LABS: ABG Base Excess 6.3 MMOL/L (-2.5-2.5); ABG HCO3 30.2 MMOL/L (20-26); ABG Oxygen Saturation 99.4 % (95-100); ABG PCO2 43.3 MM HG (35-48); ABG TCO2 28.6 MMOL/L (23-27)
[2018-11-01] MEDS: methylPREDNISolone SOD SUC 125 MG/2 ML VIAL IV SCH ×3 (04:55→20:42)
[2018-11-01] MEDS: INSULIN REGULAR 100 UNIT/ML SUBCUT SCH ×3 (05:25→17:58)
[2018-11-01 05:35] LABS: Hematocrit 26.9 VOL% (35.7-47.0); Hemoglobin 8.7 GM/DL (12.0-16.0); Immature Granulocytes % 0.9 %; Immature Granulocytes Absolute 0.09 #; Lymphocytes # 0.5 10*3/uL (1.4-4.0); Lymphocytes % 5.5 % (21.3-54.2); Mean Corpuscular HGB Conc 32.3 GM/DL (32-36); Mean Corpuscular Hemoglobin 30 PG (27-34); Mean Corpuscular Volume 94.1 FL (87-102); Mean Platelet Volume 11.2 FL (9.6-12.0); Monocytes # 0.2 10*3/uL (0.11-0.8); Monocytes % 1.8 % (1.7-12.7); NRBC # 0.02 10*3/uL; Neutrophils # 8.7 10*3/uL (1.4-7.4); Neutrophils % 91.8 % (38.7-73.9); Platelet Count 151 T/CUMM (130-400); Red Blood Count 2.86 MC/CUMM (3.8-5.5); Red Cell Distribution Width 14.6 % (9.3-17.3); White Blood Count 9.5 T/CUMM (4-12)
[2018-11-01 05:45] LABS: INR 0.9; PT Patient Result 9.9 SECS
[2018-11-01 05:56] LABS: Osmolality,Calculated 296.3 MOS/KG (273-304); Potassium 4.2 MMOL/L (3.5-5.1); Prealbumin 28.1 MG/DL (20-40)
[2018-11-01 06:03] LABS: Band Neutrophils 3 % (0-10); Hypochromasia 1+; Lymphocytes 5 % (20-55); Segmented Neutrophils 91 % (50-85); Total Cells Counted 100
[2018-11-01 06:04] LABS: Microcytosis Slight; Ovalocytes Slight; Platelet Estimate Adequate
[2018-11-01] MEDS: LEVOTHYROXINE 112 MCG TABLET PEG SCH (06:10)
[2018-11-01] MEDS: DORNASE ALFA 2.5 MG/2.5 ML VIAL RESP TX SCH ×2 (07:20→19:46)
[2018-11-01] MEDS ORDERED: LIDOCAINE 2% 20 ML VIAL RESP TX ONE (08:30)
[2018-11-01] MEDS ORDERED: LIDOCAINE 2% VISCOUS 100 ML BOTTLE SWISH/SPIT ONE (08:30)
[2018-11-01] MEDS ORDERED: LIDOCAINE 1% 20 ML VIAL MISC INJ ONE (08:30)
[2018-11-01] MEDS: ROSUVASTATIN 10 MG TABLET PO SCH (08:43)
[2018-11-01] MEDS: METOPROLOL TARTRATE 50 MG TABLET PEG SCH ×2 (08:44→20:31)
[2018-11-01] MEDS: THEOPHYLLINE 5.33 MG/ML 30 ML/BOTTLE PEG SCH ×3 (08:44→20:31)
[2018-11-01] MEDS: MAGNESIUM OXIDE 400 MG TABLET PEG SCH (08:44)
[2018-11-01] MEDS: PANTOPRAZOLE 40 MG VIAL IV SCH ×2 (08:47→20:32)
[2018-11-01] MEDS: amLODIPine 5 MG TABLET PEG SCH (08:47)
[2018-11-01] MEDS: prednisoLONE ACETATE 1% OPH SUSP 5 ML BOTTLE LEFT EYE SCH ×4 (08:47→20:31)
[2018-11-01] MEDS: CHOLECALCIFEROL 400 UNIT TABLET PEG SCH (08:48)
[2018-11-01] MEDS: ALLOPURINOL 100 MG TABLET PEG SCH (08:48)
[2018-11-01] MEDS: cycloSPORINE OPH EMUL 1 VIAL BOTH EYES SCH ×2 (08:48→20:31)
[2018-11-01] MEDS: MONTELUKAST 10 MG TABLET PEG SCH (08:48)
[2018-11-01] MEDS ORDERED: SODIUM CHLORIDE 0.9% 1,000 ML IV PRN (09:41)
[2018-11-01] MEDS: fentaNYL 100 MCG/2 ML VIAL IV PRN ×2 (12:28→20:44)
[2018-11-01] MEDS: HydrOXYzine PAMOATE 25 MG CAPSULE PO PRN (20:31)
[2018-11-02] MEDS: LEVALBUTEROL 1.25 MG/3 ML NEB RESP TX SCH ×7 (00:48→23:34)
[2018-11-02] MEDS: IPRATROPIUM 500 MCG/2.5 ML NEB RESP TX SCH ×7 (00:48→23:34)
[2018-11-02] MEDS: SODIUM CHLORIDE 0.45% 1,000 ML IV SCH ×4 (00:58→20:04)
[2018-11-02] MEDS: INSULIN REGULAR 100 UNIT/ML SUBCUT SCH ×5 (01:08→23:30)
[2018-11-02] MEDS: fentaNYL 100 MCG/2 ML VIAL IV PRN ×4 (03:25→20:41)
[2018-11-02 04:05] LABS: ABG Base Excess 2.2 MMOL/L (-2.5-2.5); ABG HCO3 26.4 MMOL/L (20-26); ABG PCO2 50.2 MM HG (35-48); ABG PH 7.359 (7.35-7.45); ABG TCO2 25.9 MMOL/L (23-27); Allen Test Positive; Pt O2 Delivery Device Ventilator
[2018-11-02] MEDS: methylPREDNISolone SOD SUC 125 MG/2 ML VIAL IV SCH ×3 (05:40→20:46)
[2018-11-02] MEDS: LEVOTHYROXINE 112 MCG TABLET PEG SCH (05:43)
[2018-11-02 05:57] LABS: Hematocrit 25.7 VOL% (35.7-47.0); Hemoglobin 8.5 GM/DL (12.0-16.0); Immature Granulocytes % 1.1 %; Immature Granulocytes Absolute 0.09 #; Lymphocytes # 0.4 10*3/uL (1.4-4.0); Lymphocytes % 5.2 % (21.3-54.2); Mean Corpuscular HGB Conc 33.1 GM/DL (32-36); Mean Corpuscular Hemoglobin 31 PG (27-34); Mean Corpuscular Volume 92.4 FL (87-102); Monocytes # 0.1 10*3/uL (0.11-0.8); Monocytes % 1.4 % (1.7-12.7); Neutrophils # 7.7 10*3/uL (1.4-7.4); Neutrophils % 92.3 % (38.7-73.9); Platelet Count 142 T/CUMM (130-400); Red Blood Count 2.78 MC/CUMM (3.8-5.5); Red Cell Distribution Width 15.8 % (9.3-17.3); White Blood Count 8.3 T/CUMM (4-12)
[2018-11-02 06:04] LABS: Calcium 7.8 MG/DL (8.5-10.1); Osmolality,Calculated 300.1 MOS/KG (273-304); Potassium 4.1 MMOL/L (3.5-5.1)
[2018-11-02 06:25] LABS: Band Neutrophils 3 % (0-10); Hypochromasia 2+; Lymphocytes 5 % (20-55); Ovalocytes Few; Platelet Estimate Decreased; Segmented Neutrophils 90 % (50-85); Total Cells Counted 100
[2018-11-02] MEDS: DORNASE ALFA 2.5 MG/2.5 ML VIAL RESP TX SCH ×2 (06:50→19:35)
[2018-11-02] MEDS: CHOLECALCIFEROL 400 UNIT TABLET PEG SCH (08:51)
[2018-11-02] MEDS: ROSUVASTATIN 10 MG TABLET PO SCH (08:51)
[2018-11-02] MEDS: amLODIPine 5 MG TABLET PEG SCH (08:51)
[2018-11-02] MEDS: HydrOXYzine PAMOATE 25 MG CAPSULE PO PRN ×2 (08:51→20:40)
[2018-11-02] MEDS: ALLOPURINOL 100 MG TABLET PEG SCH (08:51)
[2018-11-02] MEDS: MONTELUKAST 10 MG TABLET PEG SCH (08:51)
[2018-11-02] MEDS: MAGNESIUM OXIDE 400 MG TABLET PEG SCH (08:51)
[2018-11-02] MEDS: METOPROLOL TARTRATE 50 MG TABLET PEG SCH ×2 (08:52→20:40)
[2018-11-02] MEDS: PANTOPRAZOLE 40 MG VIAL IV SCH ×2 (08:52→20:43)
[2018-11-02] MEDS: prednisoLONE ACETATE 1% OPH SUSP 5 ML BOTTLE LEFT EYE SCH ×4 (09:06→20:40)
[2018-11-02] MEDS: cycloSPORINE OPH EMUL 1 VIAL BOTH EYES SCH ×2 (09:06→20:40)
[2018-11-02] MEDS: THEOPHYLLINE 5.33 MG/ML 30 ML/BOTTLE PEG SCH ×3 (09:07→20:40)
[2018-11-02] MEDS: PROPOFOL 1,000 MG/100 ML BOTTLE IV SCH (09:41)
[2018-11-02] MEDS ORDERED: SODIUM CHLORIDE 0.9% 1,000 ML IV PRN (10:35)
[2018-11-03] MEDS: PROPOFOL 1,000 MG/100 ML BOTTLE IV SCH ×3 (01:31→13:24)
[2018-11-03] MEDS: SODIUM CHLORIDE 0.45% 1,000 ML IV SCH ×5 (01:32→22:20)
[2018-11-03] MEDS: fentaNYL 100 MCG/2 ML VIAL IV PRN ×2 (02:34→09:55)
[2018-11-03 03:17] LABS: ABG Base Excess 0.8 MMOL/L (-2.5-2.5); ABG HCO3 25.2 MMOL/L (20-26); ABG Oxygen Saturation 99.3 % (95-100); ABG PCO2 46.8 MM HG (35-48); ABG PH 7.363 (7.35-7.45); Allen Test Positive; Pt O2 Delivery Device Ventilator
[2018-11-03] MEDS: IPRATROPIUM 500 MCG/2.5 ML NEB RESP TX SCH ×5 (03:29→20:07)
[2018-11-03] MEDS: LEVALBUTEROL 1.25 MG/3 ML NEB RESP TX SCH ×5 (03:29→20:07)
[2018-11-03 05:27] LABS: Basophils % 0.1 % (0.0-0.8); Hematocrit 30.3 VOL% (35.7-47.0); Hemoglobin 9.9 GM/DL (12.0-16.0); Immature Granulocytes % 1.4 %; Immature Granulocytes Absolute 0.15 #; Lymphocytes # 0.4 10*3/uL (1.4-4.0); Lymphocytes % 3.5 % (21.3-54.2); Mean Corpuscular HGB Conc 32.7 GM/DL (32-36); Mean Corpuscular Hemoglobin 30 PG (27-34); Mean Corpuscular Volume 91.8 FL (87-102); Mean Platelet Volume 11.8 FL (9.6-12.0); Monocytes # 0.2 10*3/uL (0.11-0.8); Neutrophils # 9.8 10*3/uL (1.4-7.4); Platelet Count 113 T/CUMM (130-400); Red Cell Distribution Width 15.3 % (9.3-17.3); White Blood Count 10.5 T/CUMM (4-12)
[2018-11-03] MEDS: methylPREDNISolone SOD SUC 125 MG/2 ML VIAL IV SCH ×3 (05:34→21:32)
[2018-11-03] MEDS: INSULIN REGULAR 100 UNIT/ML SUBCUT SCH ×3 (05:36→18:04)
[2018-11-03] MEDS: LEVOTHYROXINE 112 MCG TABLET PEG SCH (05:37)
[2018-11-03 05:56] LABS: PT Patient Result 10.5 SECS; Partial Thromboplastin Time 21.9 SECS (0-40)
[2018-11-03 05:57] LABS: Calcium 7.9 MG/DL (8.5-10.1); Osmolality,Calculated 294.3 MOS/KG (273-304); Potassium 3.9 MMOL/L (3.5-5.1)
[2018-11-03 06:10] LABS: Band Neutrophils 1 % (0-10); Hypochromasia 1+; Lymphocytes 7 % (20-55); Segmented Neutrophils 90 % (50-85); Total Cells Counted 100
[2018-11-03 06:11] LABS: Microcytosis Slight
[2018-11-03] MEDS: DORNASE ALFA 2.5 MG/2.5 ML VIAL RESP TX SCH ×2 (07:20→20:07)
[2018-11-03] MEDS: PANTOPRAZOLE 40 MG VIAL IV SCH ×2 (09:45→21:33)
[2018-11-03] MEDS: prednisoLONE ACETATE 1% OPH SUSP 5 ML BOTTLE LEFT EYE SCH ×4 (10:02→21:35)
[2018-11-03] MEDS: cycloSPORINE OPH EMUL 1 VIAL BOTH EYES SCH ×2 (10:02→21:35)
[2018-11-03] MEDS: ALLOPURINOL 100 MG TABLET PEG SCH (10:45)
[2018-11-03] MEDS: amLODIPine 5 MG TABLET PEG SCH (10:46)
[2018-11-03] MEDS: MAGNESIUM OXIDE 400 MG TABLET PEG SCH (10:46)
[2018-11-03] MEDS: ROSUVASTATIN 10 MG TABLET PO SCH (10:46)
[2018-11-03] MEDS: METOPROLOL TARTRATE 50 MG TABLET PEG SCH ×2 (10:46→21:32)
[2018-11-03] MEDS: THEOPHYLLINE 5.33 MG/ML 30 ML/BOTTLE PEG SCH ×3 (10:47→21:35)
[2018-11-03] MEDS: CHOLECALCIFEROL 400 UNIT TABLET PEG SCH (10:47)
[2018-11-03] MEDS: MONTELUKAST 10 MG TABLET PEG SCH (10:47)
[2018-11-04] MEDS: IPRATROPIUM 500 MCG/2.5 ML NEB RESP TX SCH ×7 (00:13→23:23)
[2018-11-04] MEDS: LEVALBUTEROL 1.25 MG/3 ML NEB RESP TX SCH ×7 (00:13→23:23)
[2018-11-04] MEDS: INSULIN REGULAR 100 UNIT/ML SUBCUT SCH ×4 (00:43→18:58)
[2018-11-04] MEDS: SODIUM CHLORIDE 0.45% 1,000 ML IV SCH ×3 (01:36→23:10)
[2018-11-04] MEDS: PROPOFOL 1,000 MG/100 ML BOTTLE IV SCH ×2 (03:42→14:00)
[2018-11-04 05:08] LABS: ABG Base Excess 0.9 MMOL/L (-2.5-2.5); ABG HCO3 26.4 MMOL/L (20-26); ABG Oxygen Saturation 98.4 % (95-100); ABG PCO2 45.8 MM HG (35-48); ABG PH 7.378 (7.35-7.45); ABG PO2 152.8 MM HG (80-95); ABG TCO2 27.8 MMOL/L (23-27); Allen Test Positive; Pt O2 Delivery Device Ventilator
[2018-11-04 05:38] LABS: Basophils % 0.1 % (0.0-0.8); Hematocrit 32.5 VOL% (35.7-47.0); Hemoglobin 10.5 GM/DL (12.0-16.0); Immature Granulocytes % 1.2 %; Immature Granulocytes Absolute 0.12 #; Lymphocytes # 0.3 10*3/uL (1.4-4.0); Lymphocytes % 2.7 % (21.3-54.2); Mean Corpuscular HGB Conc 32.3 GM/DL (32-36); Mean Corpuscular Hemoglobin 30 PG (27-34); Mean Corpuscular Volume 92.6 FL (87-102); Mean Platelet Volume 11.2 FL (9.6-12.0); Monocytes # 0.1 10*3/uL (0.11-0.8); Monocytes % 1.1 % (1.7-12.7); Neutrophils # 9.6 10*3/uL (1.4-7.4); Neutrophils % 94.9 % (38.7-73.9); Platelet Count 183 T/CUMM (130-400); Red Blood Count 3.51 MC/CUMM (3.8-5.5); Red Cell Distribution Width 15.5 % (9.3-17.3); White Blood Count 10.1 T/CUMM (4-12)
[2018-11-04 05:53] LABS: Calcium 7.9 MG/DL (8.5-10.1); Osmolality,Calculated 297.4 MOS/KG (273-304); Potassium 4.4 MMOL/L (3.5-5.1)
[2018-11-04 05:57] LABS: Prealbumin 25.4 MG/DL (20-40)
[2018-11-04] MEDS: methylPREDNISolone SOD SUC 125 MG/2 ML VIAL IV SCH ×3 (06:05→22:35)
[2018-11-04] MEDS: LEVOTHYROXINE 112 MCG TABLET PEG SCH (06:06)
[2018-11-04 06:14] LABS: Lymphocytes 2 % (20-55); Segmented Neutrophils 98 % (50-85); Total Cells Counted 100
[2018-11-04 06:15] LABS: Platelet Estimate Adequate; Polychromasia Few
[2018-11-04] MEDS: DORNASE ALFA 2.5 MG/2.5 ML VIAL RESP TX SCH ×2 (07:06→19:39)
[2018-11-04] MEDS: ALLOPURINOL 100 MG TABLET PEG SCH (09:20)
[2018-11-04] MEDS: prednisoLONE ACETATE 1% OPH SUSP 5 ML BOTTLE LEFT EYE SCH ×4 (09:20→22:42)
[2018-11-04] MEDS: cycloSPORINE OPH EMUL 1 VIAL BOTH EYES SCH ×2 (09:20→23:09)
[2018-11-04] MEDS: ROSUVASTATIN 10 MG TABLET PO SCH (09:20)
[2018-11-04] MEDS: MAGNESIUM OXIDE 400 MG TABLET PEG SCH (09:20)
[2018-11-04] MEDS: MONTELUKAST 10 MG TABLET PEG SCH (09:20)
[2018-11-04] MEDS: CHOLECALCIFEROL 400 UNIT TABLET PEG SCH (09:20)
[2018-11-04] MEDS: THEOPHYLLINE 5.33 MG/ML 30 ML/BOTTLE PEG SCH ×3 (09:20→22:35)
[2018-11-04] MEDS: PANTOPRAZOLE 40 MG VIAL IV SCH ×2 (09:22→22:40)
[2018-11-04] MEDS: METOPROLOL TARTRATE 50 MG TABLET PEG SCH ×2 (11:21→22:40)
[2018-11-04] MEDS: amLODIPine 5 MG TABLET PEG SCH (11:22)
[2018-11-04] MEDS: cefTRIAXone 1,000 MG in SYRINGE 1 EACH IV SCH (11:50)
[2018-11-05] MEDS: INSULIN REGULAR 100 UNIT/ML SUBCUT SCH ×3 (01:32→11:47)
[2018-11-05] MEDS: IPRATROPIUM 500 MCG/2.5 ML NEB RESP TX SCH ×3 (01:51→11:18)
[2018-11-05] MEDS: LEVALBUTEROL 1.25 MG/3 ML NEB RESP TX SCH ×3 (01:51→11:17)
[2018-11-05 04:15] LABS: Basophils % 0.1 % (0.0-0.8); Hematocrit 33.4 VOL% (35.7-47.0); Hemoglobin 10.8 GM/DL (12.0-16.0); Immature Granulocytes % 1.6 %; Immature Granulocytes Absolute 0.21 #; Lymphocytes # 0.3 10*3/uL (1.4-4.0); Mean Corpuscular HGB Conc 32.3 GM/DL (32-36); Mean Corpuscular Hemoglobin 30 PG (27-34); Mean Corpuscular Volume 92.8 FL (87-102); Mean Platelet Volume 10.3 FL (9.6-12.0); Monocytes # 0.2 10*3/uL (0.11-0.8); Monocytes % 1.6 % (1.7-12.7); Neutrophils # 12.8 10*3/uL (1.4-7.4); Neutrophils % 94.7 % (38.7-73.9); Platelet Count 196 T/CUMM (130-400); Red Cell Distribution Width 15.3 % (9.3-17.3); White Blood Count 13.5 T/CUMM (4-12)
[2018-11-05 04:17] LABS: Allen Test Positive; Pt O2 Delivery Device Ventilator
[2018-11-05 04:18] LABS: ABG Base Excess 0.9 MMOL/L (-2.5-2.5); ABG HCO3 25.2 MMOL/L (20-26); ABG Oxygen Saturation 99.3 % (95-100); ABG PCO2 41.2 MM HG (35-48); ABG PH 7.403 (7.35-7.45)
[2018-11-05 04:22] LABS: PT Patient Result 10.7 SECS; Partial Thromboplastin Time 23.6 SECS (0-40)
[2018-11-05 04:43] LABS: Band Neutrophils 1 % (0-10); Polychromasia Few; Segmented Neutrophils 99 % (50-85); Total Cells Counted 100
[2018-11-05 04:44] LABS: Platelet Estimate Adequate
[2018-11-05 04:46] LABS: Calcium 7.8 MG/DL (8.5-10.1); Osmolality,Calculated 295.4 MOS/KG (273-304); Potassium 4.5 MMOL/L (3.5-5.1)
[2018-11-05] MEDS: methylPREDNISolone SOD SUC 125 MG/2 ML VIAL IV SCH (06:20)
[2018-11-05] MEDS: SODIUM CHLORIDE 0.45% 1,000 ML IV SCH (06:24)
[2018-11-05] MEDS: PROPOFOL 1,000 MG/100 ML BOTTLE IV SCH (06:27)
[2018-11-05] MEDS: DORNASE ALFA 2.5 MG/2.5 ML VIAL RESP TX SCH (07:59)
[2018-11-05 09:29] VITALS: BP 133/68
[2018-11-05] MEDS: CHOLECALCIFEROL 400 UNIT TABLET PEG SCH (09:50)
[2018-11-05] MEDS: PANTOPRAZOLE 40 MG VIAL IV SCH (09:50)
[2018-11-05] MEDS: MONTELUKAST 10 MG TABLET PEG SCH (09:50)
[2018-11-05] MEDS: ROSUVASTATIN 10 MG TABLET PO SCH (09:50)
[2018-11-05] MEDS: LEVOTHYROXINE 112 MCG TABLET PEG SCH (09:50)
[2018-11-05] MEDS: cycloSPORINE OPH EMUL 1 VIAL BOTH EYES SCH (09:50)
[2018-11-05] MEDS: ALLOPURINOL 100 MG TABLET PEG SCH (09:51)
[2018-11-05] MEDS: METOPROLOL TARTRATE 50 MG TABLET PEG SCH (09:51)
[2018-11-05] MEDS: prednisoLONE ACETATE 1% OPH SUSP 5 ML BOTTLE LEFT EYE SCH (09:52)
[2018-11-05] MEDS: THEOPHYLLINE 5.33 MG/ML 30 ML/BOTTLE PEG SCH (09:52)
[2018-11-05] MEDS: MAGNESIUM OXIDE 400 MG TABLET PEG SCH (09:54)
[2018-11-05] MEDS ORDERED: FONDAPARINUX 2.5 MG/0.5 ML SYRINGE SUBCUT SCH (10:00)
[2018-11-05] MEDS ORDERED: FLUCONAZOLE 40 MG/ML 35 ML/BOTTLE PEG SCH (10:30)
[2018-11-05] MEDS: amLODIPine 5 MG TABLET PEG SCH (11:46)
[2018-11-05] MEDS: cefTRIAXone 1,000 MG in SYRINGE 1 EACH IV SCH (11:46)
== END 2018-11-05 13:00 | DRG 207 ==
LOC: EDUNIT# → EDBD → N.ED 05:05 → SUATTDRO 09:53 → N.EDINP 12:07 → SUATTDRO 12:07 → N.EDINP 15:52 → N.ICU 16:21 → N.5E 10-28 17:07 → N.ICU 10-29 08:15
PROVIDERS: ADMIT Internal Medicine; ATTEND Internal Medicine